=== PATIENT | male | born 1960 | race Caucasian/White ===

== ENCOUNTER 2016-05-31 06:48 | Emergency (ER) | payer SELFPAY ==
--- NOTE | 2016-05-31 07:25 | EDPHY ---
H & P HPI/ROS: Chief complaint. Abdominal pain HPI. 56-year-old male left flank pain for 2 days. He describes it as kidney pain when you have to go to the bathroom to urinate. He has had urinary frequency. The pain waxes and wanes but no radiation from the left flank. It is described as sharp. No anterior abdominal pain. It is not worse with movement or eating and in fact he can't quite get comfortable when it is flared up. No fever, nausea vomiting diarrhea. No similar symptoms previously ROS Constitutional. no fever/chills, no weakness Eyes. no problems with vision ENT. no sore throat, no nasal drainage Cardiovascular. no chest pain Respiratory. no shortness of breath, no cough Abdominal. Left flank pain . no problems urinating MS. no calf pain/swelling, no neck/back pain, no joint pain Skin. no rash Lymph. no swollen glands Neuro. no headache, no dizziness, no difficulty walking or with speech Past Medical/Surgical History: Past medical history diabetes, cholesterol, hypertension, mi Social History: Single nonsmoker no alcohol Smoking Status: Never smoked Physical Exam: General Appearance: Alert well-developed male mild distress vital signs are stable Eyes: Pupils equal and round no pallor or injection. ENT, Mouth: Mucous membranes are moist. Respiratory: There are no retractions, lungs are clear to auscultation. Cardiovascular: Regular rate and rhythm. Gastrointestinal: Abdomen is soft and nontender, no masses, bowel sounds normal. Patient shows me where it hurts in the left flank but it is not worse with palpation Neurological: Awake and alert, sensory and motor exams grossly normal. Skin: Warm and dry, no rashes. Musculoskeletal: Neck is supple nontender. Extremities symmetrical, full range of motion. Psychiatric: Patient is oriented X 3, there is no agitation. Constitutional: Initial Vital Signs Temperature (C) 36.8 C 05/31/16 06:51 Heart Rate 59 L 05/31/16 06:51 Respiratory Rate 20 05/31/16 06:51 Blood Pressure 185/95 H 05/31/16 06:51 O2 Sat (%) 92 05/31/16 06:51 O2 Delivery Mode Room Air Allergies/Adverse Reactions: bacitracin [From Neosporin] Allergy (Verified 05/31/16 06:51) bacitracin zinc [From Neosporin] Allergy (Verified 05/31/16 06:51) cephalexin [Cephalexin] Allergy (Verified 05/31/16 06:51) cephalexin monohydrate [From Keflex] Allergy (Verified 05/31/16 06:51) codeine [Codeine] Allergy (Verified 05/31/16 06:51) gramicidin D [From Neosporin] Allergy (Verified 05/31/16 06:51) latex [Latex] Allergy (Verified 05/31/16 06:51) mupirocin [From Bactroban] Allergy (Verified 05/31/16 06:51) mupirocin calcium [From Bactroban] Allergy (Verified 05/31/16 06:51) neomycin sulfate [From Neosporin] Allergy (Verified 05/31/16 06:51) NSAIDS (Non-Steroidal Anti-Inflamma [Nsaids] Allergy (Verified 05/31/16 06:51) peanut Allergy (Verified 05/31/16 06:51) Penicillins Allergy (Verified 05/31/16 06:51) polymyxin B [From Neosporin] Allergy (Verified 05/31/16 06:51) polymyxin B sulfate [From Neosporin] Allergy (Verified 05/31/16 06:51) Sulfa (Sulfonamide Antibiotics) Allergy (Verified 05/31/16 06:51) sulfamethoxazole [From Bactrim] Allergy (Verified 05/31/16 06:51) trimethoprim [From Bactrim] Allergy (Verified 05/31/16 06:51) clindamycin Allergy (Uncoded 05/31/16 06:51) Home Medications: Medication Instructions Recorded Albuterol [Proventil Inhaler HFA 2 puffs IH Q4H PRN 09/20/14 (*)] Insulin Aspart [novoLOG] 10 - 20 unit SC DAILY@1730 09/20/14 Lisinopril [Zestril 40 mg (*)] 40 mg PO DAILY 09/20/14 Aspirin EC [Aspirin EC 81 mg (*)] 81 mg PO DAILY 01/21/16 Cetirizine [ZyrTEC 10 mg (*)] 10 mg PO DAILY 01/21/16 Diltiazem HCl [Diltiazem 24Hr Cd] 180 mg PO DAILY 01/21/16 Hydrochlorothiazide [HCTZ (*)] 25 mg PO DAILY 01/21/16 Insulin Detemir [Levemir] 33 unit SQ HS #0 vial 01/24/16 Metoprolol Tartrate 04/06/16 Medical Decision Making - Diagnostics Imaging: CT abdomen and pelvis with IV contrast reviewed by me and discussed with Dr. Soriano which shows severe constipation. Otherwise normal Procedures: IV normal saline. Patient declines pain medication at this time ED Course/Re-evaluation: Re-evaluation at 8:10 a.m.. Patient is stable comfortable and does not wish any pain medication. The patient and I discussed laboratory evaluation including a normal urinalysis and serum blood sugar of 270. We discussed further imaging with CT scan of the abdomen and pelvis with IV contrast. Patient expresses understanding and agreement Re-evaluation 10:00 a.m.. The patient and I discussed laboratory and imaging study results. We discussed treatment plan including criteria for return and importance of follow-up and further evaluation. He expresses understanding and agreement Differential Diagnosis: I considered kidney stone, pyelonephritis, diverticulitis, AAA - Data Points Laboratory Results: Laboratory Results 05/31/16 07:35 05/31/16 07:35 05/31/16 05/31/16 05/31/16 07:35 07:35 07:15 WBC 8.95 10^3/uL 10^3/uL (3.80-9.50) RBC 5.89 10^6/uL 10^6/uL (4.40-6.38) Hgb 16.2 g/dL g/dL (13.7-17.5) Hct 48.4 % % (40.0-51.0) MCV 82.2 fL fL (81.5-99.8) MCH 27.5 pg L pg (27.9-34.1) MCHC 33.5 g/dL g/dL (32.4-36.7) RDW 14.0 % % (11.5-15.2) Plt Count 246 10^3/uL 10^3/uL (150-400) MPV 9.9 fL fL (8.7-11.7) Neut % (Auto) 75.9 % H % (39.3-74.2) Lymph % (Auto) 13.9 % L % (15.0-45.0) [place] % (Auto) 7.3 % % (4.5-13.0) Eos % (Auto) 2.3 % % (0.6-7.6) Baso % (Auto) 0.4 % % (0.3-1.7) Nucleat RBC Rel Count 0.0 % % (0.0-0.2) Absolute Neuts (auto) 6.79 10^3/uL H 10^3/uL (1.70-6.50) Absolute Lymphs (auto) 1.24 10^3/uL 10^3/uL (1.00-3.00) Absolute Monos (auto) 0.65 10^3/uL 10^3/uL (0.30-0.80) Absolute Eos (auto) 0.21 10^3/uL 10^3/uL (0.03-0.40) Absolute Basos (auto) 0.04 10^3/uL 10^3/uL (0.02-0.10) Absolute Nucleated RBC 0.00 10^3/uL 10^3/uL (0-0.01) Immature Gran % 0.2 % % (0.0-1.1) Immature Gran # 0.02 10^3/uL 10^3/uL (0.00-0.10) Sodium 138 mEq/L mEq/L (134-144) Potassium 4.8 mEq/L mEq/L (3.5-5.2) Chloride 104 mEq/L mEq/L (97-110) Carbon Dioxide 24 mEq/l mEq/l (22-31) Anion Gap 10 mEq/L mEq/L (8-16) BUN 16 mg/dL mg/dL (7-23) Creatinine 0.9 mg/dL mg/dL (0.7-1.3) Estimated GFR > 60 Glucose 270 mg/dL H mg/dL (70-100) Calcium 8.9 mg/dL mg/dL (8.5-10.4) Specimen Hemolysis 129 Urine Color YELLOW Urine Appearance CLEAR Urine pH 5.0 (5.0-7.5) Ur Specific [place] 1.017 (1.002-1.030) Urine Protein NEGATIVE (NEGATIVE) Urine Ketones TRACE H (NEGATIVE) Urine Blood NEGATIVE (NEGATIVE) Urine Nitrate NEGATIVE (NEGATIVE) Urine Bilirubin NEGATIVE (NEGATIVE) Urine Urobilinogen NEGATIVE EU EU (0.2-1.0) Ur Leukocyte Esterase NEGATIVE (NEGATIVE) Urine RBC 1-3 /hpf /hpf (0-3) Urine WBC 1-3 /hpf /hpf (0-3) Ur Epithelial Cells NONE SEEN /lpf /lpf (NONE-1+) Hyaline Casts 1-5 /lpf /lpf (0-1) Urine Mucus TRACE /lpf /lpf (NONE-1+) Ur Culture Indicated? NOT INDICATED (NI) Urine Glucose 3+ H (NEGATIVE) Medications Given: Discontinued Medications Sodium Chloride (Ns) 1,000 mls @ 0 mls/hr IV ONCE ONE PRN Reason: Wide Open Stop: 05/31/16 08:14 Last Admin: 05/31/16 08:31 Dose: 1,000 mls Departure - Departure Disposition: Home, Routine, Self-Care Clinical Impression: Abdominal pain Qualifiers: Abdominal location: left lower quadrant Qualified Code(s): R10.32 - Left lower quadrant pain Condition: Good Instructions: Constipation (ED), High Fiber Diet (ED) Additional Instructions: Increased fluids including fruit and prune juice. Magnesium citrate, irma Colace from the pharmacy without prescription necessary. Return for worsening pain, fever, vomiting. Recheck in 1-2 days if not improved Referrals: Kathy Faustin, PAC [Primary Care Provider] - 1 day, if not improved
[2016-05-31 07:58] LABS: COLOR YELLOW; LEUKOCYTE ESTERASE,URINE NEGATIVE (NEGATIVE); NITRITE,URINE NEGATIVE (NEGATIVE)
[2016-05-31 08:03] LABS: ANION GAP 10 mEq/L (8-16); CALCIUM 8.9 mg/dL (8.5-10.4); CARBON DIOXIDE 24 mEq/l (22-31); CHLORIDE 104 mEq/L (97-110); CREATININE 0.9 mg/dL (0.7-1.3); GLOMERULAR FILTRATION RATE > 60; GLUCOSE 270 mg/dL (70-100); POTASSIUM 4.8 mEq/L (3.5-5.2); SODIUM 138 mEq/L (134-144); SPECIMEN HEMOLYSIS 129
[2016-05-31 08:05] LABS: % IMMATURE GRANULYOCYTES 0.2 % (0.0-1.1); ABSOLUTE IMMATURE GRANULOCYTES 0.02 10^3/uL (0.00-0.10); ADD DIFF? NO; ADD MORPH? NO; ADD SCAN? NO; ATYPICAL LYMPHOCYTE FLAG 0 (0-99); FRAGMENT RBC FLAG 0 (0-99); HEMATOCRIT 48.4 % (40.0-51.0); HEMOGLOBIN 16.2 g/dL (13.7-17.5); LEFT SHIFT FLG 0 (0-99); LIPEMIA HEMOLYSIS FLAG 80 (0-99); MEAN CELL HEMOGLOBIN 27.5 pg (27.9-34.1); MEAN CELL HEMOGLOBIN CONCENTR. 33.5 g/dL (32.4-36.7); MEAN CELL VOLUME 82.2 fL (81.5-99.8); MEAN PLATELET VOLUME 9.9 fL (8.7-11.7); PLATELET CLUMPS FLAG 0 (0-99); PLATELET COUNT 246 10^3/uL (150-400); RED BLOOD CELL COUNT 5.89 10^6/uL (4.40-6.38)
[2016-05-31 08:06] LABS: MUCUS TRACE /lpf (NONE-1+)
[2016-05-31] MEDS ORDERED: NS 1,000 ML IV ONE (08:13)
[2016-05-31] MEDS ORDERED: IOPAMIDOL (ISOVUE-300) 100 ML BTL IV ONE (08:25)
[2016-05-31 10:22] VITALS: BP 128/79; PULSE 88; RESP 14; TEMP 98.4; O2SAT 96
== END 2016-05-31 10:21 | disposition home or self-care (01) ==
DX: R10.32 Left lower quadrant pain (principal); E11.9 Type 2 diabetes mellitus without complications; I10 Essential (primary) hypertension; I25.2 Old myocardial infarction; Z79.4 Long term (current) use of insulin; Z79.82 Long term (current) use of aspirin; Z91.040 Latex allergy status
CPT/HCPCS: Q9967

== ENCOUNTER 2016-06-06 06:07 | Observation (INO) | payer SELFPAY ==
--- NOTE | 2016-06-06 06:14 | EDPHY ---
H & P HPI/ROS: HPI CHIEF COMPLAINT: Syncope, chest pressure HISTORY OF PRESENT ILLNESS: This patient very pleasant 56-year-old male significant past medical history for coronary artery disease with stents he tells me 3 stents in his LAD, hypertension, hyperlipidemia, obesity, diabetes presents emergency room by EMS after he got very lightheaded while standing in the shower. Patient states he was getting a very hot shower for approximately 20 minutes all the sudden he was washing his hair and felt his arms get very heavy bilaterally. Patient states that his arms felt very heavy he started getting some chest pressure or fullness in the center of his chest and off the left side tells me he was nauseous and he was sweating. Patient tells me that he got out of the shower and sat on the toilet where he had a syncopal episode and then he tells me that while putting on his underwear he had 2 more separate syncopal episodes, he denies falling. Patient denies headache, fever or recent illness. He does tell me he was recently in the emergency room with constipation. Denies neck pain or back pain. Denies abdominal pain. No recent illness. Currently upon arrival to the emergency room he is complaining of a fullness sensation in the center of his chest and nausea. He denies shortness of breath or pleuritic pain. It is noted upon arrival is blood pressure is 200 systolic. Past Medical History: Hypertension, hyperlipidemia, diabetes, coronary artery disease, chronic left leg wound Past Surgical History: PTCA x3 stents in LAD, tonsillectomy Social History: Denies daily use of drugs alcohol tobacco products Family History: Noncontributory ROS REVIEW OF SYSTEMS: A comprehensive 10 point review of systems is otherwise negative aside from elements mentioned in the history of present illness. Exam Constitutional appears well nontoxic, triage nursing summary reviewed, vital signs reviewed, awake/alert. Eyes normal conjunctivae and sclera, EOMI, PERRLA. HENT normal inspection, atraumatic, moist mucus membranes, no epistaxis, neck supple/ no meningismus, no raccoon eyes. Respiratory clear to auscultation bilaterally, normal breath sounds, no respiratory distress, no wheezing. Cardiovascular rate normal, regular rhythm, no murmur, no edema, distal pulses normal. Gastrointestinal umbilical hernia present, soft, non-tender, no rebound, no guarding, normal bowel sounds, no distension, no pulsatile mass. Genitourinary no CVA tenderness. Musculoskeletal no midline vertebral tenderness, full range of motion, no calf swelling, no tenderness of extremities, no meningismus, good pulses, neurovascularly intact. Skin pink, warm, & dry, no rash, skin atraumatic. Neurologic awake, alert and oriented x 3, AAOx3, moves all 4 extremities equally, motor intact, sensory intact, CN II-XII intact, normal cerebellar, normal vision, normal speech. Psychiatric normal mood/affect. Heme/Lymph/Immune no lymphadenopathy. Differential diagnosis includes but is not limited to: ACS, atypical chest pain , pneumothorax, pneumonia, pulmonary embolism, aortic dissection, congestive heart failure, tumor, musculoskeletal pain, esophageal pain, GERD, peptic ulcer disease, pancreatitis Medical Decision Making: this patient had an IV established obtain blood work patient be placed on a full cardiac monitor technician. Patient had an EKG to rule out acute coronary syndrome, chest x-ray. Patient be given full-dose aspirin and nitroglycerin to see if this improves with this chest discomfort. He will be gently hydrated IV fluids and Zofran for nausea. Re-evaluation: EKG interpretation by me on record in [facility] system. Impression time of EKG 6:14 a.m., this is sinus rhythm rate of 81. Q-waves present in lead V1, V2 lead 3 and AVF nonspecific T-wave in aVL and V6 and V4. When I compare this EKG to his EKG on 09/21/2014 very similar morphology. ED x-ray chest one view: image interpreted by myself however this shows cardiomegaly. Lung champagne are clear poor inspiratory effort. Mediastinum is unchanged from previous x-ray. 0702: re-evaluation at this time this patient was given nitroglycerin his blood pressure went from 200 systolic to 150s his chest pressure has resolved. This time is currently resting comfortably. I will need to admit this patient for ACS rule out. No indication this patient is having acute coronary syndrome. EKG is unchanged from previous EKGs. Vital signs are stable. He did receive full-dose aspirin. Risk factors for chest pain include coronary artery disease with multiple stents , hypertension, hyperlipidemia, diabetes, obesity. Final diagnosis: Syncope, Chest pressure, hypertension. 0706: spoke with Dr. Owens who agrees to admit this patient for chest pain evaluation. Time admission at this time patient is hemodynamically stable without any chest pain greatly improved after nitroglycerin. Blood pressure down from 200 to 150s. Stable for admission to the [facility]. Source: Patient, EMS - Personal History Tetanus Vaccine Date: 2011 - Medical/Surgical History Hx Asthma: Yes Hx Chronic Respiratory Disease: Yes Hx Diabetes: Yes Hx Cardiac Disease: Yes Hx Renal Disease: No Hx Cirrhosis: No Hx Alcoholism: No Hx HIV/AIDS: No Hx Splenectomy or Spleen Trauma: No Other PMH: MEd hx-Diabetes,cholesterol,HTN,OK. Surg-umbilical hernia,dental, tonsils,3-stents - Social History Smoking Status: Never smoked Constitutional: Initial Vital Signs O2 Sat (%) 95 06/06/16 06:15 O2 Delivery Mode Room Air O2 (L/minute) 2 Allergies/Adverse Reactions: bacitracin [From Neosporin] Allergy (Verified 06/06/16 06:27) bacitracin zinc [From Neosporin] Allergy (Verified 06/06/16 06:27) cephalexin [Cephalexin] Allergy (Verified 06/06/16 06:27) cephalexin monohydrate [From Keflex] Allergy (Verified 06/06/16 06:27) codeine [Codeine] Allergy (Verified 06/06/16 06:27) gramicidin D [From Neosporin] Allergy (Verified 06/06/16 06:27) latex [Latex] Allergy (Verified 06/06/16 06:27) mupirocin [From Bactroban] Allergy (Verified 06/06/16 06:27) mupirocin calcium [From Bactroban] Allergy (Verified 06/06/16 06:27) neomycin sulfate [From Neosporin] Allergy (Verified 06/06/16 06:27) NSAIDS (Non-Steroidal Anti-Inflamma [Nsaids] Allergy (Verified 06/06/16 06:27) peanut Allergy (Verified 06/06/16 06:27) Penicillins Allergy (Verified 06/06/16 06:27) polymyxin B [From Neosporin] Allergy (Verified 06/06/16 06:27) polymyxin B sulfate [From Neosporin] Allergy (Verified 06/06/16 06:27) Sulfa (Sulfonamide Antibiotics) Allergy (Verified 06/06/16 06:27) sulfamethoxazole [From Bactrim] Allergy (Verified 06/06/16 06:27) trimethoprim [From Bactrim] Allergy (Verified 06/06/16 06:27) clindamycin Allergy (Uncoded 06/06/16 06:27) Home Medications: Medication Instructions Recorded Albuterol [Proventil Inhaler HFA 2 puffs IH Q4H PRN 09/20/14 (*)] Insulin Aspart [novoLOG] 10 - 20 unit SC DAILY@1730 09/20/14 Lisinopril [Zestril 40 mg (*)] 40 mg PO DAILY 09/20/14 Aspirin EC [Aspirin EC 81 mg (*)] 81 mg PO DAILY 01/21/16 Cetirizine [ZyrTEC 10 mg (*)] 10 mg PO DAILY 01/21/16 Diltiazem HCl [Diltiazem 24Hr Cd] 180 mg PO DAILY 01/21/16 Hydrochlorothiazide [HCTZ (*)] 25 mg PO DAILY 01/21/16 Insulin Detemir [Levemir] 33 unit SQ HS #0 vial 01/24/16 Metoprolol Tartrate 04/06/16 Medical Decision Making - Data Points Laboratory Results: Laboratory Results 06/06/16 06:15 06/06/16 06:15 06/06/16 06/06/16 06/06/16 06:15 06:15 06:15 WBC 10.68 10^3/uL H 10^3/uL (3.80-9.50) RBC 6.22 10^6/uL 10^6/uL (4.40-6.38) Hgb 17.2 g/dL g/dL (13.7-17.5) Hct 50.4 % % (40.0-51.0) MCV 81.0 fL L fL (81.5-99.8) MCH 27.7 pg L pg (27.9-34.1) MCHC 34.1 g/dL g/dL (32.4-36.7) RDW 13.9 % % (11.5-15.2) Plt Count 249 10^3/uL 10^3/uL (150-400) MPV 9.3 fL fL (8.7-11.7) Neut % (Auto) 83.6 % H % (39.3-74.2) Lymph % (Auto) 8.8 % L % (15.0-45.0) [place] % (Auto) 6.1 % % (4.5-13.0) Eos % (Auto) 0.7 % % (0.6-7.6) Baso % (Auto) 0.4 % % (0.3-1.7) Nucleat RBC Rel Count 0.0 % % (0.0-0.2) Absolute Neuts (auto) 8.93 10^3/uL H 10^3/uL (1.70-6.50) Absolute Lymphs (auto) 0.94 10^3/uL L 10^3/uL (1.00-3.00) Absolute Monos (auto) 0.65 10^3/uL 10^3/uL (0.30-0.80) Absolute Eos (auto) 0.08 10^3/uL 10^3/uL (0.03-0.40) Absolute Basos (auto) 0.04 10^3/uL 10^3/uL (0.02-0.10) Absolute Nucleated RBC 0.00 10^3/uL 10^3/uL (0-0.01) Immature Gran % 0.4 % % (0.0-1.1) Immature Gran # 0.04 10^3/uL 10^3/uL (0.00-0.10) PT 13.8 SEC SEC (12.0-15.0) INR 1.07 (0.83-1.16) APTT 23.0 SEC SEC (23.0-38.0) Sodium 139 mEq/L mEq/L (134-144) Potassium 3.8 mEq/L mEq/L (3.5-5.2) Chloride 103 mEq/L mEq/L (97-110) Carbon Dioxide 22 mEq/l mEq/l (22-31) Anion Gap 14 mEq/L mEq/L (8-16) BUN 16 mg/dL mg/dL (7-23) Creatinine 1.0 mg/dL mg/dL (0.7-1.3) Estimated GFR > 60 Glucose 281 mg/dL H mg/dL (70-100) Calcium 9.4 mg/dL mg/dL (8.5-10.4) Magnesium 1.8 mg/dL mg/dL (1.6-2.3) Total Bilirubin 1.3 mg/dL mg/dL (0.1-1.4) Conjugated Bilirubin 0.4 mg/dL mg/dL (0.0-0.5) Unconjugated Bilirubin 0.9 mg/dL mg/dL (0.0-1.1) AST 25 IU/L IU/L (17-59) ALT 45 IU/L IU/L (21-72) Alkaline Phosphatase 112 IU/L IU/L (38-126) Creatine Kinase 115 IU/L IU/L (0-224) CK-MB (CK-2) Fraction 2.82 ng/mL ng/mL (0-3.19) Troponin I < 0.012 ng/mL ng/mL (0-0.034) NT-Pro-B Natriuret Pep 154 pg/mL H pg/mL (0-125) Total Protein 8.0 g/dL g/dL (6.3-8.2) Albumin 4.3 g/dL g/dL (3.5-5.0) Lipase 87.0 IU/L IU/L (23-300) Medications Given: Discontinued Medications Aspirin (Aspirin) 324 mg PO EDNOW ONE Stop: 06/06/16 06:16 Last Admin: 06/06/16 06:35 Dose: Not Given Sodium Chloride (Ns) 500 mls @ 0 mls/hr IV ONCE ONE PRN Reason: As Directed Stop: 06/06/16 06:16 Last Admin: 06/06/16 06:30 Dose: 500 mls Nitroglycerin (Nitrostat) 0.4 mg SL Q5M PRN PRN Reason: Chest Pain Stop: 06/06/16 06:26 Last Admin: 06/06/16 06:37 Dose: 0.4 mg Departure - Departure Disposition: [facility] Inpatient Acute Clinical Impression: Syncope Qualifiers: Syncope type: unspecified Qualified Code(s): R55 - Syncope and collapse Chest pain Qualifiers: Chest pain type: unspecified Qualified Code(s): R07.9 - Chest pain, unspecified Condition: Good Referrals: Patient,NotPresent [Unknown] - As per Instructions
[2016-06-06] MEDS ORDERED: NITROGLYCERIN 0.4 MG BTL SL PRN (06:15)
[2016-06-06] MEDS ORDERED: NS 500 ML IV ONE (06:15)
[2016-06-06] MEDS ORDERED: ASPIRIN 81 MG CHEWABLE TAB PO ONE (06:15)
--- NOTE | 2016-06-06 06:17 | CPEKG ---
Heart Rate: 81 RR Interval: 741 P-R Interval: 188 QRSD Interval: 96 QT Interval: 372 QTC Interval: 432 P Woodruff: 42 QRS Woodruff: -13 T Wave Woodruff: 59 EKG Severity - ABNORMAL ECG - EKG Impression: SINUS RHYTHM EKG Impression: PROBABLE LEFT ATRIAL ABNORMALITY EKG Impression: NONSPECIFIC T ABNORMALITIES, ANT-LAT LEADS Electronically Signed By: Yung Kendrick 07-Jun-2016 06:38:41
[2016-06-06 06:31] LABS: % IMMATURE GRANULYOCYTES 0.4 % (0.0-1.1); ABSOLUTE IMMATURE GRANULOCYTES 0.04 10^3/uL (0.00-0.10); ADD DIFF? NO; ADD MORPH? NO; ADD SCAN? NO; ATYPICAL LYMPHOCYTE FLAG 0 (0-99); FRAGMENT RBC FLAG 0 (0-99); HEMATOCRIT 50.4 % (40.0-51.0); HEMOGLOBIN 17.2 g/dL (13.7-17.5); LEFT SHIFT FLG 0 (0-99); LIPEMIA HEMOLYSIS FLAG 90 (0-99); MEAN CELL HEMOGLOBIN 27.7 pg (27.9-34.1); MEAN CELL HEMOGLOBIN CONCENTR. 34.1 g/dL (32.4-36.7); MEAN PLATELET VOLUME 9.3 fL (8.7-11.7); PLATELET CLUMPS FLAG 0 (0-99); PLATELET COUNT 249 10^3/uL (150-400); RED BLOOD CELL COUNT 6.22 10^6/uL (4.40-6.38); RED CELL DISTRIBUTION WIDTH 13.9 % (11.5-15.2)
[2016-06-06] MEDS ORDERED: NITROGLYCERIN 0.4 MG BTL SL ONE (06:36)
[2016-06-06 06:39] LABS: INR 1.07 (0.83-1.16); PROTIME(PATIENT) 13.8 SEC (12.0-15.0)
[2016-06-06 06:53] LABS: ALANINE AMINOTRANSFERASE 45 IU/L (21-72); ALBUMIN 4.3 g/dL (3.5-5.0); ALKALINE PHOSPHATASE 112 IU/L (38-126); ANION GAP 14 mEq/L (8-16); ASPARTATE AMINOTRANSFERASE 25 IU/L (17-59); BILIRUBIN,TOTAL 1.3 mg/dL (0.1-1.4); BILIRUBIN-CONJUGATED 0.4 mg/dL (0.0-0.5); BILIRUBIN-UNCONJUGATED 0.9 mg/dL (0.0-1.1); CALCIUM 9.4 mg/dL (8.5-10.4); CARBON DIOXIDE 22 mEq/l (22-31); CHLORIDE 103 mEq/L (97-110); GLOMERULAR FILTRATION RATE > 60; GLUCOSE 281 mg/dL (70-100); MAGNESIUM 1.8 mg/dL (1.6-2.3); POTASSIUM 3.8 mEq/L (3.5-5.2); SODIUM 139 mEq/L (134-144)
[2016-06-06 07:05] LABS: CREATINE KINASE-MB FRACTION 2.82 ng/mL (0-3.19); TROPONIN I < 0.012 ng/mL (0-0.034)
[2016-06-06] MEDS ORDERED: ALBUTEROL 60 PUFFS/8 GM MDI IH PRN (10:55)
[2016-06-06] MEDS ORDERED: LISINOPRIL 40 MG TAB PO ONE (10:57)
[2016-06-06] MEDS ORDERED: DILTIAZEM CD 180 MG CAP PO ONE (10:58)
[2016-06-06] MEDS ORDERED: ACETAMINOPHEN 325 MG TAB PO PRN (11:03)
[2016-06-06] MEDS ORDERED: ONDANSETRON 4 MG/2 ML VIAL IVP PRN (11:03)
[2016-06-06] MEDS ORDERED: D50W 25 GM/50 ML SYR IVP PRN (11:07)
[2016-06-06] MEDS ORDERED: IOPAMIDOL (ISOVUE-370) 150 ML BTL IV ONE (11:44)
[2016-06-06] MEDS: NS 1,000 ML IV SCH (11:51)
--- NOTE | 2016-06-06 11:56 | GHP ---
DATE OF ADMISSION: 06/06/2016 CHIEF COMPLAINT: Chest pain and syncope. HISTORY: The patient is a 56-year-old male with a history of coronary artery disease, status post m ultiple stents to his LAD. His last stent to the LAD placed by Dr. Patrick was in September of 2014. He has been having no recurrent symptoms until this morning. This morning he was taking a hot shower, when he suddenly became lightheaded. He was washing his hair, and noticed both of his arms felt hea vy. The pain subsequently moved into his chest, which he described more like a fullness, feeling li ke a gas bubble in the center of his chest. He did have some associated nausea, diaphoresis. He fe lt like his heart was racing. He has been having recent increased GI symptoms, and does have a hist ory of diabetic gastroparesis. He recently had an ER visit a few days ago for constipation. He got out of the shower and sat on the toilet, where he promptly passed out. At that point he knew , given his cardiac history, he needed evaluation. So, he decided to quickly get dressed before he called 911. He passed out 2 more times after that. He has previous anginal equivalent prior to his previous stents with syncope and back pain. He has never had a classic chest pain pattern. Right now he is chest pain-free, feeling hungry, tired and under caffeinated. PAST MEDICAL HISTORY: 1. Hypertension. 2. Diabetes type 2. 3. Coronary artery disease, status post multiple stents to the left anterior descending. Last sten t placement was September 2014. 4. Hyperlipidemia. 5. Aspirin allergy, status post desensitization. 6. Macular degeneration, on ocular Thang injections. 7. Diabetic gastroparesis. MEDICATIONS: Please see computer record for full detailed list. ALLERGIES: Bacitracin, Keflex, penicillin, sulfa, clindamycin, NSAIDs and aspirin. SOCIAL HISTORY: No smoking. No alcohol. He works in market research. He lives with his elderly p arents. He has 2 grown children. His daughter is his power of attorney at law. REVIEW OF SYSTEMS: Complete review of systems obtained. Review of system is negative regarding con stitutional, HEENT, GI, pulmonary, cardiovascular, , hematology, skin, musculoskeletal, endocrine, psych, except for positives as in HPI. FAMILY HISTORY: Reviewed, noncontributory to presenting complaint. PHYSICAL EXAMINATION: GENERAL: Well-developed, well-nourished male, in no acute distress. VITAL S IGNS: Temperature is 36.9, pulse 71, blood pressure 209/107, saturating 86% on room air. EYE: Nor mal conjunctiva. Pupils equal, react to light. ENT: Normal ears and nose. Hearing intact. Deborah l lips and teeth. Oropharynx moist. NECK: Trachea midline. No thyromegaly. CHEST: Normal effor t. LUNGS: Clear to auscultation bilaterally. CARDIOVASCULAR: Regular rate and rhythm. No murmur . No lower extremity edema. ABDOMEN: Soft, nontender. No hepatosplenomegaly. SKIN: Warm, dry, intact without rash. MUSCULOSKELETAL: No cyanosis or clubbing. Strength 5/5 upper and lower extre mities. NEURO: Cranial nerves intact. Normal sensation light touch. PSYCH: Alert and oriented x 3. Normal affect. Normal judgment and insight. Normal memory. LABS: White count 10.6, hematocrit 50.4, platelets 249, sodium 139, potassium 3.8, chloride 103, bi carb 22, BUN 16, creatinine 1.0, glucose 281. LFTs are negative. Lipase is 87, BNP is 154, troponi n is negative, INR is 1.07. EKG reviewed by me. My personal interpretation is normal sinus rhythm. Inferior lateral T-wave inv ersions. Review of old EKG and old chart shows that these EKG changes are consistent with his last EKG on record. Chest x-ray is negative. MEDICAL RECORD REVIEW: I reviewed medical chart and regarding previous stent placement September [address] Patrick. Also had an admission in 2012 for the same. ASSESSMENT/PLAN: 1. Chest pain. His EKG is unchanged from previous, and his initial troponin is negative. He is no w chest pain free. We will continue with aspirin metoprolol. We will follow serial troponins and E KGs. If these remain unchanged, we will schedule for stress test in the morning. 2. Syncope. This very well may be vasodilatation due to being in a hot shower versus a vagal event , given his recent increasing GI symptoms. Syncope, however, has been his anginal equivalent in the past, indicating that he has needed a stent placement. We will watch him on telemetry, and check a n echocardiogram and a TSH. 3. Hypoxemia. He did present 86% on room air with no obvious chest x-ray findings. Given his pres entation of syncope, we will get a CT angiogram of the chest, rule out PE. 4. Hypertension. This is uncontrolled on presentation. We will resume his home medications, plus add p.r.n. hydralazine. Perhaps hypertensive urgency may be contributing to his presenting complain ts. 5. Coronary artery disease, status post previous stents to left anterior descending as discussed ab ove. We will recheck a lipid panel in the morning, as he does not appear to be on a statin. 6. Diabetes type 2. We will continue his usual insulin plus an insulin sliding scale. 7. Aspirin allergy, status post desensitization. He is able to tolerate a daily aspirin now, as lo ng as he takes his Zyrtec with it. That will be continued. COURSE: Code status is full. ADMISSION STATUS: We will admit to observation as depending on workup above will determine clinical course. DVT PROPHYLAXIS: He is high risk. We will place on subcu Lovenox. /[id number]/[id number]
[2016-06-06] MEDS ORDERED: NON-FORMULARY NEW DRUG (Insulin Aspart [Novolog] 5 UNIT) SC SCH (12:00)
--- NOTE | 2016-06-06 13:17 | ECHO ---
[id number] + + [address] : : [place] [address] : : [phone] + + Adult Echocardiographic Report + ---+ :Name: PENNY DUARTE JStudy Date: 06/06/2016 11:37 AM : : Hospital Admission Number: [id number] Location: 212: :: 1960 Gender: Male Height: 69 in : :Age: 56 yrs Race: WH,White Weight: 235 lb : :Reason For Study: syncope : : BSA: 2.2 meters2 : :History: Stents, CAD : + ---+ MMode/2D Measurements \T\ Calculations IVSd: 0.92 cm LVIDd: 4.9 cm FS: 33.1 % LVOT diam: 2.2 cm LVPWd: 1.3 cm LVIDs: 3.3 cm EDV(Teich): 114.4 ml LVOT area: 3.8 cm2 ESV(Teich): 44.1 ml EF(Teich): 61.4 % Normal Measurement Values: + + :LVIDd (3.5-5.7cm) IVSd (0.6-1.1cm) LVPWd (0.6-1.1cm) Aortic Root (2.0-3.7cm)Left Atrium (1.5-4.0cm): :LV Vol(d) (76-115ml) LV Vol(s) (29-48ml) Ejec Fraction (50-65%)PV Sergio (0.6- 1.2m/s) TV Sergio (0.4-1.0m/s) : :MV E Sergio (0.8-1.0m/s)MV A Sergio (0.3-1.0m/s)LVOT Sergio (0.7-1.2m/s) Asc Ao Sergio ( 0.9-1.8m/s) : + + Doppler Measurements \T\ Calculations MV E max sergio: MV V2 max: Ao V2 max: LV V1 max: 59.2 cm/sec 118.0 cm/sec 169.5 cm/sec 123.0 cm/sec MV A max sergio: MV max PG: Ao max PG: LV V1 max P.8 cm/sec 5.6 mmHg 11.5 mmHg 6.1 mmHg MV E/A: 0.62 MV V2 mean: Ao mean PG: LV V1 mean PG: MV dec time: 57.1 cm/sec 5.0 mmHg 3.0 mmHg 0.20 sec MV mean PG: Ao V2 mean: LV V1 mean: 2.0 mmHg 108.0 cm/sec 83.6 cm/sec MV V2 VTI: 35.1 cmAo V2 VTI: 36.2 cm LV V1 VTI: 32.0 cm MVA(VTI): 3.5 cm2 JOANNA(I,D): 3.4 cm2 JOANNA(V,D): 2.8 cm2 SV(LVOT): 121.6 ml PA V2 max: RAP systole: 107.0 cm/sec 15.0 mmHg PA max P.6 mmHg Left Ventricle The left ventricle is normal in size and function. There is borderline concentric left ventricular hypertrophy. The left ventricular ejection fraction is normal. There is Doppler evidence for diastolic dysfunction. Regional wall motion abnormalities cannot be excluded due to limited visualization. Right Ventricle The right ventricle is normal in size and function. Atria The left atrial size is normal. Right atrial size is normal. The interatrial septum is intact with no evidence for an atrial septal defect. Mitral Valve The mitral valve is normal in structure and function. There is no mitral valve stenosis. There is trace mitral regurgitation. Tricuspid Valve The tricuspid valve is normal in structure and function. There is no tricuspid stenosis. There is trace tricuspid regurgitation. Right ventricular systolic pressure is normal. Aortic Valve The aortic valve is normal in structure and function. There is no aortic stenosis. There is no aortic insufficiency. Pulmonic Valve The pulmonic valve is not well visualized. There is no pulmonic valvular stenosis. There is no pulmonic valvular regurgitation. Great Vessels The aortic root is normal size. Pericardium/Pleural There is a fat pad seen. Conclusion A complete two-dimensional transthoracic echocardiogram was performed (2D, M-mode, Doppler and color flow Doppler). The study was technically difficult. The left ventricle is normal in size and function. There is borderline concentric left ventricular hypertrophy. The left ventricular ejection fraction is normal. There is Doppler evidence for diastolic dysfunction. Normal appearing valvular structures. There is trace mitral regurgitation. There is trace tricuspid regurgitation. Right ventricular systolic pressure is normal. Final Reading Physician: Jese Young signed on 06/06/2016 01:16 PM Ordering Physician: Beth Monroy Performed By: Katherin Argueta
[2016-06-06] MEDS: INSULIN REGULAR HUMAN 100 UNIT/ML SC SCH ×3 (13:29→22:17)
[2016-06-06] MEDS: INSULIN LISPRO 100 UNIT/ML SC SCH ×2 (13:30→18:25)
[2016-06-06] MEDS ORDERED: METOPROLOL TARTRATE 50 MG TAB PO SCH (21:00)
[2016-06-06] MEDS ORDERED: INSULIN DETEMIR 33 UNIT SQ SCH (21:00)
[2016-06-06] MEDS: hydrALAZINE 20 MG/ML VIAL IVP PRN (21:09)
[2016-06-06] MEDS: INSULIN GLARGINE 100 UNITS/ML SYRINGE SC SCH (22:06)
[2016-06-06] MEDS: METOPROLOL TARTRATE 25 MG TAB PO SCH (22:08)
[2016-06-07] MEDS: NS 1,000 ML IV SCH (02:00)
[2016-06-07] MEDS: hydrALAZINE 20 MG/ML VIAL IVP PRN (05:00)
[2016-06-07 05:33] LABS: % IMMATURE GRANULYOCYTES 0.3 % (0.0-1.1); ABSOLUTE IMMATURE GRANULOCYTES 0.02 10^3/uL (0.00-0.10); ADD DIFF? NO; ADD MORPH? NO; ADD SCAN? NO; ATYPICAL LYMPHOCYTE FLAG 10 (0-99); FRAGMENT RBC FLAG 0 (0-99); HEMATOCRIT 48.1 % (40.0-51.0); LEFT SHIFT FLG 0 (0-99); LIPEMIA HEMOLYSIS FLAG 80 (0-99); MEAN CELL HEMOGLOBIN 27.8 pg (27.9-34.1); MEAN CELL HEMOGLOBIN CONCENTR. 33.3 g/dL (32.4-36.7); MEAN CELL VOLUME 83.5 fL (81.5-99.8); MEAN PLATELET VOLUME 9.5 fL (8.7-11.7); PLATELET CLUMPS FLAG 0 (0-99); PLATELET COUNT 228 10^3/uL (150-400); RED BLOOD CELL COUNT 5.76 10^6/uL (4.40-6.38); RED CELL DISTRIBUTION WIDTH 14.2 % (11.5-15.2)
[2016-06-07 06:12] LABS: ANION GAP 10 mEq/L (8-16); CALCIUM 8.7 mg/dL (8.5-10.4); CARBON DIOXIDE 23 mEq/l (22-31); CHLORIDE 106 mEq/L (97-110); CHOLESTEROL 165 mg/dL (140-220); CHOLESTEROL/HDL RATIO 3.84 RATIO (1.00-4.97); CREATININE 0.7 mg/dL (0.7-1.3); GLOMERULAR FILTRATION RATE > 60; GLUCOSE 184 mg/dL (70-100); HIGH DENSITY LIPOPROTEIN 43 mg/dL (40-65); LDL/HDL RATIO 2.21 RATIO (1.00-3.64); LOW DENSITY LIPOPROTEIN 95 mg/dL (80-100); NON-HIGH DENSITY LIPOPROTEIN 122 mg/dL (90-129); POTASSIUM 4.2 mEq/L (3.5-5.2); SODIUM 139 mEq/L (134-144); TRIGLYCERIDE 138 mg/dL (40-150); VERY LOW DENSITY LIPOPROTEINS 27 mg/dL (8-25)
--- NOTE | 2016-06-07 08:40 | CPEKG ---
Heart Rate: 66 RR Interval: 909 P-R Interval: 184 QRSD Interval: 92 QT Interval: 396 QTC Interval: 415 P Clifton: 63 QRS Clifton: 5 EKG Severity - ABNORMAL ECG - EKG Impression: SINUS RHYTHM EKG Impression: CONSIDER ANTEROSEPTAL INFARCT EKG Impression: NONSPECIFIC T ABNORMALITIES, LATERAL LEADS Electronically Signed By: Jordan Hill 07-Jun-2016 10:00:52
[2016-06-07] MEDS: INSULIN REGULAR HUMAN 100 UNIT/ML SC SCH ×2 (08:48→17:37)
[2016-06-07] MEDS: INSULIN LISPRO 100 UNIT/ML SC SCH ×3 (08:48→17:59)
[2016-06-07] MEDS: METOPROLOL TARTRATE 25 MG TAB PO SCH ×2 (08:49→21:28)
[2016-06-07] MEDS: HYDROCHLOROTHIAZIDE 25 MG TAB PO SCH (08:49)
[2016-06-07] MEDS: DILTIAZEM CD 180 MG CAP PO SCH (08:49)
[2016-06-07] MEDS: CETIRIZINE 10 MG TAB PO SCH (08:50)
[2016-06-07] MEDS: LISINOPRIL 40 MG TAB PO SCH (08:50)
[2016-06-07] MEDS: ASPIRIN EC 81 MG TAB PO SCH (08:50)
[2016-06-07] MEDS ORDERED: BENZOCAINE (ORAJEL) GEL 11.9GM TUBE TP PRN (09:21)
[2016-06-07] MEDS ORDERED: REGADENOSON 0.4 MG/5 ML SYR IVP ONE (12:09)
--- NOTE | 2016-06-07 12:55 | PDCARST ---
CAR Stress Test Results Type of Stress Test: Lexiscan stress test Indication: syncope/known CAD Description of Procedure: After informed consent was obtained, pt was established to ECG, oximetry, HR, and BP monitoring. At b/l, he has SR with lateral ST-T w abn and Twi, BP 136/84, HR 70, O2 sat 95% RA. Lexiscan was infused with minimal side effects. BP, HR, and oximetry stable throughout test. ECG without any significant changes from baseline. Impression: Uneventful Lexiscan Conclusion: Await nuclear images.
[2016-06-07] MEDS ORDERED: IOPAMIDOL (ISOVUE-370) 150 ML BTL IV ONE ×2 (13:25→13:27)
[2016-06-07] MEDS ORDERED: BIVALIRUDIN 250 MG/5 ML VIAL IV ONE (13:25)
[2016-06-07] MEDS ORDERED: LIDOCAINE 1% 30 ML SDV ONE (13:26)
[2016-06-07] MEDS ORDERED: NITROGLYCERIN 1,500 MCG/15 ML VIAL MISC ONE (13:26)
[2016-06-07] MEDS ORDERED: fentaNYL 100 MCG/2 ML INJ ONE (13:26)
[2016-06-07] MEDS ORDERED: DIAZEPAM 5 MG TAB PO ONE (13:27)
[2016-06-07] MEDS ORDERED: FAMOTIDINE 20 MG TAB PO ONE (13:27)
[2016-06-07] MEDS ORDERED: diphenhydrAMINE 25 MG CAP PO ONE ×2 (13:27→13:50)
[2016-06-07] MEDS ORDERED: ASPIRIN EC 325 MG TAB PO ONE ×2 (13:27→13:51)
[2016-06-07] MEDS ORDERED: MIDAZOLAM 2 MG/2 ML VIAL ONE ×3 (13:27→14:15)
[2016-06-07] MEDS ORDERED: NS 1,000 ML IV ONE (13:27)
--- NOTE | 2016-06-07 13:27 | PDCARPN ---
Cardiology Progress Note Chief Complaint: syncope Assessment/Plan: Assessment: Cristhian is a 56 y/o M with PMH T2DM (poorly controlled), HTN, dyslipidemia, and CAD with prior interventions to LAD in . He presented after having a syncopal episode subsequent to taking a hot shower. He felt like his towel was very heavy. He was able to get over to the toilet and sit down and proceeded to lose consciousness for what feel feels was a couple of minutes. His previous symptoms that heralded cardiac issues was syncope and back pain, and so he presented to the ED for further evaluation. #. syncope: enzymes negative/ ECG mostly at b/l. echo shows no RWMA though it was a technically difficult study pt had nausea/vomiting, AF, cp after nuclear imaging completed- pt is being sent to CCL for urgent CCL #. CAD: not on statin for unclear reasons/ cont ASA and BB #. htn: BP elevated possibly due to decreased Metoprolol dose or pt was just having poor BP control add scheduled Hydralazine to HCTZ, Cardizem, Lisinopril, and Metoprolol if this does not improve BP, would consider imaging to r/o renal artery stenosis #. T2DM: appears to be poorly controlled pt will need lifestyle interventions #. AF: new problem more recs to follow [facility] 06/07/16 13:06 Subjective: He reports feeling chilled and nauseated. Post nuc imaging, developed vomiting. Is in AF currently with cp. Reviewed/Discussed With: hospitalist (Dr. Monroy) Objective: Vital Signs (8 Hrs) Temp Pulse Resp BP Pulse Ox 06/07/16 11:22 98.1 F 72 19 180/95 H 95 06/07/16 08:45 96 06/07/16 07:33 97.8 F 65 17 170/83 H 96 Intake/Output (24 Hrs) 06/06/16 06/07/16 06/08/16 05:59 05:59 05:59 Intake Total 2480 Output Total 1100 Balance 1380 Intake: Oral (ml) 580 IV Infused (ml) 1900 Ns 1,000 ml @ 100 mls/hr 1400 IV CONT JESUS Rx#: [id number] Output: Urine (ml) 1100 Urinal 1100 Other: Weight 106.8 kg Intake Quantity Yes Sufficient Output Comment Urinal wt 107.3 Number of Voids 1 Toilet 3 Urinal 2 Result Diagrams: 06/07/16 04:30 06/07/16 04:30 Cardiac Labs: Cardiac Lab Results (72 Hrs) 06/06/16 06/06/16 17:50 11:34 Troponin I 0.020 0.020 EKG: SR with lat T w inversion Telemetry: SR with Twi Echocardiogram: EF wnl, bord LVH - Physical Exam Constitutional: no apparent distress Eyes: PERRL Ears, Nose, Mouth, Throat: moist mucous membranes Cardiovascular: no rubs, no gallops, No systolic murmur Respiratory: clear to auscultate bilat, no crackles Neurologic: AAOx3 Psychiatric: cooperative, interactive ICD10 Worksheet Patient Problems: Problems Problem Status Onset Chest pain Acute Syncope Acute Acute anterior epistaxis Acute Cellulitis Acute Chest pain Acute Coronary angioplasty status Acute
[2016-06-07 13:47] LABS: ANION GAP 14 mEq/L (8-16); CALCIUM 9.8 mg/dL (8.5-10.4); CARBON DIOXIDE 25 mEq/l (22-31); CHLORIDE 98 mEq/L (97-110); CREATININE 0.7 mg/dL (0.7-1.3); GLOMERULAR FILTRATION RATE > 60; GLUCOSE 265 mg/dL (70-100); SODIUM 137 mEq/L (134-144)
[2016-06-07] MEDS ORDERED: FAMOTIDINE 20 MG TAB ONE (13:51)
[2016-06-07] MEDS ORDERED: DIAZEPAM 5 MG TAB ONE (13:51)
[2016-06-07 13:58] LABS: CREATINE KINASE-MB FRACTION 2.19 ng/mL (0-3.19); TROPONIN I < 0.012 ng/mL (0-0.034)
[2016-06-07] MEDS ORDERED: hydrALAZINE 20 MG/ML VIAL ONE (14:20)
--- NOTE | 2016-06-07 14:29 | PDDXCAT ---
Diagnostic Cath Note - . Date: 06/07/16 Fleet Sales Manager: Ronny Indication: other (h/o CAD and prior PCI; chest pain, diaphoresis, nausea, vomiting, and new a-fib following Lexiscan Nuc stress) - Procedure Access: right groin Procedure: left heart catheterization, coronary angiography, left ventriculogram - Materials Left Heart Cath size: 6F Left Heart Cath materials: standard multipack (JL4, JR4, pigtail) - Findings-Left Heart Catheterization LM: Normal. LAD: Previously placed stents in mid-LAD patent with approximately 20 to 30% restenosis in the mid-portion of the stented segment; o/w minimal irregularities. LCX: Minimal irregularities. RCA: Mild to moderate disease of the mid-RCA up to 40%. EDP: 16 mmHg LVEF: 70% Wall motion: Normal. Estimated blood loss: <50ml Closure method: manual pressure Assessment: 1) Normal LV systolic function. 2) Qaq-flcs-lgtllvmv restensosis of LAD stent site. 3) Qna-autx-jjtmnslb disease of the mid-RCA. Likely had a significant vasovagal episode following pharmacologic stress test. Now in rate controlled atrial fibrillation. If does not spontaneoulsy convert to sinus rhythm overnight can consider cardioversion prior to discharge or early next week as an outpatient. Will start Eliquis 4 hours after cath. Patient Problems: Problems Problem Status Onset Chest pain Acute Syncope Acute Acute anterior epistaxis Acute Cellulitis Acute Chest pain Acute Coronary angioplasty status Acute
[2016-06-07] MEDS: ENOXAPARIN 40 MG/0.4 ML SYR SC SCH (17:38)
[2016-06-07] MEDS: hydrALAZINE 10 MG TAB PO SCH ×2 (17:50→21:29)
--- NOTE | 2016-06-07 17:56 | HOSPPROG ---
Hospitalist Progress Note Assessment/Plan: * Chest pain - h/o CAD/stents -cardiac cath negative * Rapid afib -cardioversion in am if still in afib -diltiazem, metoprolol -Eliquis added * HTN * DM II -insulin * ASA allergy - s/p desensitization Subjective: Had another vagal reaction to stress test, went into rapid afib Objective: Vital Signs Temp Pulse Resp BP Pulse Ox 36.8 C 86 16 149/82 H 93 06/07/16 16:28 06/07/16 17:34 06/07/16 17:34 06/07/16 17:46 06/07/16 17:34 Laboratory Results 06/07/16 04:30 06/07/16 13:20 06/06/16 06/07/16 06/08/16 05:59 05:59 05:59 Intake Total 2480 Output Total 1100 Balance 1380 PT 13.8 SEC (12.0-15.0) 06/06/16 06:15 INR 1.07 (0.83-1.16) 06/06/16 06:15 d/w Taya Singleton - after stress test reaction - patient went to cath CTA chest: no PE - Physical Exam Constitutional: no apparent distress, appears nourished, not in pain Cardiovascular: regular rate and rhythym, no murmur, rub, or gallop Respiratory: no respiratory distress, no rales or rhonchi, clear to auscultation Gastrointestinal: normoactive bowel sounds, soft, non-tender abdomen, no palpable masses Skin: no rashes or abrasions, no fluctuance, no induration Neurologic: AAOx3, sensation intact bilaterally Psychiatric: interacting appropriately, not anxious, not encephalopathic, thought process linear ICD10 Worksheet Patient Problems: Problems Problem Status Onset Chest pain Acute Syncope Acute Acute anterior epistaxis Acute Cellulitis Acute Chest pain Acute Coronary angioplasty status Acute
[2016-06-07] MEDS: INSULIN LISPRO 100 UNIT/1 ML VIAL STANDARD SC SCH (17:59)
[2016-06-07] MEDS: APIXABAN 5 MG TAB PO SCH (21:30)
[2016-06-07] MEDS: INSULIN GLARGINE 100 UNITS/ML SYRINGE SC SCH (21:30)
--- NOTE | 2016-06-08 05:43 | CPEKG ---
Heart Rate: 67 RR Interval: 896 P-R Interval: 184 QRSD Interval: 96 QT Interval: 396 QTC Interval: 418 P Homer: 43 QRS Homer: -3 T Wave Homer: 170 EKG Severity - ABNORMAL ECG - EKG Impression: SINUS RHYTHM EKG Impression: ABNORMAL T, CONSIDER ISCHEMIA, ANT-LAT LEADS Electronically Signed By: Jordan Hill 08-Jun-2016 12:53:03
[2016-06-08 07:52] VITALS: O2SAT 96
[2016-06-08] MEDS: DILTIAZEM CD 180 MG CAP PO SCH (09:01)
[2016-06-08] MEDS: APIXABAN 5 MG TAB PO SCH (09:01)
[2016-06-08] MEDS: METOPROLOL TARTRATE 25 MG TAB PO SCH (09:01)
[2016-06-08] MEDS: LISINOPRIL 40 MG TAB PO SCH (09:02)
[2016-06-08] MEDS: HYDROCHLOROTHIAZIDE 25 MG TAB PO SCH (09:02)
[2016-06-08] MEDS: CETIRIZINE 10 MG TAB PO SCH (09:02)
[2016-06-08] MEDS: ASPIRIN EC 81 MG TAB PO SCH (09:02)
[2016-06-08] MEDS: hydrALAZINE 10 MG TAB PO SCH (09:02)
[2016-06-08] MEDS: ENOXAPARIN 40 MG/0.4 ML SYR SC SCH (09:03)
[2016-06-08] MEDS: INSULIN LISPRO 100 UNIT/ML SC SCH ×2 (09:08→12:46)
[2016-06-08] MEDS: INSULIN LISPRO 100 UNIT/1 ML VIAL STANDARD SC SCH ×2 (09:09→12:47)
--- NOTE | 2016-06-08 10:16 | PDCARPN ---
Cardiology Progress Note Assessment/Plan: Assessment: Assuming Care. This is my first time seeing him. Cristhian is a 56 y/o M with PMH T2DM (poorly controlled), HTN, dyslipidemia, and CAD with prior interventions to LAD in . He presented after having a syncopal episode subsequent to taking a hot shower. He felt like his towel was very heavy. He was able to get over to the toilet and sit down and proceeded to lose consciousness for what feel feels was a couple of minutes. His previous symptoms that heralded cardiac issues was syncope and back pain, and so he presented to the ED for further evaluation. #. syncope: enzymes negative/ ECG mostly at b/l. echo shows no RWMA though it was a technically difficult study pt had nausea/vomiting, AF, cp after nuclear imaging completed- pt is being sent to CCL for urgent CCL #. CAD: not on statin for unclear reasons/ cont ASA and BB #. htn: BP elevated possibly due to decreased Metoprolol dose or pt was just having poor BP control add scheduled Hydralazine to HCTZ, Cardizem, Lisinopril, and Metoprolol if this does not improve BP, would consider imaging to r/o renal artery stenosis #. T2DM: appears to be poorly controlled pt will need lifestyle interventions #. AF: new problem more recs to follow [facility] 06/07/16 13:06 Plan: 06/08/16 10:11 Assuming care. This is my first time seeing him. CAD: Earlier yesterday he had a mildly positive Lexiscan Nuclear stress test showing small reversible ischemia along the inferior wall. Dr Michele Jefferson took him to analytical laboratory technician yesterday finding Patent stents. Cath right Groin site shows no bleeding, induration, or hematoma. He reports that he had a good night. He is cardiac stable for discharge. HTN: Well controlled now on Metoprolol, Hydralazine, HCTZ, Cardizem, and Lisinopril. A Fib: He had a brief episode after his Lexiscan yesterday. Dr Jefferson felt that his nausea, hypertensive episode at that time was likely a Vasovagal Response. This may have triggered the A Fib. Today he remains in RSR. Recommend going home on Eliquis for one month. Will have him seen in office in one week and plan for a Holter Monitor to evaluate for transient A Fib. 06/08/16 10:24 Objective: Vital Signs (8 Hrs) Temp Pulse Resp BP Pulse Ox 06/08/16 09:02 138/75 H 06/08/16 09:01 71 138/75 H 06/08/16 07:51 36.4 C 71 16 138/75 H 96 06/08/16 05:32 36.4 C 74 14 126/74 H 97 Intake/Output (24 Hrs) 06/07/16 06/08/16 06/09/16 05:59 05:59 05:59 Intake Total 2480 500 Output Total 1100 600 Balance 1380 -100 Intake: Oral (ml) 580 500 IV Infused (ml) 1900 Ns 1,000 ml @ 100 mls/hr 1400 IV CONT JESUS Rx#: [id number] Output: Urine (ml) 1100 600 Urinal 1100 600 Other: Weight 106.8 kg Intake Quantity Yes Yes Sufficient Output Comment Urinal wt 107.3 Number of Voids 1 Toilet 3 2 Urinal 2 1 Result Diagrams: 06/07/16 04:30 06/07/16 13:20 Cardiac Labs: Cardiac Lab Results (72 Hrs) 06/07/16 06/06/16 06/06/16 13:20 17:50 11:34 CK-MB (CK-2) Fraction 2.19 Troponin I < 0.012 0.020 0.020 - Physical Exam Constitutional: no apparent distress, obese Cardiovascular: regular rate and rhythm, no murmurs, no rubs, no gallops, other (frequent PVC's) Peripheral Pulses: 2+: femoral (R), femoral (L), dorsalis-pedis (R), dorsalis- pedis (L) Respiratory: clear to auscultate bilat, no crackles, no wheezes Skin: warm, no edema Neurologic: AAOx3 Psychiatric: cooperative, interactive Lymph, Heme, Immunologic: no ecchymoses ICD10 Worksheet Patient Problems: Problems Problem Status Onset Chest pain Acute Syncope Acute Acute anterior epistaxis Acute Cellulitis Acute Chest pain Acute Coronary angioplasty status Acute
[2016-06-08 11:19] VITALS: BP 133/72; PULSE 74; RESP 20; TEMP 98.2
--- NOTE | 2016-06-08 18:43 | GDS ---
DISCHARGE DIAGNOSES: 1. Chest pain with negative cardiac catheterization. 2. Coronary artery disease, status post previous LAD stents which are patent. 3. Transient rapid atrial fibrillation immediately after stress testing. 4. Hypertension. 5. Diabetes type 2, uncontrolled. 6. Aspirin allergy, status post desensitization. HISTORY OF PRESENT ILLNESS: The patient is a 56-year-old male who has a history of coronary artery disease requiring multiple stents to his LAD in the past. He presents to the hospital after having a chest pain episode with subsequent syncope while he was taking a hot shower. [facility] and had no EKG changes or troponin elevation. He went to stress testing, and a stat tea m was called during his stress test because he started vomiting and went into a rapid atrial fibrill ation. His stress test was actually interpreted as positive. He went to cardiac catheterization, a nd his stents are patent with some mild in-stent stenosis of 30% to 40%, and no intervention was per formed. He flipped spontaneously out of atrial fibrillation. It is unclear whether this is somethi ng he does chronically or just due to the stress of the stress test. He will be treated with Eliqui s for 1 month, and Cardiology as an outpatient will do Holter monitoring to assess for a silent atri al fibrillation on a more chronic basis. It also appears his chronic conditions are suboptimally managed at baseline. He tells me his last h emoglobin A1c was 13. His statin was discontinued 2 years ago, because he had some increased LFTs, which was thought to be related to his diabetes and a statin was never resumed. His hypertension wa s poorly controlled. He was counseled at length regarding close outpatient followup with his primar y care doctor at [facility] for better optimization of these conditions. Cardiology added hydralazine to his hypertensive regimen. We restarted him on a statin drug. He wi ll follow up closely with his primary care for improved diabetes management. DISCHARGE MEDICATIONS: Please see computer's record for full detailed list. NEW MEDICATIONS: 1. Eliquis 5 mg p.o. twice daily for 30 days, perhaps longer if underlying, intermittent atrial fib rillation is detected on Holter monitoring. 2. Hydralazine 10 mg p.o. t.i.d. 3. Lipitor 40 mg p.o. daily. ADDITIONAL DISCHARGE INSTRUCTIONS: 1. Follow up closely with primary care for improved chronic disease management. 2. Follow up with [facility] for outpatient Holter monitoring and evaluation for intermittent at rial fibrillation. Greater than 30 minutes' time was spent arranging this discharge. Patient was seen examined by me yoav black the day of discharge. /[id number]/MODL
--- NOTE | 2016-06-10 08:18 | CPEKG ---
Heart Rate: 88 RR Interval: 682 QRSD Interval: 96 QT Interval: 360 QTC Interval: 436 QRS Tsaile: 22 T Wave Tsaile: 236 EKG Severity - ABNORMAL ECG - EKG Impression: ATRIAL FIBRILLATION, V-RATE 69-129 EKG Impression: ABNORMAL T, CONSIDER ISCHEMIA, LATERAL LEADS Electronically Signed By: Jordan Hill 10-Jun-2016 08:38:28
== END 2016-06-08 14:14 | disposition home or self-care (01) ==
LOC: EDUNIT# → F2W 09:42
PROVIDERS: ADMIT Family Medicine; ATTEND Internal Medicine
PROC: B2151ZZ Fluoroscopy of Left Heart using Low Osmolar Contrast (ICD-10-PCS; principal; 2016-06-07)
PROC: 4A023N7 Measurement of Cardiac Sampling and Pressure, Left Heart, Percutaneous Approach (ICD-10-PCS; principal; 2016-06-07)
PROC: B2111ZZ Fluoroscopy of Multiple Coronary Arteries using Low Osmolar Contrast (ICD-10-PCS; principal; 2016-06-07)
DX: R07.9 Chest pain, unspecified (principal); R55 Syncope and collapse; R09.02 Hypoxemia; I25.10 Atherosclerotic heart disease of native coronary artery without angina pectoris; I10 Essential (primary) hypertension; E78.5 Hyperlipidemia, unspecified; E11.9 Type 2 diabetes mellitus without complications; I48.91 Unspecified atrial fibrillation; Z95.5 Presence of coronary angioplasty implant and graft
CPT/HCPCS: A9500; G0378; J0360; J0583; J1644; J1650; J1815; J2250; J2405; J2785; J3010; Q9967

== ENCOUNTER 2016-07-21 12:41 | Emergency (ER) | payer MEDICAID ==
[2016-07-21 12:49] VITALS: BP 196/90; PULSE 59; RESP 20; TEMP 97.7; O2SAT 95
--- NOTE | 2016-07-21 13:06 | EDPHY ---
H & P Time Seen by Provider: 07/21/16 12:57 HPI/ROS: CHIEF COMPLAINT: Chronic left pretibial wound HISTORY OF PRESENT ILLNESS: 56-year-old male history of diabetes, history of coronary artery disease, history of chronic left pretibial wound which is followed by the wound center, in the ER stating that his wound is draining. Non fetid odor, nontender, no lymphangitic streaking. He has run out of the Mepilex dressings. No fever no chills. No flu-like symptoms. No nausea no vomiting. PHYSICAL EXAM (Prior to examination, patient consented to physical exam, hands were washed and my usual and customary physical exam procedures followed) 1) GENERAL: Well-developed, well-nourished, alert and oriented. Appears to be in no acute distress. 2) HEAD: Normocephalic 3) HEENT: sclera anicteric 4) LUNGS: Breathing comfortably. 5) SKIN: left distal pretibial wound 6) MUSCULOSKELETAL: left distal pretibial wound with no signs of infection. No lymphangitic streaking. No crepitus. Negative Homans no palpable cord . Soft compartments. Dorsiflexion plantar flexion elicits no pain. Smoking Status: Never smoked Constitutional: Initial Vital Signs Temperature (C) 36.5 C 07/21/16 12:46 Heart Rate 59 L 07/21/16 12:46 Respiratory Rate 20 07/21/16 12:46 Blood Pressure 196/90 H 07/21/16 12:46 O2 Sat (%) 95 07/21/16 12:46 O2 Delivery Mode Room Air Allergies/Adverse Reactions: bacitracin zinc [From Neosporin] Allergy (Verified 07/21/16 12:44) cephalexin monohydrate [From Keflex] Allergy (Verified 07/21/16 12:44) clindamycin Allergy (Verified 07/21/16 12:44) codeine [Codeine] Allergy (Verified 07/21/16 12:44) gramicidin D [From Neosporin] Allergy (Verified 07/21/16 12:44) latex [Latex] Allergy (Verified 07/21/16 12:44) mupirocin [From Bactroban] Allergy (Verified 07/21/16 12:44) neomycin sulfate [From Neosporin] Allergy (Verified 07/21/16 12:44) NSAIDS (Non-Steroidal Anti-Inflamma [Nsaids] Allergy (Verified 07/21/16 12:44) peanut Allergy (Verified 07/21/16 12:44) Penicillins Allergy (Verified 07/21/16 12:44) polymyxin B [From Neosporin] Allergy (Verified 07/21/16 12:44) Sulfa (Sulfonamide Antibiotics) Allergy (Verified 07/21/16 12:44) sulfamethoxazole [From Bactrim] Allergy (Verified 07/21/16 12:44) trimethoprim [From Bactrim] Allergy (Verified 07/21/16 12:44) Home Medications: Medication Instructions Recorded Albuterol [Proventil Inhaler HFA 2 puffs IH Q4H PRN 09/20/14 (*)] Insulin Aspart [novoLOG] 5 unit SC TIDMEAL 09/20/14 Lisinopril [Zestril 40 mg (*)] 40 mg PO DAILY 09/20/14 Aspirin EC [Aspirin EC 81 mg (*)] 81 mg PO DAILY 01/21/16 Cetirizine [ZyrTEC 10 mg (*)] 10 mg PO DAILY 01/21/16 Diltiazem HCl [Diltiazem 24Hr Cd] 180 mg PO DAILY 01/21/16 Hydrochlorothiazide [HCTZ (*)] 25 mg PO DAILY 01/21/16 Insulin Detemir [Levemir] 33 unit SQ HS #0 vial 01/24/16 Insulin Aspart [Novolog Flexpen] 0 unit SQ TIDMEAL 06/06/16 Metoprolol Tartrate [Lopressor 50 50 mg PO BID 06/06/16 mg (*)] Atorvastatin Calcium [Lipitor 40 40 mg PO DAILY #30 tab 06/08/16 mg (*)] hydrALAZINE [Apresoline 10 mg (*)] 10 mg PO TID #90 tab 06/08/16 MDM/Departure - [facility] ED Course/Re-evaluation: This patient's left distal pretibial wound appears stable without signs of infection at this time. He requested further Mepilex dressing which have been provided to him. He has been followed by Dr. Blanca Morgan for this wound. At this time I do not think that emergent consultation with Dr. Tinajero or general surgery is indicated however I have recommended follow up on outpatient basis. Doubt necrotizing fasciitis or myositis. He feels comfortable being discharged. Usual customary wound precautions and instructions provided. - Depart Disposition: Home, Routine, Self-Care Clinical Impression: Chronic wound of extremity Condition: Good Instructions: Chronic Wounds (ED) Additional Instructions: Return to the ER if you develop fever, chills, flu-like symptoms, red streaks or any other symptoms that concern you. Referrals: Blanca Morgan MD [Medical Doctor] - 2-3 days, call for appt.
== END 2016-07-21 13:20 | disposition home or self-care (01) ==
DX: L98.8 Other specified disorders of the skin and subcutaneous tissue (principal); Z79.4 Long term (current) use of insulin; Z79.82 Long term (current) use of aspirin; Z91.010 Allergy to peanuts; Z91.040 Latex allergy status

== ENCOUNTER 2016-07-25 11:11 | Emergency (ER) | payer SELFPAY ==
--- NOTE | 2016-07-25 11:44 | EDPHY ---
H & P Stated Complaint: wound on L leg oozing, painful, smells Time Seen by Provider: 07/25/16 11:22 HPI/ROS: CHIEF COMPLAINT: Wound infection HISTORY OF PRESENT ILLNESS: This is a 56-year-old male presenting to the emergency department complaining a left lower extremity wound infection. Patient says this is been an ongoing chronic wound infection, Skin Endy November of 2015. Seen on 07/21/2016 for same problem, at that time the wound was cleaned with a new dressing placed. Patient states he does have an appointment with wound care clinic Dr. Dill tomorrow, but was concerned of increased infection today. No fever no chills REVIEW OF SYSTEMS: Constitutional: No fever no chills ENT: No sore throat Respiratory: No shortness of breath Cardiac: No chest pain Musculoskeletal: No back pain Skin: No rash, wound ulcer to left lower extremity with drainage Neurological: No headache or dizziness Source: Patient - Personal History Current Tetanus/Diphtheria Vaccine: Yes Current Tetanus Diphtheria and Acellular Pertussis (TDAP): Yes Tetanus Vaccine Date: 2011 - Medical/Surgical History Hx Asthma: Yes Hx Chronic Respiratory Disease: Yes Hx Diabetes: Yes Hx Cardiac Disease: Yes Hx Renal Disease: No Hx Cirrhosis: No Hx Alcoholism: No Hx HIV/AIDS: No Hx Splenectomy or Spleen Trauma: No Other PMH: MEd hx-Diabetes,cholesterol,HTN,[place]. Surg-umbilical hernia,dental, tonsils,3-stents - Social History Smoking Status: Never smoked - Physical Exam Exam: General Appearance: Alert and no distress. AAO x3 Eyes: Pupils equal and round no injection. Respiratory: Chest is nontender, lungs are clear to auscultation. Gastrointestinal: Abdomen is soft and nontender, no masses Musculoskeletal: Neck is supple and nontender. Extremities: full range of motion. Left lower extremity diabetic ulcer 4 cm x 4 cm with drainage positive CMS intact. Negative left calf pain on dorsiflexion Skin: No rashes. left lower extremity ulcer 4 cm x 4 cm with drainage positive CMS intact Constitutional: Initial Vital Signs Temperature (C) 36.6 C 07/25/16 11:15 Heart Rate 67 07/25/16 11:15 Respiratory Rate 17 07/25/16 11:15 Blood Pressure 185/95 H 07/25/16 11:15 O2 Sat (%) 98 07/25/16 11:15 O2 Delivery Mode Room Air Allergies/Adverse Reactions: bacitracin zinc [From Neosporin] Allergy (Verified 07/21/16 12:44) cephalexin monohydrate [From Keflex] Allergy (Verified 07/21/16 12:44) clindamycin Allergy (Verified 07/21/16 12:44) codeine [Codeine] Allergy (Verified 07/21/16 12:44) gramicidin D [From Neosporin] Allergy (Verified 07/21/16 12:44) latex [Latex] Allergy (Verified 07/21/16 12:44) mupirocin [From Bactroban] Allergy (Verified 07/21/16 12:44) neomycin sulfate [From Neosporin] Allergy (Verified 07/21/16 12:44) NSAIDS (Non-Steroidal Anti-Inflamma [Nsaids] Allergy (Verified 07/21/16 12:44) peanut Allergy (Verified 07/21/16 12:44) Penicillins Allergy (Verified 07/21/16 12:44) polymyxin B [From Neosporin] Allergy (Verified 07/21/16 12:44) Sulfa (Sulfonamide Antibiotics) Allergy (Verified 07/21/16 12:44) sulfamethoxazole [From Bactrim] Allergy (Verified 07/21/16 12:44) trimethoprim [From Bactrim] Allergy (Verified 07/21/16 12:44) Home Medications: Medication Instructions Recorded Albuterol [Proventil Inhaler HFA 2 puffs IH Q4H PRN 09/20/14 (*)] Insulin Aspart [novoLOG] 5 unit SC TIDMEAL 09/20/14 Lisinopril [Zestril 40 mg (*)] 40 mg PO DAILY 09/20/14 Aspirin EC [Aspirin EC 81 mg (*)] 81 mg PO DAILY 01/21/16 Cetirizine [ZyrTEC 10 mg (*)] 10 mg PO DAILY 01/21/16 Diltiazem HCl [Diltiazem 24Hr Cd] 180 mg PO DAILY 01/21/16 Hydrochlorothiazide [HCTZ (*)] 25 mg PO DAILY 01/21/16 Insulin Detemir [Levemir] 33 unit SQ HS #0 vial 01/24/16 Insulin Aspart [Novolog Flexpen] 0 unit SQ TIDMEAL 06/06/16 Metoprolol Tartrate [Lopressor 50 50 mg PO BID 06/06/16 mg (*)] Atorvastatin Calcium [Lipitor 40 40 mg PO DAILY #30 tab 06/08/16 mg (*)] hydrALAZINE [Apresoline 10 mg (*)] 10 mg PO TID #90 tab 06/08/16 Medical Decision Making ED Course/Re-evaluation: Discussed plan of care: CBC, Chem 7, wound irrigation, new wound dressing. Discharge home---> stable, discussed discharge instructions following up with Dr. Morgan office tomorrow per your scheduled appointment Differential Diagnosis: Differential diagnosis considered but not limited to necrotizing fasciitis, cellulitis and DVT - Data Points Laboratory Results: Laboratory Results 07/25/16 12:00 07/25/16 12:00 07/25/16 07/25/16 12:00 12:00 WBC 7.36 10^3/uL 10^3/uL (3.80-9.50) RBC 5.77 10^6/uL 10^6/uL (4.40-6.38) Hgb 15.9 g/dL g/dL (13.7-17.5) Hct 47.5 % % (40.0-51.0) MCV 82.3 fL fL (81.5-99.8) MCH 27.6 pg L pg (27.9-34.1) MCHC 33.5 g/dL g/dL (32.4-36.7) RDW 14.5 % % (11.5-15.2) Plt Count 201 10^3/uL 10^3/uL (150-400) MPV 9.5 fL fL (8.7-11.7) Neut % (Auto) 69.8 % % (39.3-74.2) Lymph % (Auto) 18.6 % % (15.0-45.0) [place] % (Auto) 7.5 % % (4.5-13.0) Eos % (Auto) 3.4 % % (0.6-7.6) Baso % (Auto) 0.4 % % (0.3-1.7) Nucleat RBC Rel Count 0.0 % % (0.0-0.2) Absolute Neuts (auto) 5.14 10^3/uL 10^3/uL (1.70-6.50) Absolute Lymphs (auto) 1.37 10^3/uL 10^3/uL (1.00-3.00) Absolute Monos (auto) 0.55 10^3/uL 10^3/uL (0.30-0.80) Absolute Eos (auto) 0.25 10^3/uL 10^3/uL (0.03-0.40) Absolute Basos (auto) 0.03 10^3/uL 10^3/uL (0.02-0.10) Absolute Nucleated RBC 0.00 10^3/uL 10^3/uL (0-0.01) Immature Gran % 0.3 % % (0.0-1.1) Immature Gran # 0.02 10^3/uL 10^3/uL (0.00-0.10) Sodium 137 mEq/L mEq/L (134-144) Potassium 4.4 mEq/L mEq/L (3.5-5.2) Chloride 103 mEq/L mEq/L (97-110) Carbon Dioxide 25 mEq/l mEq/l (22-31) Anion Gap 9 mEq/L mEq/L (8-16) BUN 15 mg/dL mg/dL (7-23) Creatinine 0.8 mg/dL mg/dL (0.7-1.3) Estimated GFR > 60 Glucose 297 mg/dL H mg/dL (70-100) Calcium 9.2 mg/dL mg/dL (8.5-10.4) Departure - Departure Disposition: Home, Routine, Self-Care Clinical Impression: Chronic ulcer of leg Qualifiers: Laterality: left Non-pressure ulcer stage: limited to breakdown of skin Qualified Code(s): L97.921 - Non-pressure chronic ulcer of unspecified part of left lower leg limited to breakdown of skin Condition: Good Instructions: Wound Healing and Your Diet (ED) Additional Instructions: 1. Follow up with Dr. Dill tomorrow at 4 o'clock for your scheduled appointment 2. The monitor your sugar at home take your insulin when he got home 3. Wound was cleaned and a new dressing placed today Referrals: Kathy Faustin, PAC [Primary Care Provider] - As per Instructions
[2016-07-25 12:07] LABS: % IMMATURE GRANULYOCYTES 0.3 % (0.0-1.1); ABSOLUTE IMMATURE GRANULOCYTES 0.02 10^3/uL (0.00-0.10); ADD DIFF? NO; ADD MORPH? NO; ADD SCAN? NO; ATYPICAL LYMPHOCYTE FLAG 10 (0-99); FRAGMENT RBC FLAG 0 (0-99); HEMATOCRIT 47.5 % (40.0-51.0); HEMOGLOBIN 15.9 g/dL (13.7-17.5); LEFT SHIFT FLG 0 (0-99); LIPEMIA HEMOLYSIS FLAG 80 (0-99); MEAN CELL HEMOGLOBIN 27.6 pg (27.9-34.1); MEAN CELL HEMOGLOBIN CONCENTR. 33.5 g/dL (32.4-36.7); MEAN CELL VOLUME 82.3 fL (81.5-99.8); MEAN PLATELET VOLUME 9.5 fL (8.7-11.7); PLATELET CLUMPS FLAG 0 (0-99); PLATELET COUNT 201 10^3/uL (150-400); RED BLOOD CELL COUNT 5.77 10^6/uL (4.40-6.38); RED CELL DISTRIBUTION WIDTH 14.5 % (11.5-15.2)
[2016-07-25 12:30] LABS: ANION GAP 9 mEq/L (8-16); CALCIUM 9.2 mg/dL (8.5-10.4); CARBON DIOXIDE 25 mEq/l (22-31); CHLORIDE 103 mEq/L (97-110); CREATININE 0.8 mg/dL (0.7-1.3); GLOMERULAR FILTRATION RATE > 60; GLUCOSE 297 mg/dL (70-100); POTASSIUM 4.4 mEq/L (3.5-5.2); SODIUM 137 mEq/L (134-144)
[2016-07-25 12:40] VITALS: BP 157/78; PULSE 50; RESP 16; TEMP 98.1; O2SAT 93
== END 2016-07-25 13:04 | disposition home or self-care (01) ==
DX: L97.921 Non-pressure chronic ulcer of unspecified part of left lower leg limited to breakdown of skin (principal); J45.909 Unspecified asthma, uncomplicated; I10 Essential (primary) hypertension; I25.2 Old myocardial infarction; Z79.4 Long term (current) use of insulin; Z91.040 Latex allergy status; Z91.010 Allergy to peanuts; Z79.82 Long term (current) use of aspirin

== ENCOUNTER 2016-11-11 12:10 | Emergency (ER) | payer MEDICAID ==
[2016-11-11 12:17] VITALS: RESP 18; O2SAT 94
[2016-11-11] MEDS ORDERED: MUPIROCIN 2% 22 GM OINT TP ONE (12:43)
--- NOTE | 2016-11-11 12:43 | EDPHY ---
H & P Stated Complaint: continued problems with wound l ariza/pt diabetic Time Seen by Provider: 11/11/16 12:33 HPI/ROS: CHIEF COMPLAINT: Wound HISTORY OF PRESENT ILLNESS: Patient is a 56-year-old man with diabetes with chronic leg wounds and edema and venous stasis. He has a wound on his left ariza that has been healing chronically. On Friday he sustained a small abrasion just above the bandage. It had been doing well over the weekend but today began mild bleeding. No erythema. No increased swelling or edema. No fevers. No difficulty walking. REVIEW OF SYSTEMS: Constitutional: denies: chills, fever, recent illness, recent injury EENTM: denies: blurred vision, double vision, nose congestion Respiratory: denies: cough, shortness of breath Cardiac: denies: chest pain, irregular heart rate, lightheadedness, palpitations Gastrointestinal/Abdominal: denies: abdominal pain, diarrhea, nausea, vomiting, blood streaked stools Genitourinary: denies: dysuria, frequency, hematuria, pain Musculoskeletal: denies: joint pain, muscle pain Skin: See HPI Neurological: denies: headache, numbness, paresthesia, tingling, dizziness, weakness Hematologic/Lymphatic: denies: blood clots, easy bleeding, easy bruising Immunologic/allergic: denies: HIV/AIDS, transplant EXAM: GENERAL: Well-appearing, well-nourished and in no acute distress. HEAD: Atraumatic, normocephalic. EYES: Pupils equal round and reactive to light, extraocular movements intact, sclera anicteric, conjunctiva are normal. ENT: TMs normal, nares patent, oropharynx clear without exudates. Moist mucous membranes. NECK: Normal range of motion, supple without lymphadenopathy or JVD. LUNGS: Breath sounds clear to auscultation bilaterally and equal. No wheezes rales or rhonchi. HEART: Regular rate and rhythm without murmurs, rubs or gallops. ABDOMEN: Soft, nontender, normoactive bowel sounds. No guarding, no rebound. No masses appreciated. BACK: No CVA tenderness, no spinal tenderness, step-offs or deformities EXTREMITIES: Bilateral edema right greater than left, Normal range of motion. No clubbing or cyanosis. NEUROLOGICAL: Cranial nerves II through XII grossly intact. Normal speech, normal gait. 5/5 strength, normal movement in all extremities, normal sensation PSYCH: Normal mood, normal affect. SKIN: 1 x 1 cm abrasion/avulsion to left ariza. No significant erythema or warmth or drainage. Bleeding controlled. Source: Patient Exam Limitations: No limitations - Personal History Current Tetanus/Diphtheria Vaccine: Yes Tetanus Vaccine Date: 2011 - Medical/Surgical History Hx Asthma: Yes Hx Chronic Respiratory Disease: Yes Hx Diabetes: Yes Hx Cardiac Disease: Yes Hx Renal Disease: No Hx Cirrhosis: No Hx Alcoholism: No Hx HIV/AIDS: No Hx Splenectomy or Spleen Trauma: No Other PMH: MEd hx-Diabetes,cholesterol,HTN,[place]. Surg-umbilical hernia,dental, tonsils,3-stents - Family History Significant Family History: No pertinent family hx - Social History Smoking Status: Never smoked Alcohol Use: Sober Drug Use: None Constitutional: Initial Vital Signs Temperature (C) 36.6 C 11/11/16 12:14 Heart Rate 64 11/11/16 12:14 Respiratory Rate 18 11/11/16 12:14 Blood Pressure 221/99 H 11/11/16 12:14 O2 Sat (%) 94 11/11/16 12:14 O2 Delivery Mode Room Air Allergies/Adverse Reactions: bacitracin zinc [From Neosporin] Allergy (Verified 11/11/16 12:12) cephalexin monohydrate [From Keflex] Allergy (Verified 11/11/16 12:12) clindamycin Allergy (Verified 11/11/16 12:12) codeine [Codeine] Allergy (Verified 11/11/16 12:12) gramicidin D [From Neosporin] Allergy (Verified 11/11/16 12:12) latex [Latex] Allergy (Verified 11/11/16 12:12) mupirocin [From Bactroban] Allergy (Verified 11/11/16 12:12) neomycin sulfate [From Neosporin] Allergy (Verified 11/11/16 12:12) NSAIDS (Non-Steroidal Anti-Inflamma [Nsaids] Allergy (Verified 11/11/16 12:12) peanut Allergy (Verified 11/11/16 12:12) Penicillins Allergy (Verified 11/11/16 12:12) polymyxin B [From Neosporin] Allergy (Verified 11/11/16 12:12) Sulfa (Sulfonamide Antibiotics) Allergy (Verified 11/11/16 12:12) sulfamethoxazole [From Bactrim] Allergy (Verified 11/11/16 12:12) trimethoprim [From Bactrim] Allergy (Verified 11/11/16 12:12) Home Medications: Medication Instructions Recorded Albuterol [Proventil Inhaler HFA 2 puffs IH Q4H PRN 09/20/14 (*)] Insulin Aspart [novoLOG] 5 unit SC TIDMEAL 09/20/14 Lisinopril [Zestril 40 mg (*)] 40 mg PO DAILY 09/20/14 Aspirin EC [Aspirin EC 81 mg (*)] 81 mg PO DAILY 01/21/16 Cetirizine [ZyrTEC 10 mg (*)] 10 mg PO DAILY 01/21/16 Diltiazem HCl [Diltiazem 24Hr Cd] 180 mg PO DAILY 01/21/16 Hydrochlorothiazide [HCTZ (*)] 25 mg PO DAILY 01/21/16 Insulin Detemir [Levemir] 33 unit SQ HS #0 vial 01/24/16 Insulin Aspart [Novolog Flexpen] 0 unit SQ TIDMEAL 06/06/16 Metoprolol Tartrate [Lopressor 50 50 mg PO BID 06/06/16 mg (*)] Atorvastatin Calcium [Lipitor 40 40 mg PO DAILY #30 tab 06/08/16 mg (*)] hydrALAZINE [Apresoline 10 mg (*)] 10 mg PO TID #90 tab 06/08/16 Medical Decision Making ED Course/Re-evaluation: The patient has a very minor wound that does not appear infected however he is obviously prone to chronic infections. After much discussion we agreed to start him on a topical antibiotic cream and dress his wounds carefully and have him follow up with Dr. Mrogan's clinic this week. The patient agrees with this plan. He declines any further workup or testing at this time. Differential Diagnosis: Partial list of the Differential diagnosis considered include but were not limited to; abrasion, laceration, venous stasis ulcer and although unlikely based on the history and physical exam, I also considered abscess, cellulitis, DVT. I discussed these differential diagnoses and the plan with the patient as well as the usual and expected course. The patient understands that the diagnosis is provisional and that in medicine we are not always correct and that further workup is often warranted. Usual and customary warnings were given. All of the patient's questions were answered. The patient was instructed to return to the emergency department should the symptoms at all worsen or return, otherwise to followup with the physician as we discussed. - Data Points Medications Given: Discontinued Medications Mupirocin (Bactroban 2%) 1 jo TP EDNOW ONE Stop: 11/11/16 12:44 Last Admin: 11/11/16 13:20 Dose: Not Given Povidone Iodine (Betadine) 1 jo TP ONCE ONE Stop: 11/11/16 13:19 Last Admin: 11/11/16 13:42 Dose: 1 jo Departure - Departure Disposition: Home, Routine, Self-Care Clinical Impression: Leg wound, left Qualifiers: Encounter type: initial encounter Qualified Code(s): S81.802A - Unspecified open wound, left lower leg, initial encounter Condition: Fair Instructions: Chronic Wounds (ED) Additional Instructions: Continue to dressed the wound with antibiotic ointment and bandages as discussed and follow up with Dr. Blood wound care clinic this week. Referrals: Kathy Faustin PAC [Primary Care Provider] - As per Instructions Blanca Morgan MD [Medical Doctor] - As per Instructions
[2016-11-11] MEDS ORDERED: POVIDONE-IODINE 30 GM OINTTUBE TP ONE (13:18)
[2016-11-11 13:37] VITALS: BP 196/103; PULSE 61; TEMP 98.4
== END 2016-11-11 13:45 | disposition home or self-care (01) ==
DX: S81.802A Unspecified open wound, left lower leg, initial encounter (principal); E11.9 Type 2 diabetes mellitus without complications; I10 Essential (primary) hypertension; I25.2 Old myocardial infarction; J45.909 Unspecified asthma, uncomplicated; Z91.040 Latex allergy status; Z91.010 Allergy to peanuts; Z79.82 Long term (current) use of aspirin; Z79.4 Long term (current) use of insulin; X58.XXXA Exposure to other specified factors, initial encounter

== ENCOUNTER 2016-12-10 20:59 | Emergency (ER) | payer MEDICAID ==
--- NOTE | 2016-12-10 21:52 | EDPHY ---
H & P Stated Complaint: RLE edema, LLE wound Time Seen by Provider: 12/10/16 21:43 HPI/ROS: CHIEF COMPLAINT: RIGHT LEG SWELLING HISTORY OF PRESENT ILLNESS: The patient is a 56-year-old man who comes to the emergency department complaining about swelling in his right leg. He has a history of diabetes and venous stasis ulcers and chronic edema. He is followed in the wound care clinic by Dr. Blanca Morgan. He was seen at the wound care clinic yesterday and they noticed that his right leg was more swollen than usual. He had not been wearing a compression stocking on it like he is supposed to on that side. They told him to resume wearing the stockings and that if it did not improved to come to the emergency department for an ultrasound. It was also noted that his glucose was high today. He states that he ate just prior to arrival and already took his evening dose of Levemir. He does not wish to have any further insulin or treatment for this. REVIEW OF SYSTEMS: CONSTITUTIONAL: DENIES: CHILLS, FEVER, RECENT ILLNESS, RECENT INJURY EENTM: DENIES: BLURRED VISION, DOUBLE VISION, NOSE CONGESTION RESPIRATORY: DENIES: COUGH, SHORTNESS OF BREATH CARDIAC: DENIES: CHEST PAIN, IRREGULAR HEART RATE, LIGHTHEADEDNESS, PALPITATIONS GASTROINTESTINAL/ABDOMINAL: DENIES: ABDOMINAL PAIN, DIARRHEA, NAUSEA, VOMITING, BLOOD STREAKED STOOLS GENITOURINARY: DENIES: DYSURIA, FREQUENCY, HEMATURIA, PAIN MUSCULOSKELETAL: DENIES: JOINT PAIN, MUSCLE PAIN SKIN: DENIES: LESIONS, RASH, JAUNDICE, BRUISING NEUROLOGICAL: DENIES: HEADACHE, NUMBNESS, PARESTHESIA, TINGLING, DIZZINESS, WEAKNESS HEMATOLOGIC/LYMPHATIC: DENIES: BLOOD CLOTS, EASY BLEEDING, EASY BRUISING IMMUNOLOGIC/ALLERGIC: DENIES: HIV/AIDS, TRANSPLANT EXAM: GENERAL: WELL-APPEARING, WELL-NOURISHED AND IN NO ACUTE DISTRESS. HEAD: ATRAUMATIC, NORMOCEPHALIC. EYES: PUPILS EQUAL ROUND AND REACTIVE TO LIGHT, EXTRAOCULAR MOVEMENTS INTACT, SCLERA ANICTERIC, CONJUNCTIVA ARE NORMAL. ENT: TMS NORMAL, NARES PATENT, OROPHARYNX CLEAR WITHOUT EXUDATES. MOIST MUCOUS MEMBRANES. NECK: NORMAL RANGE OF MOTION, SUPPLE WITHOUT LYMPHADENOPATHY OR JVD. LUNGS: BREATH SOUNDS CLEAR TO AUSCULTATION BILATERALLY AND EQUAL. NO WHEEZES RALES OR RHONCHI. HEART: REGULAR RATE AND RHYTHM WITHOUT MURMURS, RUBS OR GALLOPS. ABDOMEN: SOFT, NONTENDER, NORMOACTIVE BOWEL SOUNDS. NO GUARDING, NO REBOUND. NO MASSES APPRECIATED. BACK: NO CVA TENDERNESS, NO SPINAL TENDERNESS, STEP-OFFS OR DEFORMITIES EXTREMITIES: The right leg with 2+ pitting edema. Normal pulses and sensation. Left ariza with minor abrasion, clean and dressed. NEUROLOGICAL: CRANIAL NERVES II THROUGH XII GROSSLY INTACT. NORMAL SPEECH, NORMAL GAIT. 5/5 STRENGTH, NORMAL MOVEMENT IN ALL EXTREMITIES, NORMAL SENSATION PSYCH: NORMAL MOOD, NORMAL AFFECT. SKIN: WARM, DRY, NORMAL TURGOR, NO VISIBLE RASHES OR LESIONS. Source: Patient Exam Limitations: No limitations - Personal History Current Tetanus/Diphtheria Vaccine: Yes Tetanus Vaccine Date: 2011 - Medical/Surgical History Hx Asthma: Yes Hx Chronic Respiratory Disease: Yes Hx Diabetes: Yes Hx Cardiac Disease: Yes Hx Renal Disease: No Hx Cirrhosis: No Hx Alcoholism: No Hx HIV/AIDS: No Hx Splenectomy or Spleen Trauma: No Other PMH: MEd hx-Diabetes,cholesterol,HTN,[place]. Surg-umbilical hernia,dental, tonsils,3-stents - Family History Significant Family History: No pertinent family hx - Social History Smoking Status: Never smoked Alcohol Use: Sober Drug Use: None Constitutional: Initial Vital Signs Temperature (C) 36.9 C 12/10/16 21:00 Heart Rate 69 12/10/16 21:00 Respiratory Rate 16 12/10/16 21:00 Blood Pressure 210/96 H 12/10/16 21:00 O2 Sat (%) 94 12/10/16 21:00 O2 Delivery Mode Room Air Allergies/Adverse Reactions: bacitracin zinc [From Neosporin] Allergy (Verified 11/11/16 12:12) cephalexin monohydrate [From Keflex] Allergy (Verified 11/11/16 12:12) clindamycin Allergy (Verified 11/11/16 12:12) codeine [Codeine] Allergy (Verified 11/11/16 12:12) gramicidin D [From Neosporin] Allergy (Verified 11/11/16 12:12) latex [Latex] Allergy (Verified 11/11/16 12:12) mupirocin [From Bactroban] Allergy (Verified 11/11/16 12:12) neomycin sulfate [From Neosporin] Allergy (Verified 11/11/16 12:12) NSAIDS (Non-Steroidal Anti-Inflamma [Nsaids] Allergy (Verified 11/11/16 12:12) peanut Allergy (Verified 11/11/16 12:12) Penicillins Allergy (Verified 11/11/16 12:12) polymyxin B [From Neosporin] Allergy (Verified 11/11/16 12:12) Sulfa (Sulfonamide Antibiotics) Allergy (Verified 11/11/16 12:12) sulfamethoxazole [From Bactrim] Allergy (Verified 11/11/16 12:12) trimethoprim [From Bactrim] Allergy (Verified 11/11/16 12:12) Home Medications: Medication Instructions Recorded Albuterol [Proventil Inhaler HFA 2 puffs IH Q4H PRN 09/20/14 (*)] Insulin Aspart [novoLOG] 5 unit SC TIDMEAL 09/20/14 Lisinopril [Zestril 40 mg (*)] 40 mg PO DAILY 09/20/14 Aspirin EC [Aspirin EC 81 mg (*)] 81 mg PO DAILY 01/21/16 Cetirizine [ZyrTEC 10 mg (*)] 10 mg PO DAILY 01/21/16 Diltiazem HCl [Diltiazem 24Hr Cd] 180 mg PO DAILY 01/21/16 Hydrochlorothiazide [HCTZ (*)] 25 mg PO DAILY 01/21/16 Insulin Detemir [Levemir] 33 unit SQ HS #0 vial 01/24/16 Insulin Aspart [Novolog Flexpen] 0 unit SQ TIDMEAL 06/06/16 Metoprolol Tartrate [Lopressor 50 50 mg PO BID 06/06/16 mg (*)] Atorvastatin Calcium [Lipitor 40 40 mg PO DAILY #30 tab 06/08/16 mg (*)] hydrALAZINE [Apresoline 10 mg (*)] 10 mg PO TID #90 tab 06/08/16 Medical Decision Making - Diagnostics Imaging Results: Imaging Impressions Extremity Venous Study 12/10/16 21:52 Impression: No evidence for deep venous fibrosis or superficial thrombophlebitis in the right leg. Findings and recommendations discussed with Richmond Horner M.D., at 2047 hours, on December 10, 2016. Final report concurs with initial preliminary interpretation. Imaging: Discussed imaging studies w/ order desk caller Radiologist ED Course/Re-evaluation: We discussed the ultrasound results. The patient is reassured. He declines further workup or testing at this time. Differential Diagnosis: Partial list of the Differential diagnosis considered include but were not limited to; DVT, edema, chronic wound, chronic stasis and although unlikely based on the history and physical exam, I also considered infection, vascular injury ischemia. I discussed these differential diagnoses and the plan with the patient as well as the usual and expected course. The patient understands that the diagnosis is provisional and that in medicine we are not always correct and that further workup is often warranted. Usual and customary warnings were given. All of the patient's questions were answered. The patient was instructed to return to the emergency department should the symptoms at all worsen or return, otherwise to followup with the physician as we discussed. - Data Points Laboratory Results: 12/10/16 21:20 POC Glucose > 350 mg/dL H mg/dL (70-100) Point of Care Test Results: 12/10/16 21:20 POC Glucose > 350 H Departure - Departure Disposition: Home, Routine, Self-Care Clinical Impression: Edema of right lower leg due to venous stasis Condition: Fair Instructions: Leg Edema (ED) Additional Instructions: Continue wearing leg compression stockings as advised by wound care clinic. Referrals: Kathy Faustin PAC [Primary Care Provider] - As per Instructions Blanca Morgan MD [Medical Doctor] - As per Instructions
[2016-12-10 22:37] VITALS: BP 190/98; PULSE 70; RESP 15; O2SAT 93
[2016-12-10 23:17] VITALS: TEMP 98.1
== END 2016-12-10 23:17 | disposition home or self-care (01) ==
DX: I87.2 Venous insufficiency (chronic) (peripheral) (principal); R60.0 Localized edema; J45.909 Unspecified asthma, uncomplicated; E11.9 Type 2 diabetes mellitus without complications; I10 Essential (primary) hypertension; I25.2 Old myocardial infarction; Z91.040 Latex allergy status; Z91.010 Allergy to peanuts; Z79.82 Long term (current) use of aspirin; Z79.4 Long term (current) use of insulin

== ENCOUNTER 2016-12-18 22:45 | Observation (INO) | payer MEDICAID ==
--- NOTE | 2016-12-19 00:37 | EDPHY ---
H & P Stated Complaint: Rash bilat legs. Time Seen by Provider: 12/18/16 23:11 HPI/ROS: HPI CHIEF COMPLAINT: Rash, bilateral legs HISTORY OF PRESENT ILLNESS: Patient 56-year-old male, diabetic, neuropathy, chronic peripheral edema and chronic left leg wound he presents to the emergency room with bilateral lower leg swelling and rash. Patient does report over the past 48 hours he thinks he has had a fever. Denies any chest pain or shortness of breath. He states his legs are more swollen than normal. But what concerned him the most are this red rash on his legs. He also distally tells me his left leg wound is about the same it is draining yellow drainage, however the rash is new. On exam here it is noted he is non blanchable petechiae up his legs. Bilaterally. He additonally reports to me that his legs are more swollen than normal. Past Medical History: History coronary disease with stents, diabetes, hypertension, chronic peripheral edema, chronic left leg wound Past Surgical History: Denies recent surgery however has had a skin graft left leg Social History: Denies daily use drugs alcohol tobacco products. Family History: Noncontributory. ROS REVIEW OF SYSTEMS: A comprehensive 10 point review of systems is otherwise negative aside from elements mentioned in the history of present illness. Exam Constitutional appears well nontoxic, triage nursing summary reviewed, vital signs reviewed, awake/alert. Vital signs reviewed is hypertensive Eyes normal conjunctivae and sclera, EOMI, PERRLA. HENT normal inspection, atraumatic, moist mucus membranes, no epistaxis, neck supple/ no meningismus, no raccoon eyes. Respiratory clear to auscultation bilaterally, normal breath sounds, no respiratory distress, no wheezing. Cardiovascular rate normal, regular rhythm, no murmur, no edema, distal pulses normal. Gastrointestinal soft, non-tender, no rebound, no guarding, normal bowel sounds, no distension, no pulsatile mass. Genitourinary no CVA tenderness. Musculoskeletal no midline vertebral tenderness, full range of motion, no calf swelling, no tenderness of extremities, no meningismus, good pulses, neurovascularly intact. Skin bilateral lower extremity has pitting edema additionally left lower extremity in the anterior tibia has a leg wound chronic drainage yellow drainage , additionally this petechiae present non blanchable throughout both legs. Neurologic awake, alert and oriented x 3, AAOx3, moves all 4 extremities equally, motor intact, sensory intact, CN II-XII intact, normal cerebellar, normal vision, normal speech. Psychiatric normal mood/affect. Heme/Lymph/Immune no lymphadenopathy. Differential Diagnosis: Includes but is not limited to in a particular order, worsening peripheral edema, hypertensive urgency, renal failure, DVTs, cellulitis with petechiae, bacteremia Medical Decision Making: Plan for this patient IV establishment with blood draw , blood cultures, ultrasound bilateral lower extremities. Patient may need to be admitted given this petechial rash on his lower extremities. Re-evaluation: 0218AM: Patient has bilateral lower extremity edema with redness in yellow drainage from the left anterior tibia, additionally petechiae that is new. Ultrasound has been reviewed shows no DVTs. He will be started on IV Vanco and be admitted to the hospital. Reason for admission bilateral lower extremity edema, cellulitis, petechiae. 0226: Patient resting comfortably. Hemodynamically stable blood pressure improved. IV vancomycin ordered. Blood cultures ordered. Patient be admitted for bilateral lower extremity swelling, redness, cellulitis and petechiae. No evidence of severe sepsis or septic shock in the emergency room. Dr. Jason to admit. Source: Patient - Personal History Tetanus Vaccine Date: 2011 - Medical/Surgical History Hx Asthma: Yes Hx Chronic Respiratory Disease: Yes Hx Diabetes: Yes Hx Cardiac Disease: Yes Hx Renal Disease: No Hx Cirrhosis: No Hx Alcoholism: No Hx HIV/AIDS: No Hx Splenectomy or Spleen Trauma: No Other PMH: MEd hx-Diabetes,cholesterol,HTN,ND. Surg-umbilical hernia,dental, tonsils,3-stents - Social History Smoking Status: Never smoked Constitutional: Initial Vital Signs Temperature (C) 36.8 C 12/18/16 22:47 Heart Rate 70 12/18/16 22:47 Respiratory Rate 18 12/18/16 22:47 Blood Pressure 215/103 H 12/18/16 22:47 O2 Sat (%) 93 12/18/16 22:47 O2 Delivery Mode Room Air Allergies/Adverse Reactions: bacitracin zinc [From Neosporin] Allergy (Verified 11/11/16 12:12) cephalexin monohydrate [From Keflex] Allergy (Verified 11/11/16 12:12) clindamycin Allergy (Verified 11/11/16 12:12) codeine [Codeine] Allergy (Verified 11/11/16 12:12) gramicidin D [From Neosporin] Allergy (Verified 11/11/16 12:12) latex [Latex] Allergy (Verified 11/11/16 12:12) mupirocin [From Bactroban] Allergy (Verified 11/11/16 12:12) neomycin sulfate [From Neosporin] Allergy (Verified 11/11/16 12:12) NSAIDS (Non-Steroidal Anti-Inflamma [Nsaids] Allergy (Verified 11/11/16 12:12) peanut Allergy (Verified 11/11/16 12:12) Penicillins Allergy (Verified 11/11/16 12:12) polymyxin B [From Neosporin] Allergy (Verified 11/11/16 12:12) Sulfa (Sulfonamide Antibiotics) Allergy (Verified 11/11/16 12:12) sulfamethoxazole [From Bactrim] Allergy (Verified 11/11/16 12:12) trimethoprim [From Bactrim] Allergy (Verified 11/11/16 12:12) Home Medications: Medication Instructions Recorded Albuterol [Proventil Inhaler HFA 2 puffs IH Q4H PRN 09/20/14 (*)] Insulin Aspart [novoLOG] 5 unit SC TIDMEAL 09/20/14 Lisinopril [Zestril 40 mg (*)] 40 mg PO DAILY 09/20/14 Aspirin EC [Aspirin EC 81 mg (*)] 81 mg PO DAILY 01/21/16 Cetirizine [ZyrTEC 10 mg (*)] 10 mg PO DAILY 01/21/16 Diltiazem HCl [Diltiazem 24Hr Cd] 180 mg PO DAILY 01/21/16 Insulin Detemir [Levemir] 33 unit SQ HS #0 vial 01/24/16 Insulin Aspart [Novolog Flexpen] 0 unit SQ TIDMEAL 06/06/16 Metoprolol Tartrate [Lopressor 50 50 mg PO BID 06/06/16 mg (*)] hydrALAZINE [Apresoline 10 mg (*)] 10 mg PO TID #90 tab 06/08/16 Medical Decision Making - Data Points Laboratory Results: Laboratory Results 12/19/16 01:05 12/19/16 01:05 12/19/16 12/19/16 12/19/16 01:05 01:05 01:05 WBC 7.65 10^3/uL 10^3/uL (3.80-9.50) RBC 5.61 10^6/uL 10^6/uL (4.40-6.38) Hgb 15.9 g/dL g/dL (13.7-17.5) Hct 46.8 % % (40.0-51.0) MCV 83.4 fL fL (81.5-99.8) MCH 28.3 pg pg (27.9-34.1) MCHC 34.0 g/dL g/dL (32.4-36.7) RDW 13.5 % % (11.5-15.2) Plt Count 220 10^3/uL 10^3/uL (150-400) MPV 9.1 fL fL (8.7-11.7) Neut % (Auto) 72.1 % % (39.3-74.2) Lymph % (Auto) 15.6 % % (15.0-45.0) [place] % (Auto) 7.2 % % (4.5-13.0) Eos % (Auto) 4.3 % % (0.6-7.6) Baso % (Auto) 0.5 % % (0.3-1.7) Nucleat RBC Rel Count 0.0 % % (0.0-0.2) Absolute Neuts (auto) 5.52 10^3/uL 10^3/uL (1.70-6.50) Absolute Lymphs (auto) 1.19 10^3/uL 10^3/uL (1.00-3.00) Absolute Monos (auto) 0.55 10^3/uL 10^3/uL (0.30-0.80) Absolute Eos (auto) 0.33 10^3/uL 10^3/uL (0.03-0.40) Absolute Basos (auto) 0.04 10^3/uL 10^3/uL (0.02-0.10) Absolute Nucleated RBC 0.00 10^3/uL 10^3/uL (0-0.01) Immature Gran % 0.3 % % (0.0-1.1) Immature Gran # 0.02 10^3/uL 10^3/uL (0.00-0.10) PT 13.4 SEC SEC (12.0-15.0) INR 1.03 (0.83-1.16) APTT 25.5 SEC SEC (23.0-38.0) Sodium 136 mEq/L mEq/L (134-144) Potassium 4.0 mEq/L mEq/L (3.5-5.2) Chloride 100 mEq/L mEq/L (97-110) Carbon Dioxide 25 mEq/l mEq/l (22-31) Anion Gap 11 mEq/L mEq/L (8-16) BUN 16 mg/dL mg/dL (7-23) Creatinine 1.0 mg/dL mg/dL (0.7-1.3) Estimated GFR > 60 Glucose 225 mg/dL H mg/dL (70-100) Calcium 9.5 mg/dL mg/dL (8.5-10.4) Total Bilirubin 0.7 mg/dL mg/dL (0.1-1.4) Conjugated Bilirubin 0.3 mg/dL mg/dL (0.0-0.5) Unconjugated Bilirubin 0.4 mg/dL mg/dL (0.0-1.1) AST 29 IU/L IU/L (17-59) ALT 46 IU/L IU/L (21-72) Alkaline Phosphatase 82 IU/L IU/L (38-126) Total Protein 7.1 g/dL g/dL (6.3-8.2) Albumin 3.6 g/dL g/dL (3.5-5.0) Medications Given: Vancomycin/Sodium Chloride (Vancomycin 1 Gm (Premix)) 250 mls @ 250 mls/hr IV EDNOW ONE PRN Reason: Protocol Stop: 12/19/16 03:15 Last Admin: 12/19/16 02:30 Dose: 250 mls Departure - Departure Disposition: [facility] In[facility] Acute Clinical Impression: Cellulitis Qualifiers: Site of cellulitis: extremity Site of cellulitis of extremity: lower extremity Laterality: unspecified laterality Qualified Code(s): L03.119 - Cellulitis of unspecified part of limb Condition: Fair
[2016-12-19 01:25] LABS: % IMMATURE GRANULYOCYTES 0.3 % (0.0-1.1); ABSOLUTE IMMATURE GRANULOCYTES 0.02 10^3/uL (0.00-0.10); ADD DIFF? NO; ADD MORPH? NO; ADD SCAN? NO; ATYPICAL LYMPHOCYTE FLAG 0 (0-99); FRAGMENT RBC FLAG 0 (0-99); HEMATOCRIT 46.8 % (40.0-51.0); HEMOGLOBIN 15.9 g/dL (13.7-17.5); LEFT SHIFT FLG 0 (0-99); LIPEMIA HEMOLYSIS FLAG 90 (0-99); MEAN CELL HEMOGLOBIN 28.3 pg (27.9-34.1); MEAN CELL VOLUME 83.4 fL (81.5-99.8); MEAN PLATELET VOLUME 9.1 fL (8.7-11.7); PLATELET CLUMPS FLAG 0 (0-99); PLATELET COUNT 220 10^3/uL (150-400); RED BLOOD CELL COUNT 5.61 10^6/uL (4.40-6.38); RED CELL DISTRIBUTION WIDTH 13.5 % (11.5-15.2)
[2016-12-19 01:35] LABS: ALANINE AMINOTRANSFERASE 46 IU/L (21-72); ALBUMIN 3.6 g/dL (3.5-5.0); ALKALINE PHOSPHATASE 82 IU/L (38-126); ANION GAP 11 mEq/L (8-16); ASPARTATE AMINOTRANSFERASE 29 IU/L (17-59); BILIRUBIN,TOTAL 0.7 mg/dL (0.1-1.4); BILIRUBIN-CONJUGATED 0.3 mg/dL (0.0-0.5); BILIRUBIN-UNCONJUGATED 0.4 mg/dL (0.0-1.1); CALCIUM 9.5 mg/dL (8.5-10.4); CARBON DIOXIDE 25 mEq/l (22-31); CHLORIDE 100 mEq/L (97-110); GLOMERULAR FILTRATION RATE > 60; GLUCOSE 225 mg/dL (70-100); SODIUM 136 mEq/L (134-144); TOTAL PROTEIN 7.1 g/dL (6.3-8.2)
[2016-12-19 01:38] LABS: APTT 25.5 SEC (23.0-38.0); INR 1.03 (0.83-1.16); PROTIME(PATIENT) 13.4 SEC (12.0-15.0)
[2016-12-19] MEDS ORDERED: VANCOMYCIN HCL/NORMAL SALINE 250 ML IV ONE (02:16)
[2016-12-19] MEDS ORDERED: ACETAMINOPHEN 325 MG TAB PO PRN (02:42)
[2016-12-19] MEDS ORDERED: ONDANSETRON 4 MG/2 ML VIAL IVP PRN (02:42)
[2016-12-19] MEDS ORDERED: diphenhydrAMINE 25 MG CAP PO PRN (02:42)
[2016-12-19] MEDS ORDERED: oxyCODONE IR 5 MG TAB PO PRN (02:42)
[2016-12-19] MEDS ORDERED: ONDANSETRON DISINTEGRATING 4 MG TAB PO PRN (02:42)
--- NOTE | 2016-12-19 02:49 | PDGENHP ---
History and Physical - Chief Complaint Acute leg pain - History of Present Illness PCP: [facility] Primary Surg: Dr. Morgan Primary cards: Dr. Patrick HPI: 56 yo M p/w acute rash characterized as burning sensation w/ clusters of petechiae w/ associated edema and pain located in bilat lower extremities, as well as purulent drainage located along the anterior ariza LLE. The onset is 2 days ago, duration persistent thereafter. He has not put any topicals on the rash, and he is not on Abx. He took all of his home Rx on 12/18, but does report that his hydralazine ran out in June and he hasn't gotten it refilled. He denies any recent trauma to the LLE, albeit he admits that he may have "bumped" the leg on things in his home, since his family are hoarders and the floor is challenging to navigate. He tries to keep the legs elevated, but is not always successful. History Information - Allergies/Home Medication List Allergies/Adverse Reactions: bacitracin zinc [From Neosporin] Allergy (Verified 11/11/16 12:12) cephalexin monohydrate [From Keflex] Allergy (Verified 11/11/16 12:12) clindamycin Allergy (Verified 11/11/16 12:12) codeine [Codeine] Allergy (Verified 11/11/16 12:12) gramicidin D [From Neosporin] Allergy (Verified 11/11/16 12:12) latex [Latex] Allergy (Verified 11/11/16 12:12) mupirocin [From Bactroban] Allergy (Verified 11/11/16 12:12) neomycin sulfate [From Neosporin] Allergy (Verified 11/11/16 12:12) NSAIDS (Non-Steroidal Anti-Inflamma [Nsaids] Allergy (Verified 11/11/16 12:12) peanut Allergy (Verified 11/11/16 12:12) Penicillins Allergy (Verified 11/11/16 12:12) polymyxin B [From Neosporin] Allergy (Verified 11/11/16 12:12) Sulfa (Sulfonamide Antibiotics) Allergy (Verified 11/11/16 12:12) sulfamethoxazole [From Bactrim] Allergy (Verified 11/11/16 12:12) trimethoprim [From Bactrim] Allergy (Verified 11/11/16 12:12) Home Medications: Albuterol [Proventil Inhaler HFA (*)] 2 puffs IH Q4H PRN 09/20/14 [Last Taken Unknown] Insulin Aspart [novoLOG] 5 unit SC TIDMEAL 09/20/14 [Last Taken 01/20/16] Lisinopril [Zestril 40 mg (*)] 40 mg PO DAILY 09/20/14 [Last Taken 01/21/16] Aspirin EC [Aspirin EC 81 mg (*)] 81 mg PO DAILY 01/21/16 [Last Taken 06/05/16] Cetirizine [ZyrTEC 10 mg (*)] 10 mg PO DAILY 01/21/16 [Last Taken 06/05/16] Diltiazem HCl [Diltiazem 24Hr Cd] 180 mg PO DAILY 01/21/16 [Last Taken 06/05/16] Insulin Aspart [Novolog Flexpen] 0 unit SQ TIDMEAL 06/06/16 [Last Taken Unknown] Metoprolol Tartrate [Lopressor 50 mg (*)] 50 mg PO BID 06/06/16 [Last Taken ] I have personally reviewed and updated: family history, medical history, social history, surgical history - Past Medical History atrial fibrillation (paroxysmal), coronary artery disease (w/ LAD stent), diabetes type 2 (w/ gastroparesis), hypertension, hyperlipidemia Additional medical history: Morbid obesity. Hepatic Steatosis. Mac Degeneration. Recurrent leg wounds/cellulitis w/ venous stasis - Surgical History Additional surgical history: Umbilical hernia repair - Family History Additional family history: mother w/ CAD/HTN/DM, father w/ CAD/PPM - Social History Smoking Status: Never smoked Alcohol Use: None Drug Use: None Additional social history: lives w/ hoarders (parents, sibling) Review of Systems Review of Systems: ROS: 10pt was reviewed & negative except for what was stated in HPI & below Cardiac: Reports: edema Skin: Reports: other (rash and pustulent drainage) Physical Exam Physical Exam: Temp Pulse Resp BP Pulse Ox 36.4 C 62 20 180/92 H 95 12/19/16 02:03 12/19/16 02:03 12/19/16 02:03 12/19/16 02:03 12/19/16 02:03 Constitutional: no apparent distress, not in pain, obese, No uncomfortable Eyes: PERRL, anicteric sclera, EOMI Ears, Nose, Mouth, Throat: moist mucous membranes, hearing normal, ears appear normal, no oral mucosal ulcers Cardiovascular: regular rate and rhythym, no murmur, rub, or gallop, edema (1+ bilat LE), No systolic murmur, No irregularly irregular, No tachycardia Respiratory: no respiratory distress, no rales or rhonchi, clear to auscultation Gastrointestinal: soft, non-tender abdomen, no palpable masses, distension ( moderate), No normoactive bowel sounds (hypoactive bowel sounds) Skin: other (purulent drainage from small abrasions anterior left ariza w/ blanchable erythema, stasis dermatitis bilat LE, clusters of petechiae bilat inner thighs which are mildly raised) Neurologic: AAOx3, No sensation intact bilaterally (paresthesias distal bilat LE ), No weakness (motor 5/5 bilat LE) Psychiatric: interacting appropriately, not anxious, not encephalopathic, thought process linear Lab Data & Imaging Review 12/19/16 01:05 12/19/16 01:05 WBC 7.65 10^3/uL (3.80-9.50) 12/19/16 01:05 RBC 5.61 10^6/uL (4.40-6.38) 12/19/16 01:05 Hgb 15.9 g/dL (13.7-17.5) 12/19/16 01:05 Hct 46.8 % (40.0-51.0) 12/19/16 01:05 MCV 83.4 fL (81.5-99.8) 12/19/16 01:05 MCH 28.3 pg (27.9-34.1) 12/19/16 01:05 MCHC 34.0 g/dL (32.4-36.7) 12/19/16 01:05 RDW 13.5 % (11.5-15.2) 12/19/16 01:05 Plt Count 220 10^3/uL (150-400) 12/19/16 01:05 MPV 9.1 fL (8.7-11.7) 12/19/16 01:05 Neut % (Auto) 72.1 % (39.3-74.2) 12/19/16 01:05 Lymph % (Auto) 15.6 % (15.0-45.0) 12/19/16 01:05 [place] % (Auto) 7.2 % (4.5-13.0) 12/19/16 01:05 Eos % (Auto) 4.3 % (0.6-7.6) 12/19/16 01:05 Baso % (Auto) 0.5 % (0.3-1.7) 12/19/16 01:05 Nucleat RBC Rel Count 0.0 % (0.0-0.2) 12/19/16 01:05 Absolute Neuts (auto) 5.52 10^3/uL (1.70-6.50) 12/19/16 01:05 Absolute Lymphs (auto) 1.19 10^3/uL (1.00-3.00) 12/19/16 01:05 Absolute Monos (auto) 0.55 10^3/uL (0.30-0.80) 12/19/16 01:05 Absolute Eos (auto) 0.33 10^3/uL (0.03-0.40) 12/19/16 01:05 Absolute Basos (auto) 0.04 10^3/uL (0.02-0.10) 12/19/16 01:05 Absolute Nucleated RBC 0.00 10^3/uL (0-0.01) 12/19/16 01:05 Immature Gran % 0.3 % (0.0-1.1) 12/19/16 01:05 Immature Gran # 0.02 10^3/uL (0.00-0.10) 12/19/16 01:05 PT 13.4 SEC (12.0-15.0) 12/19/16 01:05 INR 1.03 (0.83-1.16) 12/19/16 01:05 APTT 25.5 SEC (23.0-38.0) 12/19/16 01:05 Sodium 136 mEq/L (134-144) 12/19/16 01:05 Potassium 4.0 mEq/L (3.5-5.2) 12/19/16 01:05 Chloride 100 mEq/L (97-110) 12/19/16 01:05 Carbon Dioxide 25 mEq/l (22-31) 12/19/16 01:05 Anion Gap 11 mEq/L (8-16) 12/19/16 01:05 BUN 16 mg/dL (7-23) 12/19/16 01:05 Creatinine 1.0 mg/dL (0.7-1.3) 12/19/16 01:05 Estimated GFR > 60 12/19/16 01:05 Glucose 225 mg/dL (70-100) H 12/19/16 01:05 Calcium 9.5 mg/dL (8.5-10.4) 12/19/16 01:05 Total Bilirubin 0.7 mg/dL (0.1-1.4) 12/19/16 01:05 Conjugated Bilirubin 0.3 mg/dL (0.0-0.5) 12/19/16 01:05 Unconjugated Bilirubin 0.4 mg/dL (0.0-1.1) 12/19/16 01:05 AST 29 IU/L (17-59) 12/19/16 01:05 ALT 46 IU/L (21-72) 12/19/16 01:05 Alkaline Phosphatase 82 IU/L (38-126) 12/19/16 01:05 Total Protein 7.1 g/dL (6.3-8.2) 12/19/16 01:05 Albumin 3.6 g/dL (3.5-5.0) 12/19/16 01:05 Assessment & Plan Assessment: 56 yo M p/w recurrent cellulitis in setting of venous stasis 2/2 morbid obesity Plan: 1. Cellulitis. Acute, new problem, further w/u indicated. Purulent, recurrent, L >R - reviewed outside records (01/21/16 micro results w/ MSSA and strep pyogenes from wound cx) - US w/o DVT - d/w Dr. Coats in ED, he reports he has given Vanco, will continue and gauge effect - get wound care and ID consults, will need outpt wound care clinic f/u - BCx sent 2. Morbid obesity. Increased risk for ongoing venous stasis, worsening morbidity 3. HTN. Chronic, cont home Rx once reconciled, reinitiate hydralazine PO tonight - adjust HCTZ to lasix, may be more effective 4. CAD. Chronic, cont home Rx 5. Paroxysmal Afib. Reviewed outside records (DC summary by Dr. Myriam Monroy 06/08, reports cath neg for chest pain w/u, had Afib post-procedure, discharged on eliquis x 30 days, atenolol) - if tachy, get EKG 6. Rash. Likely 2/2 local irritation from cellulitis, albeit contact dermatitis from recent walk outside in untamed grass is also possible - PRN 1% hydrocortisone to areas away from the draining abrasions, PRN benadryl PO - gauge response to IV Abx Diet. Diabetic PPx. High risk, lovenox 40 Code. Full, daughter MDPOA Dispo. ADD 12/20, pending clinical improvement in above.
[2016-12-19] MEDS: FUROSEMIDE 20 MG/2 ML VIAL IVP SCH ×2 (04:08→09:48)
[2016-12-19] MEDS: HYDROCORTISONE 1% CREAM TP PRN ×2 (04:08→11:12)
[2016-12-19] MEDS: hydrALAZINE 25 MG TAB PO SCH ×3 (04:08→11:44)
[2016-12-19] MEDS ORDERED: D50W 25 GM/50 ML SYR IVP PRN (06:46)
[2016-12-19 08:30] VITALS: BP 178/87; RESP 14; TEMP 97.6; O2SAT 94
[2016-12-19] MEDS: INSULIN REGULAR HUMAN 100 UNIT/ML SC SCH ×2 (08:34→11:19)
[2016-12-19] MEDS ORDERED: ENOXAPARIN 40 MG/0.4 ML SYR SC SCH (09:00)
[2016-12-19] MEDS ORDERED: ALBUTEROL 200 PUFFS/18 GM MDI IH PRN (09:27)
[2016-12-19] MEDS ORDERED: METOPROLOL TARTRATE 50 MG TAB PO SCH (09:30)
[2016-12-19] MEDS ORDERED: DILTIAZEM CD 180 MG CAP PO SCH (09:30)
[2016-12-19] MEDS ORDERED: hydrALAZINE 10 MG TAB PO SCH (09:30)
[2016-12-19] MEDS ORDERED: LISINOPRIL 40 MG TAB PO SCH (09:30)
[2016-12-19] MEDS ORDERED: CETIRIZINE 10 MG TAB PO SCH (09:30)
[2016-12-19] MEDS ORDERED: ASPIRIN 81 MG CHEWABLE TAB PO SCH (09:30)
[2016-12-19 09:51] VITALS: PULSE 68
--- NOTE | 2016-12-19 10:20 | PCMIDPN ---
Assessment/Plan: # chronic venous insufficiency: Recommend ongoing compression and elevation while sleeping. # possible LLE cellulitis: minimal evidence of ongoing infection today. WBC normal, AF --dc 5 days on doxycycline 100mg PO BID # petechial rash: unclear etiology Time 25 minutes greater than 50% time spent with education and counseling of the patient regarding elevation and Subjective: 56-year-old male with multiple antibiotic allergies previously seen for left lower extremity cellulitis who returns to the emergency room after he develops worsening swelling of the left lower extremity with some brownish drainage x1 day. In addition patient developed a petechial rash 2 days prior to admission. Denies changes in medications or specific exposures. He also denies URI symptoms. No fevers chills or night sweats. Overnight patient was admitted and started on IV vancomycin. Blood cultures were collected and are NGTD. "I slept good last night for the first time in a while" Objective: Vital Signs Temp Pulse Resp BP Pulse Ox 36.4 C 68 14 178/87 H 94 12/19/16 08:29 12/19/16 09:50 12/19/16 08:29 12/19/16 08:29 12/19/16 08:29 12/18/16 12/19/16 12/20/16 05:59 05:59 05:59 Output Total 2200 500 Balance -2200 -500 Medications Generic Name Dose Route Start Last Admin Trade Name Freq PRN Reason Stop Dose Admin Vancomycin HCl 1.5 gm/ 250 mls @ 166.67 mls/hr 12/19/16 15:00 Dextrose IV 01/18/17 14:59 Q12H JESUS Protocol Exam General :nontoxic-appearing male lying in bed HEENT :pupils are reactive bilaterally, oropharynx fair dentition moist mucous membranes no oral ulcerations or exudate Neck :supple no lymphadenopathy Cardiovascular :RRR no murmurs Abdomen soft nontender bowel sounds are present midline ventral hernia that is reducible. Extremities petechial eruption scattered on the lower extremities, left lower extremity with some edema skin cracking with associated small areas of bleeding. No clear wound, but just fissures. left calf circumference is 40.5 cm with right 44.5 cm ICD10 Worksheet Patient Problems: Problems Problem Status Onset Cellulitis Acute Acute anterior epistaxis Acute Chest pain Acute Chest pain Acute Coronary angioplasty status Acute Leg wound, left Acute Syncope Acute
--- NOTE | 2016-12-19 10:37 | WOCRNPDOC ---
WOCRN Advanced Assessment Note - Skin Integrity Problem, Advanced Assess Left Anterior Lower Leg Venous Stasis Ulcer Dressing Type: Open to Air Exudate Amount: Minimal Exudate Characteristic(s): Serosanguinous Carisa Wound Tissue: Erythema, Shiny, Xerotic, Scarred Wound Bed Constitution: Smooth Tissue Wound Edges: Attached Site Measurement - Head-to-Toe Length X Width X Depth (cm): 5x3.5x0.1 Extremity Temperature: Warm Peripheral Edema Location & Description: BLE edema Skin Integrity Problem Comment: Patient from wound healing center. Multiple small oozing openings/fissures along the anterior lower leg with surrounding erythema. Patients left calf circumference is 40.5 cm with right being 44.5 cm. Patient reports that wounds began to break open after not being able to elevate the leg for a period of time. There is also a scattered rash on bilateral lower legs some in clusters of small red dots/petechiae others distributed evenly throughout extending to lower abdomen. Spandigrip E will be sent down for patient (it is latex free). Wound care will round again next week.
[2016-12-19] MEDS ORDERED: INSULIN LISPRO 100 UNIT/ML SC SCH (12:00)
[2016-12-19] MEDS ORDERED: NON-FORMULARY NEW DRUG (Insulin Aspart [Novolog] 5 UNIT) SC SCH (12:00)
[2016-12-19] MEDS ORDERED: VANCOMYCIN 1.5 GM in D5W 250 ML IV SCH (15:00)
--- NOTE | 2016-12-19 15:23 | PDDCSUM ---
Discharge Summary Discharge Summary: Dates of service 12/18-12/19/16 Discharge dx: # chronic venous stasis and venous stasis dermatitis # ? cellulitis # obesity # hx of CAD # DM # p a fib Consultations: ID Procedures: extremity venous US (no DVT) Hospital course by problem # chronic venous stasis: with associated venous stasis dermatitis and some areas leaking serosanguinous fluid on anterior ariza. Wound care following both as an IP and OP and will continue current course of tx # ? cellulitis: on arrival LLE noted to have increased swelling/erythema and drainage in setting of above, started on IV vancomycin. Today, not clearly c/w infection. ID evaluated and plan will be to transition to oral doxy for short course (5 days) and continue usual op care. # chronic medical issues: CAD, obesity, p a fib, DM--continue op management, no changes made to usual medications DC home f/u with PCP, wound care, ID > 35 minutes spent in dc, more than half in coordination of care
[2016-12-19] MEDS ORDERED: INSULIN GLARGINE 100 UNITS/ML SYRINGE SC SCH (21:00)
[2016-12-19] MEDS ORDERED: INSULIN DETEMIR 35 UNIT SC SCH (21:00)
== END 2016-12-19 15:21 | disposition home or self-care (01) ==
LOC: INTOOBSV 12-19 02:26 → F1N 12-19 03:15
PROVIDERS: ADMIT Internal Medicine; ATTEND Internal Medicine
DX: I87.2 Venous insufficiency (chronic) (peripheral) (principal); I87.8 Other specified disorders of veins; R21 Rash and other nonspecific skin eruption; R60.0 Localized edema; E11.9 Type 2 diabetes mellitus without complications; I10 Essential (primary) hypertension; I25.10 Atherosclerotic heart disease of native coronary artery without angina pectoris; I48.91 Unspecified atrial fibrillation; E78.5 Hyperlipidemia, unspecified; E66.01 Morbid (severe) obesity due to excess calories; Z68.36 Body mass index [BMI] 36.0-36.9, adult; I25.2 Old myocardial infarction; G47.33 Obstructive sleep apnea (adult) (pediatric); Z79.4 Long term (current) use of insulin; Z87.891 Personal history of nicotine dependence; Z88.0 Allergy status to penicillin; Z91.040 Latex allergy status; Z88.2 Allergy status to sulfonamides; Z88.1 Allergy status to other antibiotic agents
CPT/HCPCS: 93970; 97161; G0378; 96365; J1650; J1815; J1940; J3370

== ENCOUNTER 2017-01-03 03:42 | Inpatient (IN) | payer MEDICAID ==
[2017-01-03] MEDS ORDERED: NS 500 ML IV ONE (03:50)
--- NOTE | 2017-01-03 03:55 | EDPHY ---
H & P Stated Complaint: weakness in right leg HPI/ROS: HPI CHIEF COMPLAINT: Right leg weakness, woke up with this HISTORY OF PRESENT ILLNESS: This patient is a 56-year-old male significant past medical history for multiple medical problems including AFib, diabetes, obesity, coronary artery disease with stents, chronic venous stasis chronic lower extremity edema, he presents emergency room with right leg weakness. He denies right-sided weakness except for his leg. Patient states he woke up around 230 with this. He is unsure exactly what time of onset was could he woke up with it. He noticed when he was trying to walk to go to the bathroom his right leg was weak. He denies right arm weakness or facial droop. Denies headache. Denies chest pain or shortness of breath. Main complaint is right leg weakness. No other complaints. Additionally tells me is some right lateral hip pain. Denies trauma. He denies back pain. Saddle anesthesia. Past Medical History: Hypertension, coronary disease, obesity, diabetes, AFib, chronic venous stasis, chronic lower extremity edema, chronic left leg wound Past Surgical History: No recent surgery, cardiac stents Social History: Denies daily use of drugs alcohol tobacco products. Family History: Noncontributory ROS REVIEW OF SYSTEMS: A comprehensive 10 point review of systems is otherwise negative aside from elements mentioned in the history of present illness. Exam Constitutional appears well nontoxic, triage nursing summary reviewed, vital signs reviewed, awake/alert. Eyes normal conjunctivae and sclera, EOMI, PERRLA. HENT normal inspection, atraumatic, moist mucus membranes, no epistaxis, neck supple/ no meningismus, no raccoon eyes. Respiratory clear to auscultation bilaterally, normal breath sounds, no respiratory distress, no wheezing. Cardiovascular rate normal, regular rhythm, no murmur, no edema, distal pulses normal. Gastrointestinal soft, non-tender, no rebound, no guarding, normal bowel sounds, no distension, no pulsatile mass. Genitourinary no CVA tenderness. Musculoskeletal no midline vertebral tenderness, full range of motion, no calf swelling, no tenderness of extremities, no meningismus, good pulses, neurovascularly intact. Skin pink, warm, & dry, no rash, skin atraumatic. Neurologic awake, alert and oriented x 3, AAOx3, moves all 4 extremities equally, motor intact, sensory intact, CN II-XII intact, normal cerebellar, normal vision, normal speech. He has a normal neurological exam except when I asked him to lift his right leg up off the bed it is weak. He compare lifted off the bed. His left leg is good strength. Right leg is neurovascular intact. Warm extremity. However appears to be weak. When he lifts it off the bed he has right lateral hip pain. Psychiatric normal mood/affect. Heme/Lymph/Immune no lymphadenopathy. Differential Diagnosis: Includes but is not limited to in a particular order right leg fracture, hip fracture, iliotibial band syndrome, stroke Medical Decision Making: Plan for this patient IV establishment blood draw, x- ray right hip, CT head without contrast. This patient's only neurological deficit his right leg weakness. He has no other symptoms. He is not a tPA candidate as he woke up with these symptoms and is unsure exactly what time of onset is. Re-evaluation: CT scan of the head without IV contrast The results of the study are negative for acute injury specifically no bleed or infarct The study was read by Dr. Skinner. I viewed the images myself on the PACS system. ED x-ray right hip: Negative for acute fracture. Image interpreted by myself. [id number]: I did re-evaluate this patient this time. He is resting comfortably no acute distress. Still has right leg weakness. Unable to fully lift off the bed. Includes right lateral hip pain. I think this is a localized process. Unlikely to be neurological. His CT scan of his head does not show any acute bleed or stroke. He is agreeable for admission. Blood work is appropriate. Troponin negative. EKG interpretation by me on record in [facility] system. Impression time of EKG 4:00 a.m., this is sinus rhythm rate of 58 some motion artifact. Q-waves present V1 V2 V3. Similar to previous EKG. Dated 06/07/16 Source: Patient, EMS - Personal History Current Tetanus/Diphtheria Vaccine: Yes Current Tetanus Diphtheria and Acellular Pertussis (TDAP): Yes Tetanus Vaccine Date: 2011 - Medical/Surgical History Hx Asthma: Yes Hx Chronic Respiratory Disease: Yes Hx Diabetes: Yes Hx Cardiac Disease: Yes Hx Renal Disease: No Hx Cirrhosis: No Hx Alcoholism: No Hx HIV/AIDS: No Hx Splenectomy or Spleen Trauma: No Other PMH: MEd hx-Diabetes,cholesterol,HTN,GA. Surg-umbilical hernia,dental, tonsils,3-stents - Social History Smoking Status: Never smoked Constitutional: Initial Vital Signs Temperature (C) 36.7 C 01/03/17 03:47 Heart Rate 65 01/03/17 03:47 Respiratory Rate 16 01/03/17 03:47 Blood Pressure 148/80 H 01/03/17 03:47 O2 Sat (%) 94 01/03/17 03:47 O2 Delivery Mode Room Air O2 (L/minute) 1.5 Allergies/Adverse Reactions: bacitracin zinc [From Neosporin] Allergy (Verified 01/03/17 03:46) cephalexin monohydrate [From Keflex] Allergy (Verified 01/03/17 03:46) clindamycin Allergy (Verified 01/03/17 03:46) codeine [Codeine] Allergy (Verified 01/03/17 03:46) gramicidin D [From Neosporin] Allergy (Verified 01/03/17 03:46) latex [Latex] Allergy (Verified 01/03/17 03:46) mupirocin [From Bactroban] Allergy (Verified 01/03/17 03:46) neomycin sulfate [From Neosporin] Allergy (Verified 01/03/17 03:46) NSAIDS (Non-Steroidal Anti-Inflamma [Nsaids] Allergy (Verified 01/03/17 03:46) peanut Allergy (Verified 01/03/17 03:46) Penicillins Allergy (Verified 11/11/16 12:12) polymyxin B [From Neosporin] Allergy (Verified 11/11/16 12:12) Sulfa (Sulfonamide Antibiotics) Allergy (Verified 11/11/16 12:12) sulfamethoxazole [From Bactrim] Allergy (Verified 11/11/16 12:12) trimethoprim [From Bactrim] Allergy (Verified 11/11/16 12:12) Home Medications: Medication Instructions Recorded Acetaminophen [Tylenol 325mg (*)] 650 mg PO Q4HRS PRN tab 12/19/16 Albuterol [Proventil Inhaler HFA 2 puffs IH Q4 PRN 12/19/16 (*)] Aspirin [Aspirin 81mg (*)] 243 mg PO DAILY 12/19/16 Cetirizine [ZyrTEC 10 mg (*)] 10 mg PO DAILY 12/19/16 Diltiazem HCl [Diltiazem 24Hr Cd] 180 mg PO DAILY 12/19/16 Hydrocortisone 1% [Hydrocortisone 1 jo TP BID PRN cream 12/19/16 1% cream (*)] Insulin Aspart [novoLOG] 5 unit SC TIDMEAL 12/19/16 Insulin Detemir [Levemir] 35 units SC HS 12/19/16 Lisinopril [Zestril 40 mg (*)] 40 mg PO DAILY 12/19/16 Metoprolol Tartrate [Lopressor 50 50 mg PO BID 12/19/16 mg (*)] hydrALAZINE [Apresoline 10 mg (*)] 10 mg PO BID 12/19/16 Medical Decision Making - Diagnostics Imaging Results: Imaging Impressions Hip X-Ray 01/03/17 03:50 Impression: 1. No acute fracture. 2. Minimal osteoarthritis with possible femoral acetabular impingement on the right. Lumbar Spine MRI 01/03/17 12:13 Impression: Minimal degenerative disk disease at L4-L5 causing no significant encroachment. Benign hemangiomata L1 and L2 vertebral bodies. Simple appearing exophytic renal cortical cyst, posterior right kidney. - Data Points Laboratory Results: Laboratory Results 01/03/17 04:00 01/03/17 04:00 01/03/17 16:25 POC Glucose 206 mg/dL H mg/dL (70-100) Medications Given: Acetaminophen (Tylenol) 650 mg PO Q4HRS PRN PRN Reason: Pain, Mild/Fever, Can Take PO Stop: 07/02/17 11:56 Last Admin: 01/03/17 21:10 Dose: 650 mg Aspirin (Aspirin) 243 mg PO DAILY [facility] Stop: 07/02/17 11:59 Last Admin: 01/03/17 13:19 Dose: 243 mg Diltiazem HCl (Cardizem Er Q24hr) 180 mg PO DAILY [facility] Stop: 07/02/17 11:59 Last Admin: 01/03/17 13:19 Dose: 180 mg Hydralazine HCl (Apresoline) 10 mg PO BID [facility] Stop: 07/02/17 11:59 Last Admin: 01/03/17 21:08 Dose: 10 mg Insulin Human Lispro (Humalog Lispro) 5 unit SC TIDMEAL [facility] Stop: 07/02/17 17:59 Last Admin: 01/03/17 17:20 Dose: 5 units Lisinopril (Zestril) 40 mg PO DAILY [facility] Stop: 07/02/17 11:59 Last Admin: 01/03/17 13:18 Dose: 40 mg Metoprolol Tartrate (Lopressor) 50 mg PO BID [facility] Stop: 07/02/17 11:59 Last Admin: 01/03/17 21:08 Dose: 50 mg Discontinued Medications Hydralazine HCl (Apresoline) 10 mg PO EDNOW ONE Stop: 01/03/17 10:08 Last Admin: 01/03/17 10:21 Dose: 10 mg Sodium Chloride (Ns) 500 mls @ 0 mls/hr IV EDNOW ONE; Wide Open PRN Reason: Protocol Stop: 01/03/17 03:51 Last Admin: 01/03/17 04:22 Dose: 500 mls Point of Care Test Results: 01/03/17 16:25 POC Glucose 206 H Departure - Departure Disposition: [facility] Inpatient Acute Clinical Impression: Right leg weakness Condition: Fair
[2017-01-03 04:18] LABS: % IMMATURE GRANULYOCYTES 0.4 % (0.0-1.1); ABSOLUTE IMMATURE GRANULOCYTES 0.03 10^3/uL (0.00-0.10); ADD DIFF? NO; ADD MORPH? NO; ADD SCAN? NO; ATYPICAL LYMPHOCYTE FLAG 0 (0-99); FRAGMENT RBC FLAG 0 (0-99); HEMATOCRIT 49.5 % (40.0-51.0); HEMOGLOBIN 16.7 g/dL (13.7-17.5); LEFT SHIFT FLG 0 (0-99); LIPEMIA HEMOLYSIS FLAG 80 (0-99); MEAN CELL HEMOGLOBIN 28.1 pg (27.9-34.1); MEAN CELL HEMOGLOBIN CONCENTR. 33.7 g/dL (32.4-36.7); MEAN CELL VOLUME 83.2 fL (81.5-99.8); MEAN PLATELET VOLUME 9.4 fL (8.7-11.7); PLATELET CLUMPS FLAG 0 (0-99); PLATELET COUNT 217 10^3/uL (150-400); RED BLOOD CELL COUNT 5.95 10^6/uL (4.40-6.38); RED CELL DISTRIBUTION WIDTH 13.5 % (11.5-15.2)
[2017-01-03 04:28] LABS: INR 1.04 (0.83-1.16); PROTIME(PATIENT) 13.5 SEC (12.0-15.0)
[2017-01-03 04:29] LABS: APTT 25.3 SEC (23.0-38.0)
[2017-01-03 04:58] LABS: ALANINE AMINOTRANSFERASE 46 IU/L (21-72); ALBUMIN 3.9 g/dL (3.5-5.0); ALKALINE PHOSPHATASE 85 IU/L (38-126); ANION GAP 11 mEq/L (8-16); ASPARTATE AMINOTRANSFERASE 25 IU/L (17-59); BILIRUBIN-CONJUGATED 0.2 mg/dL (0.0-0.5); BILIRUBIN-UNCONJUGATED 0.8 mg/dL (0.0-1.1); CALCIUM 9.6 mg/dL (8.5-10.4); CARBON DIOXIDE 24 mEq/l (22-31); CHLORIDE 101 mEq/L (97-110); CREATININE 0.9 mg/dL (0.7-1.3); GLOMERULAR FILTRATION RATE > 60; GLUCOSE 228 mg/dL (70-100); MAGNESIUM 1.9 mg/dL (1.6-2.3); POTASSIUM 3.9 mEq/L (3.5-5.2); SODIUM 136 mEq/L (134-144); TOTAL PROTEIN 7.7 g/dL (6.3-8.2)
[2017-01-03 05:07] LABS: CREATINE KINASE-MB FRACTION 2.33 ng/mL (0.00-3.19)
[2017-01-03 05:27] LABS: TROPONIN I < 0.012 ng/mL (0.000-0.034)
[2017-01-03] MEDS ORDERED: hydrALAZINE 10 MG TAB PO ONE (10:07)
[2017-01-03] MEDS ORDERED: HYDROCORTISONE 1% CREAM TP PRN (11:57)
[2017-01-03] MEDS ORDERED: ALBUTEROL 60 PUFFS/8 GM MDI IH PRN (11:57)
[2017-01-03] MEDS ORDERED: NON-FORMULARY NEW DRUG (Insulin Aspart [Novolog] 5 UNIT) SC SCH (12:00)
[2017-01-03] MEDS ORDERED: ONDANSETRON DISINTEGRATING 4 MG TAB PO PRN (12:17)
[2017-01-03] MEDS ORDERED: ONDANSETRON 4 MG/2 ML VIAL IVP PRN (12:17)
[2017-01-03] MEDS ORDERED: ACETAMINOPHEN 325 MG TAB PO PRN (12:17)
--- NOTE | 2017-01-03 12:58 | CPEKG ---
Heart Rate: 58 RR Interval: 1034 P-R Interval: 167 QRSD Interval: 98 QT Interval: 416 QTC Interval: 409 P [place]: 37 QRS [place]: -12 T Wave [place]: 64 EKG Severity - ABNORMAL ECG - EKG Impression: SINUS RHYTHM EKG Impression: artifact Electronically Signed By: Adama Green 05-Jan-2017 08:30:44
--- NOTE | 2017-01-03 13:11 | GHP ---
[f rep st] HISTORY AND PHYSICAL DATE OF ADMISSION: 01/03/2017 HISTORY OF PRESENT ILLNESS: The patient is a pleasant 56-year-old gentleman, well known to me. I th ink I have taken care of some of his family members in the past, who presents with right leg weakness . He was hospitalized earlier in the month with a left lower extremity possible cellulitis. He rece ived a 5 day course of doxycycline. He has been doing well with that. He has been getting some loca l wound care. Last night, he got up to go to the bathroom and his right leg gave out. He is noted t o have objective weakness on exam. He has a positive straight leg raise with back pain. He does hav e a history of low back pain, but does not have a previous history of known spine disease. He has in tact sensation. Denied fever, chills. He has some cough. No sputum, no diarrhea. REVIEW OF SYSTEMS: A complete 10-point review of systems was conducted, and negative except as noted in the HPI. PAST MEDICAL HISTORY: 1. Coronary artery disease with stents. 2. Type 2 diabetes. 3. Hypertension. 4. Obesity. 5. History of aspirin allergy. 6. Status post desensitization macular degeneration. 7. Diabetic gastroparesis. ALLERGIES: Bactrim, Keflex, penicillin, sulfa, , NSAIDs and aspirin. HOME MEDICATIONS: Acetaminophen, albuterol, aspirin, cetirizine, diltiazem, hydralazine, hydrocortis one, NovoLog, Levemir 35 units h.s., lisinopril, metoprolol. SOCIAL HISTORY: No smoking. No alcohol. Works in [employer]. Lives with elderly parents at [address] [place] [address]. He has 2 grown children. FAMILY HISTORY: Reviewed and unremarkable relative to current situation. PHYSICAL EXAMINATION: VITAL SIGNS: Blood pressure 208/98, pulse 50, breathing 16 times a minute, 95 % on room air. Afebrile at 36.7. GENERAL: In no acute distress. Sclerae anicteric. Oropharynx cl ear. Mucous membranes moist. NECK: Supple, without lymphadenopathy or JVD. LUNGS: Clear to auscu ltation anterolaterally. HEART: S1, S2. Not tachycardic. ABDOMEN: Soft, obese, nontender. LOWER EXTREMITIES: Show 1+ edema bilaterally. There is a pink bandage on his left lower extremity. His right lower extremity is nontender. NEUROLOGIC: Shows weakness with the proximal thigh flexion and extension. He has weakness with leg flexion, extension, but notably dorsiflexion on the right is int act, sensation is normal. He has no evidence of weakness on the left. The patient has no right uppe r extremity weakness. LABORATORY DATA: White count 7.3, hematocrit 49, platelets are 217,000. INR is 1. Sodium 136, pota ssium 3.9, chloride 101, bicarb 24, BUN 16, creatinine 0.9, glucose 228. LFTs normal. Troponin less than 0.012. A noncontrast head CT shows no acute intracranial abnormality. Hip x-ray, interpreted by me, shows n o fracture, question of acetabular impingement. I discussed the case with Dr. Yung Kendrick. ASSESSMENT AND PLAN: A 56-year-old gentleman, who presents with acute right leg weakness. 1. Right leg weakness. I suspect this is musculoskeletal and not neurologic. I think it is reasona ble to go ahead and perform an MRI of his L spine, looking for degenerative disk disease, given his h abitus. I do not think this is L4-L5 given his intact dorsiflexion. I do not think this represents a cerebrovascular accident, given the focality of the symptoms. We will also have PT, OT see him. 2. Hypertension. He is markedly hypertensive on presentation, but he has also missed his medication s, we will go ahead and restart them. 3. Coronary artery disease. Continue his aspirin and statin. 4. Pain. The patient has minimal pain. 5. Wound. We will have wound care see him. 6. Disposition. He is currently admitted inpatient status. I anticipate it will take more than 48 hours for this gentleman to recover. /[id number]/MODL
[2017-01-03] MEDS: hydrALAZINE 10 MG TAB PO SCH ×2 (13:17→21:08)
[2017-01-03] MEDS: METOPROLOL TARTRATE 50 MG TAB PO SCH ×2 (13:17→21:08)
[2017-01-03] MEDS: LISINOPRIL 40 MG TAB PO SCH (13:18)
[2017-01-03] MEDS: ASPIRIN 81 MG CHEWABLE TAB PO SCH (13:19)
[2017-01-03] MEDS: DILTIAZEM CD 180 MG CAP PO SCH (13:19)
[2017-01-03] MEDS: INSULIN LISPRO 100 UNIT/ML SC SCH (17:20)
[2017-01-03] MEDS ORDERED: INSULIN DETEMIR 35 UNIT SC SCH (21:00)
[2017-01-03] MEDS: ACETAMINOPHEN 325 MG TAB PO PRN (21:10)
[2017-01-03] MEDS: INSULIN GLARGINE 100 UNITS/ML SYRINGE SC SCH (22:19)
[2017-01-04] MEDS: hydrALAZINE 10 MG TAB PO SCH (05:50)
[2017-01-04] MEDS: LISINOPRIL 40 MG TAB PO SCH (05:50)
[2017-01-04] MEDS: METOPROLOL TARTRATE 50 MG TAB PO SCH (05:50)
--- NOTE | 2017-01-04 08:30 | HOSPPROG ---
Hospitalist Progress Note Assessment/Plan: Patient is a 56-year-old male who presented to the emergency room with right leg weakness. when he was at home he got out of bed to go to the bathroom and his legs gave out. He was seen and evaluated in the emergency room for he had a CT scan of his brain which showed no acute intracranial abnormality. A repeat CT scan was performed last evening that noted a possible subacute infarct in the left frontal lobe. MRI is currently pending. Today is my 1st encounter with the patient. Chart reviewed. * Likely subacute infarct in left frontal lobe/CVA MRI is pending patient having word expression difficulty/weakness r side symptoms occurred last evening/unclear of time/suspect they started prior to this admission will get CTA of head, neck now neurology will see today lipid panel/A1C/echo ordered on asa ask PT, OT, ST to see * right leg weakness MRI of his back showed L4-L5 with minimal left posterolateral protrusion * hypertension blood pressure has been significantly elevated will allow for permissive hypertension in the setting of ischemia * coronary artery disease on aspirin and statin therapy *hx of Paroxysmal AFIB 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 Subjective: Don is not c/o pain, but lets me know he is having trouble getting the words out. Objective: Vital Signs Temp Pulse Resp BP Pulse Ox 36.7 C 58 L 17 178/87 H 95 01/04/17 07:52 01/04/17 07:52 01/04/17 07:52 01/04/17 07:52 01/04/17 07:52 01/03/17 01/04/17 01/05/17 05:59 05:59 05:59 Output Total 300 Balance -300 PT 13.5 SEC (12.0-15.0) 01/03/17 04:00 INR 1.04 (0.83-1.16) 01/03/17 04:00 - Physical Exam Constitutional: not in pain, obese Eyes: PERRL Ears, Nose, Mouth, Throat: hearing normal Cardiovascular: regular rate and rhythym, no murmur, rub, or gallop Respiratory: no respiratory distress Gastrointestinal: normoactive bowel sounds Skin: warm Musculoskeletal: other (right arm weaker than left, right foot weaker with pulling toes up) Neurologic: AAOx3, pronator drift (right side), other (tongue midline/ can answer my questions appropriately, but takes a bit of time to get the words out) , No facial droop ICD10 Worksheet Patient Problems: Problems Problem Status Onset Right leg weakness Acute Acute anterior epistaxis Acute Cellulitis Acute Chest pain Acute Chest pain Acute Coronary angioplasty status Acute Leg wound, left Acute Syncope Acute
[2017-01-04] MEDS ORDERED: NS 1,000 ML IV SCH (09:00)
[2017-01-04] MEDS ORDERED: IOPAMIDOL (ISOVUE 370) 100 ML BTL IV ONE (09:22)
[2017-01-04] MEDS: ASPIRIN 81 MG CHEWABLE TAB PO SCH (11:40)
[2017-01-04] MEDS: ENOXAPARIN 40 MG/0.4 ML SYR SC SCH (11:42)
[2017-01-04] MEDS: INSULIN LISPRO 100 UNIT/ML SC SCH ×2 (11:42→14:14)
[2017-01-04] MEDS: CETIRIZINE 10 MG TAB PO SCH (11:42)
[2017-01-04] MEDS: DILTIAZEM CD 180 MG CAP PO SCH (11:47)
[2017-01-04 12:21] LABS: CHOLESTEROL 192 mg/dL (140-220); CHOLESTEROL/HDL RATIO 4.68 RATIO (1.00-4.97); HIGH DENSITY LIPOPROTEIN 41 mg/dL (40-65); LDL/HDL RATIO 2.73 RATIO (1.00-3.64); LOW DENSITY LIPOPROTEIN 112 mg/dL (80-100); NON-HIGH DENSITY LIPOPROTEIN 151 mg/dL (90-129); TRIGLYCERIDE 199 mg/dL (40-150); VERY LOW DENSITY LIPOPROTEINS 39 mg/dL (8-25)
--- NOTE | 2017-01-04 12:26 | GCON ---
[f rep st] CONSULTATION NEUROLOGIC CONSULTATION REFERRING PHYSICIAN: Dottie Way NP HISTORY: The patient is a 56-year-old gentleman presenting with a chief complaint of right leg weakn ess. History is obtained from reviewing the medical records predominantly because the patient has a hard time expressing himself well enough to get a detailed history. According to the emergency room notes from Dr. Kendrick early in the morning of the , the patient woke up at 2:30 in the morning a nd noticed he had weakness in his right leg. Exactly when it started was unclear because he awoke wi th it. Apparently did not have it when he went to bed. He noticed this when he was trying to walk. He did not describe any other specific weakness. He was not having headache. He was having a littl e bit of right lateral hip pain but was denying back pain or any focal numbness. He underwent emerge ncy room evaluation which consisted of a head CT that was unrevealing and was admitted to the medicin e service for further evaluation. Differential considerations included local problems perhaps relate d to musculoskeletal disease or stroke. The patient was evaluated by Dr. Errol Christian who also found the right leg weakness and additional history with some pain in the right leg and found positive stra ight leg raising with some back pain on the right. There was concern that he more likely had a focal problem in the right lower extremity related to neuromuscular issues. He has been admitted to the [facility] and monitored. His blood pressure was elevated when he came to the hospital with the highest do cumented pressure of 208/98 at 9 in the morning yesterday and a few others in the 160-200 range, and subsequently pressures have been from 170-200 and a bit better now at 160-170 systolic but still fluc tuating a bit. The patient was seen this morning by nurse practitioner, Dottie Way. She noticed the patient wa s having trouble with verbal expression which had not previously been seen. He had a repeat head CT obtained yesterday around 6:50 p.m. and that had shown changes of possible developing infarct in the left frontal region. MRI this morning has shown acute stroke due to a proximal occlusion of the left anterior cerebral artery at about the A2 level and subsequent ischemia in that entire distribution w ithout mass effect. CT angiogram of the neck has not shown any hemodynamically significant stenosis. Echocardiogram is currently pending. PAST MEDICAL HISTORY: Includes coronary artery disease with stenting, type 2 diabetes, hypertension, obesity, macular degeneration, diabetic gastroparesis. In the emergency room note, there was mentio n of atrial fibrillation and the patient seems to acknowledge that he has had that before, but we do not know the details of that. We will try to get that clarification as well. There is a mention of aspirin allergy in the past medical history, but the patient is apparently actually on aspirin so I a m not clear where that is coming from. FAMILY HISTORY: Noncontributory. MEDICATIONS: Medicines at home have included Tylenol, albuterol, aspirin, cetirizine, diltiazem, hyd ralazine, hydrocortisone, NovoLog, Levemir, lisinopril, metoprolol. SOCIAL HISTORY: He is not a smoker. No alcohol. 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 He lives wit h his elderly parents and has grown children. PHYSICAL EXAMINATION: CURRENT VITAL SIGNS: Blood pressure 178/87, pulse of 57, respirations 17, tem perature 36.7. GENERAL: He is well developed, lying in the bed in no acute distress. NECK: Supple with no bruits or masses. CARDIAC: Regular rate and rhythm. No murmur. NEUROLOGIC: He has an NIH stroke scale of 9. He is awake but a little lethargic. He has a language impairment characterized by very slow production of speech, although he usually eventually gets the right words and is able to repeat and name objects but everything is delayed, consistent with a nonfluent aphasia. I do not de tect any focal facial weakness. Facial sensation is preserved. Extraocular movements are intact. P upils are 3 mm and reactive. Palate elevates symmetrically. Tongue protrudes midline. Hearing is i ntact. Motor exam, reveals 4-/5 strength in the right upper extremity. He has no antigravity streng th in the right lower extremity. Left side is normal strength. Sensation seems to be preserved for touch and pain. Reflexes are 1+ with a right Babinski sign. DIAGNOSTIC STUDIES: As outlined above. CBC was unremarkable. INR of 1. Glucose has been in the lo w 200s. Sinus rhythm on EKG. IMPRESSION: The patient has experienced an acute ischemic infarct, presumably starting early yesterd ay morning when he had acute onset of right leg weakness. He has subsequently developed some weaknes s in the right upper extremity and a little bit of expressive aphasia, likely reflecting the evolving infarct with surrounding edema. There is occlusion of the A-2 segment of the left anterior cerebral artery which may reflect a local thrombosis versus an embolic source. There was no large vessel jimy nosis on the CT angiogram. Echocardiogram is pending. We will try to get further clarification whet her he has or has not actually had atrial fibrillation documented in the past but certainly has coron brook disease. He is not currently in atrial fibrillation, and none has been documented on the monitor . He has been on aspirin, and we will need to consider appropriate changing of the anticoagulant reg imen to either more antiplatelet therapy such as Plavix with aspirin or also consideration of anticoa gulation if we can get clear evidence that atrial fibrillation has been present. Prolonged cardiac m onitoring may be indicated as well. Hyperlipidemia will be assessed for, and statin therapy would be appropriate. He will need Physical, Occupational and Speech Therapy consults and likely inpatient r ehab stay depending on his regain of function. I have discussed the case in detail with Dottie pang NP. The total unit time, with greater than 50% of the time counseling and coordination of care, includes 75 minutes. /[id number]/MODL
[2017-01-04] MEDS ORDERED: BUFFERED SALT EYE WASH,STERILE 118 ML OPHT.BTL EACHEYE PRN (13:34)
[2017-01-04] MEDS ORDERED: D50W 25 GM/50 ML SYR IVP PRN (15:49)
--- NOTE | 2017-01-04 16:09 | ASMTCMCOM ---
CM Note CM Note Notes: Patient is still TBD. He was admitted afer noticing that he was having R Leg weakness. After assessment this morning it was determined that he had had a stroke. C/M will continue to follow for discharge needs. Date Signed: 01/04/2017 04:08 PM Electronically Signed By:LUBNA Clemons
[2017-01-04] MEDS: INSULIN REGULAR HUMAN 100 UNIT/ML SC SCH ×2 (18:42→21:40)
--- NOTE | 2017-01-04 19:27 | GCON ---
[f rep st] CONSULTATION CARDIOLOGY CONSULTATION DATE OF CONSULTATION: 01/03/2017 REFERRING PHYSICIAN: Dottie Way NP INDICATION FOR CONSULT: New onset CVA. HISTORY OF PRESENT ILLNESS: The patient is a pleasant 56-year-old gentleman with a known history of coronary artery disease, diabetes, hypertension, obesity , macular degeneration, and a history of diabetic gastroparesis who had also been recently hospitalized here at [facility] earlier this month with lower extremity cellulitis. He presented to the emergency department early in the morning on January 03 when he woke up at 2:30 in the morning and noticed acute weakness of his right leg. Onset of these symptoms is uncertain secondary to the fact that he woke up with right leg weakness. At the time of presentation at the emergency room, he was able to communicate without difficulty. Initial CT of the head was unremarkable, and he was admitted to the hospitalist service for further evaluation. Of note, during his initial presentation to [facility] Emergency Department, he was found to be hypertensive with blood pressure of 208 /98 with systolic blood pressures ranging in the 160-200 range. This morning, the patient was found to have increasing trouble with speech and verbal expression. Repeat CT of the head demonstrating changes of possible developing infarct in the left frontal region. MRI this morning demonstrated acute stroke due to proximal occlusion of the left anterior cerebral artery about the level of A2 and subsequent ischemia in the entire distribution without mass effect. CT angiogram of the neck did not show any hemodynamically significant stenosis. He did undergo a complete 2D echocardiogram demonstrating normal left and right ventricular function. Bubble study per my review was unremarkable for inter- atrial shunt. Please note that this history of present illness is obtained from reviewing records and reviewing of his studies secondary to the fact that the patient is unable to communicate at this time. In reviewing telemetry, he remains in normal sinus rhythm. I reviewed all telemetry strips since his admission with no evidence of atrial fibrillation. Notes suggest concern for possible history of paroxysmal atrial fibrillation. Will plan to review records from [facility] for history of PAF. I do note he also has a history of aspirin allergy, but he is currently taking aspirin. I would recommend he remain on aspirin secondary to the possibility of re-sensitization to aspirin if discontinued. MEDICATIONS ON ADMISSION: Include hydralazine 10 mg p.o. b.i.d., metoprolol tartrate 50 mg p.o. b.i.d., lisinopril 40 mg daily, diltiazem 180 mg once daily , Zyrtec 10 mg daily, aspirin 243 mg daily, albuterol inhaler 2 puffs inhaled q.4 hours p.r.n., Tylenol 325 mg tablets 2 tablets p.o. q.4 hours p.r.n. ALLERGIES: Allergies to medications include bacitracin, Keflex, clindamycin, codeine, gramicidin, latex, neomycin, NSAID, penicillin, polymyxin B, sulfa and trimethoprim. PAST MEDICAL HISTORY: Coronary artery disease with history of percutaneous coronary intervention, diabetes, hypertension, obesity, asthma, gastroparesis and macular degeneration. SOCIAL HISTORY: He is a nonsmoker. Does not drink alcohol. 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 He lives with his parents. He has 2 grown children. FAMILY HISTORY: Unremarkable. PHYSICAL EXAMINATION: GENERAL: He is nonverbal. He does make eye contact. He is awake and alert but is unresponsive. VITAL SIGNS: Blood pressure 165/84 with a mean of 111, heart rate 67, respiratory rate of 12, oxygen saturation 94 % on 1 L, temperature 36.7. There is no evidence of JVP or carotid bruits. LUNGS: Clear to auscultation anteriorly. CARDIAC: S1, S2. Regular rate and rhythm. No murmurs, rubs, or gallops. ABDOMEN: Soft, nontender, nondistended. EXTREMITIES: There is no evidence of cyanosis, clubbing or edema. DATA: White blood cell count 7.26, hemoglobin 16.7, hematocrit 49.5, platelets of 217. INR 1.04. Sodium 136, potassium 2.9, chloride 101, bicarb 24, BUN 16, creatinine 0.9, glucose 228. Magnesium 1.9. Calcium 9.6. AST 25, ALT 46. Troponin less than 0.012. Total cholesterol 192, triglycerides 199, HDL 41, LDL calculated 112. Telemetry demonstrates sinus rhythm. Echocardiogram: Normal left ventricular function. Negative bubble study. IMPRESSION: 1. Acute ischemic infarct of the left anterior cerebral artery. 2. Expressive aphasia. 3. Hypertension. 4. Coronary artery disease. 5. Diabetes. 6. Possible history of paroxysmal atrial fibrillation. PLAN: 1. Hold antihypertensive medications, permissive hypertension 2. Continue current dose of aspirin. 3. Will review records to determine whether he has a history of paroxysmal atrial fibrillation. 4. Will discuss tomorrow morning with Dr. Nicola Rudolph regarding timing of initiating anticoagulation if it is determined that he had underlying paroxysmal atrial fibrillation. 5. Will coordinate with Dr. Rudolph regarding timing of gradual decreasing systolic blood pressure in the setting of acute infarct. 6. Continue telemetry monitoring. 7. Initiate atorvastatin 40 mg once daily. 8. We will continue to follow along with his care. 45 minutes spent coordinating care /[id number]/MODL MTDD
[2017-01-04] MEDS: ATORVASTATIN CALCIUM 40 MG TAB PO SCH (19:29)
[2017-01-04] MEDS: INSULIN GLARGINE 100 UNITS/ML SYRINGE SC SCH (21:39)
--- NOTE | 2017-01-05 08:41 | PDCARPN ---
Cardiology Progress Note Chief Complaint: New onset of Right Leg weakness, followed by expressive aphasia and evidence of CVA on MRI of brain. Assessment/Plan: Assessment: 1. CVA 2. Essential Hypertension 3. CAD 4. DM 5. NO documentation of Atrial Fibrillation in last office note from [facility] September 2015 Plan: -continue current dose of aspirin -continue atorvastatin 40 mg daily -continue with permissive HTN in setting of CVA -continue telemetry -will follow 20 min spent coordinating care 01/05/17 08:42 Subjective: Mr. Vazquez had an uneventful nights. His neurologic condition remains unchanged with expressive aphasia. He can say "yeah" and that is all. He does respond appropriately and smiled when I mentioned watching football today. I reviewed last office note from [facility] from September 2015. There is no documentation of a history of atrial fibrillation. He was noted to have poorly controlled hypertension and glucose (367). Current SBP in the 190's, permissive hypertension in the setting of CVA. Reviewed/Discussed With: hospitalist, multidisciplinary team Objective: Vital Signs (8 Hrs) Temp Pulse Resp BP Pulse Ox 01/05/17 08:00 36.9 C 65 18 202/102 H 93 01/05/17 04:00 63 190/90 H 95 Intake/Output (24 Hrs) 01/04/17 01/05/17 01/06/17 05:59 05:59 05:59 Intake Total 400 Output Total 300 500 Balance -300 -100 Intake: Oral (ml) 400 Output: Urine (ml) 300 500 Incontinence 500 Urinal 300 Other: Intake Quantity Yes Yes Sufficient Number of Voids Incontinence 2 1 Urinal 1 Number of Stools Incontinence 1 Result Diagrams: 01/03/17 04:00 01/03/17 04:00 Telemetry: NSR in the 60's Echocardiogram: Negative bubble study - Physical Exam Constitutional: obese, other (Aphasic. ) Cardiovascular: regular rate and rhythm, no murmurs, no rubs, no gallops Peripheral Pulses: 2+: carotid (R), carotid (L) Respiratory: clear to auscultate bilat Gastrointestinal: normoactive bowel sounds, no tenderness Skin: no rashes Neurologic: other (aphasic ) ICD10 Worksheet Patient Problems: Problems Problem Status Onset Right leg weakness Acute Acute anterior epistaxis Acute Cellulitis Acute Chest pain Acute Chest pain Acute Coronary angioplasty status Acute Leg wound, left Acute Syncope Acute
--- NOTE | 2017-01-05 09:37 | NEUROPROG ---
Assessment: The patient has experienced left anterior cerebral artery ischemic infarction with evolving aphasia and right judith paresis. The worsening is consistent with suspected edema. He will need extensive, prolonged rehab therapy and rehab should be consulted tomorrow to see how soon he can start inpatient rehab if he qualifies. Cardiology has not found evidence in the medical record of ever actually having atrial fibrillation documented, so we do not have a specific indication for full anticoagulation and will continue antiplatelet therapy. The exact mechanism of his stroke is not certain that he has multiple risk factors. More prolonged cardiac monitoring would be reasonable after discharge. His echocardiogram does not show a definite embolic source and no [id number] shunting is present. I do not think transesophageal echocardiogram is likely to be helpful. I will try to reach his daughter. Subjective: This morning, the patient is having more trouble communicating. He tends to perseverate on the word yeah. He has at least partial understanding and is denying having pain. Objective: Vital Signs Temp Pulse Resp BP Pulse Ox 36.9 C 65 18 202/102 H 93 01/05/17 08:00 01/05/17 08:00 01/05/17 08:00 01/05/17 08:00 01/05/17 08:00 01/04/17 01/05/17 01/06/17 05:59 05:59 05:59 Intake Total 400 Output Total 300 500 Balance -300 -100 PT 13.5 SEC (12.0-15.0) 01/03/17 04:00 INR 1.04 (0.83-1.16) 01/03/17 04:00 He is awake and has unsustained attention but does look toward me and tries to answer questions but has an expressive aphasia with some perseveration. He can repeat numbers and repeat simple sentences. He attempts to follow commands but does not do it quite as accurately as yesterday. He now has flaccid right upper extremity and right lower extremity with really no spontaneous movement on that side tries to use his left arm to lift the right arm. He was not able to name specific objects for me. Allergies/Adverse Reactions: bacitracin zinc [From Neosporin] Allergy (Verified 01/03/17 03:46) cephalexin monohydrate [From Keflex] Allergy (Verified 01/03/17 03:46) clindamycin Allergy (Verified 01/03/17 03:46) codeine [Codeine] Allergy (Verified 01/03/17 03:46) gramicidin D [From Neosporin] Allergy (Verified 01/03/17 03:46) latex [Latex] Allergy (Verified 01/03/17 03:46) mupirocin [From Bactroban] Allergy (Verified 01/03/17 03:46) neomycin sulfate [From Neosporin] Allergy (Verified 01/03/17 03:46) NSAIDS (Non-Steroidal Anti-Inflamma [Nsaids] Allergy (Verified 01/03/17 03:46) peanut Allergy (Verified 01/03/17 03:46) Penicillins Allergy (Verified 11/11/16 12:12) polymyxin B [From Neosporin] Allergy (Verified 11/11/16 12:12) Sulfa (Sulfonamide Antibiotics) Allergy (Verified 11/11/16 12:12) sulfamethoxazole [From Bactrim] Allergy (Verified 11/11/16 12:12) trimethoprim [From Bactrim] Allergy (Verified 11/11/16 12:12)
--- NOTE | 2017-01-05 09:46 | NEUROPROG ---
Assessment: The patient has experienced left anterior cerebral artery ischemic infarction with evolving aphasia and right judith paresis. The worsening is consistent with suspected edema. He will need extensive, prolonged rehab therapy and rehab should be consulted tomorrow to see how soon he can start inpatient rehab if he qualifies. Cardiology has not found evidence in the medical record of ever actually having atrial fibrillation documented, so we do not have a specific indication for full anticoagulation and will continue antiplatelet therapy. The exact mechanism of his stroke is not certain that he has multiple risk factors. More prolonged cardiac monitoring would be reasonable after discharge. His echocardiogram does not show a definite embolic source and no [id number] shunting is present. I do not think transesophageal echocardiogram is likely to be helpful. I will try to reach his daughter. Addendum: The I had a good discussion with his daughter and explained everything that is occurring. She is currently in [place] and will likely be here the morning of Friday the . He is very likely to go to rehab soon and I explained all this to her as well as the expected very prolonged recovery phase. The total unit time is 25 minutes. Objective: Vital Signs Temp Pulse Resp BP Pulse Ox 36.9 C 65 18 202/102 H 93 01/05/17 08:00 01/05/17 08:00 01/05/17 08:00 01/05/17 08:00 01/05/17 08:00 01/04/17 01/05/17 01/06/17 05:59 05:59 05:59 Intake Total 400 Output Total 300 500 Balance -300 -100 PT 13.5 SEC (12.0-15.0) 01/03/17 04:00 INR 1.04 (0.83-1.16) 01/03/17 04:00 Allergies/Adverse Reactions: bacitracin zinc [From Neosporin] Allergy (Verified 01/03/17 03:46) cephalexin monohydrate [From Keflex] Allergy (Verified 01/03/17 03:46) clindamycin Allergy (Verified 01/03/17 03:46) codeine [Codeine] Allergy (Verified 01/03/17 03:46) gramicidin D [From Neosporin] Allergy (Verified 01/03/17 03:46) latex [Latex] Allergy (Verified 01/03/17 03:46) mupirocin [From Bactroban] Allergy (Verified 01/03/17 03:46) neomycin sulfate [From Neosporin] Allergy (Verified 01/03/17 03:46) NSAIDS (Non-Steroidal Anti-Inflamma [Nsaids] Allergy (Verified 01/03/17 03:46) peanut Allergy (Verified 01/03/17 03:46) Penicillins Allergy (Verified 11/11/16 12:12) polymyxin B [From Neosporin] Allergy (Verified 11/11/16 12:12) Sulfa (Sulfonamide Antibiotics) Allergy (Verified 11/11/16 12:12) sulfamethoxazole [From Bactrim] Allergy (Verified 11/11/16 12:12) trimethoprim [From Bactrim] Allergy (Verified 11/11/16 12:12)
--- NOTE | 2017-01-05 10:00 | ASMTCMCOM ---
CM Note CM Note Notes: Pt had CVA, has aphasia and R side weakness, will need rehab. PT/OT/SP recommending inpt rehab. Inpt rehab eval ordered and I lvm for Stephanie at [facility]. Pt normally lives at home w/parents. He has daughter in [place] who spoke w/Dr Rudolph today who will be coming Friday AM. CM w/f. Date Signed: 01/05/2017 10:00 AM Electronically Signed By:Deedee Hoover RN
[2017-01-05] MEDS: ENOXAPARIN 40 MG/0.4 ML SYR SC SCH (10:03)
[2017-01-05] MEDS: INSULIN REGULAR HUMAN 100 UNIT/ML SC SCH ×4 (10:03→21:33)
[2017-01-05] MEDS: CETIRIZINE 10 MG TAB PO SCH (10:04)
[2017-01-05] MEDS: ASPIRIN 81 MG CHEWABLE TAB PO SCH (10:04)
[2017-01-05] MEDS: ATORVASTATIN CALCIUM 40 MG TAB PO SCH (10:04)
--- NOTE | 2017-01-05 12:11 | WOCRNPDOC ---
WOCRN Advanced Assessment Note - Skin Integrity Problem, Advanced Assess Left Lower Leg Venous Stasis Ulcers Dressing Type: Allevyn Life Dressing Description: Shadowed Exudate Amount: Minimal Exudate Color: Yellow Exudate Characteristic(s): Serous Integumentary Issue Intervention: Dressing Changed, Dressing Initialed & Dated Carisa Wound Tissue: Dry, Hair Loss, Scarred (cheloid ) Carisa Wound Swelling: None Wound Bed Color: Brown Wound Bed Constitution: Scab Wound Edges: Attached, Well Defined Site Odor: None Site Measurement - Head-to-Toe Length X Width X Depth (cm): 0.4 x 0.3 x 0 (scabs ) Skin Integrity Problem Comment: Six small, scattered scabs are distributed like satellites in an approximately 8 cm x 8 cm area at the andreina-lateral LLE, surrounding areas of intact, irregularly-shaped cheloid scar tissue. Edema of the lower extremities and ankles is absent at this time, however there is serous drainage on the old dressing and wrinkling of the intact skin suggestive of recent diuresis of the area. Cleansed area using 10 cc sterile, NS and gauze. Applied skin prep to intact, and protected with Allevyn. Resumed bilateral athrombic pumps and heel boots. Report to BLAIR Farah.
[2017-01-05] MEDS: LISINOPRIL 5 MG TAB PO SCH (12:21)
[2017-01-05] MEDS ORDERED: INSULIN GLARGINE 100 UNITS/ML SYRINGE SC SCH ×2 (13:24→21:00)
--- NOTE | 2017-01-05 13:49 | HOSPPROG ---
Hospitalist Progress Note Assessment/Plan: Patient is a 56-year-old male who presented to the emergency room with right leg weakness. when he was at home he got out of bed to go to the bathroom and his legs gave out. He was seen and evaluated in the emergency room for he had a CT scan of his brain which showed no acute intracranial abnormality. A repeat CT scan was performed that noted a possible subacute infarct in the left frontal lobe. * CVA/left anterior cerebral artery/ischemic infarction now with evolving aphasia & Right hemiparesis cont asa, allow permissive htn, statin tele: no afib echo shows borderline LVH, negative bubble study * right leg weakness this was his chief complaint on admit/ due to the above * hypertension blood pressure has been significantly elevated will allow for permissive hypertension in the setting of ischemia started low dose ACEI * coronary artery disease on aspirin and statin therapy *hx of Paroxysmal AFIB this was noted on previous admissions has had none during his stay Dr Stevens reviewed his pmh, none noted or documented *chronic venous insufficiency *Obesity with a BMI of 37 *DM2 A1C pending/ glucoses elevated increase Lantus *Plan: IP rehab ordered, continue PT, OT Subjective: Don only can answer 'yeah' when I ask questions. Objective: Vital Signs Temp Pulse Resp BP Pulse Ox 36.9 C 74 17 161/120 H 92 01/05/17 08:00 01/05/17 12:00 01/05/17 12:00 01/05/17 12:00 01/05/17 12:00 01/04/17 01/05/17 01/06/17 05:59 05:59 05:59 Intake Total 400 Output Total 300 500 Balance -300 -100 PT 13.5 SEC (12.0-15.0) 01/03/17 04:00 INR 1.04 (0.83-1.16) 01/03/17 04:00 - Physical Exam Constitutional: appears nourished, chronically ill appearing, obese Eyes: PERRL Ears, Nose, Mouth, Throat: hearing normal Respiratory: no respiratory distress Skin: warm Musculoskeletal: other (right side flaccid) Neurologic: other (aphasic but answers yeah) ICD10 Worksheet Patient Problems: Problems Problem Status Onset Right leg weakness Acute Acute anterior epistaxis Acute Cellulitis Acute Chest pain Acute Chest pain Acute Coronary angioplasty status Acute Leg wound, left Acute Syncope Acute
[2017-01-06 06:51] LABS: HEMOGLOBIN A1C 12.8 % (4.0-6.0)
[2017-01-06] MEDS: ATORVASTATIN CALCIUM 40 MG TAB PO SCH (08:06)
[2017-01-06] MEDS: ACETAMINOPHEN 325 MG TAB PO PRN (08:06)
[2017-01-06] MEDS: LISINOPRIL 5 MG TAB PO SCH (08:07)
[2017-01-06] MEDS: CETIRIZINE 10 MG TAB PO SCH (08:07)
[2017-01-06] MEDS: ASPIRIN 81 MG CHEWABLE TAB PO SCH (08:07)
[2017-01-06] MEDS: ENOXAPARIN 40 MG/0.4 ML SYR SC SCH (08:11)
[2017-01-06] MEDS: INSULIN REGULAR HUMAN 100 UNIT/ML SC SCH ×4 (08:15→21:03)
--- NOTE | 2017-01-06 09:27 | NEUROPROG ---
Assessment: The patient has experienced left anterior cerebral artery ischemic infarction with evolving aphasia and right judith paresis. The worsening is consistent with suspected edema. He will need extensive, prolonged rehab therapy and rehab should be consulted tomorrow to see how soon he can start inpatient rehab if he qualifies. Cardiology has not found evidence in the medical record of ever actually having atrial fibrillation documented, so we do not have a specific indication for full anticoagulation and will continue antiplatelet therapy. The exact mechanism of his stroke is not certain that he has multiple risk factors. More prolonged cardiac monitoring would be reasonable after discharge. His echocardiogram does not show a definite embolic source and no [id number] shunting is present. I do not think transesophageal echocardiogram is likely to be helpful. I will try to reach his daughter. Addendum: The I had a good discussion with his daughter and explained everything that is occurring. She is currently in [place] and will likely be here the morning of Friday the . He is very likely to go to rehab soon and I explained all this to her as well as the expected very prolonged recovery phase. The total unit time is 25 minutes. 01/06/17: The patient has suffered a left anterior cerebral artery ischemic infarction with expressive aphasia developing and right hemiplegia. The deficits are not improved in the last 24 hours. We will continue anti-platelet therapy. He will need extensive rehabilitation. I spoke to his daughter yesterday and we do anticipate her coming to down late tonight and will see him tomorrow. We continue to hope he can get to rehab as soon as possible. Subjective: The patient is still predominantly aphasic making it difficult for him to communicate effectively. He tends to perseverate on single words. He is not specifically expressing pain. His nurse says that he continues to have trouble with communication but seems to mostly understand. There have been no significant changes in the last 12 hours with the severe deficits on the right side and no other associated symptoms beyond the aphasia and right hemiplegia. Objective: Vital Signs Temp Pulse Resp BP Pulse Ox 37.1 C 103 H 22 H 170/92 H 92 01/06/17 07:55 01/06/17 07:55 01/06/17 07:55 01/06/17 07:55 01/06/17 07:55 01/05/17 01/06/17 01/07/17 05:59 05:59 05:59 Intake Total 400 400 Output Total 500 Balance -100 400 PT 13.5 SEC (12.0-15.0) 01/03/17 04:00 INR 1.04 (0.83-1.16) 01/03/17 04:00 He is awake with unsustained attention and has expressive aphasia but can still follow some commands and repeat some phrases. He has flaccid right hemiplegia with no definite sensory changes, but that is hard to assess for detail. He has right Babinski sign. Allergies/Adverse Reactions: bacitracin zinc [From Neosporin] Allergy (Verified 01/03/17 03:46) cephalexin monohydrate [From Keflex] Allergy (Verified 01/03/17 03:46) clindamycin Allergy (Verified 01/03/17 03:46) codeine [Codeine] Allergy (Verified 01/03/17 03:46) gramicidin D [From Neosporin] Allergy (Verified 01/03/17 03:46) latex [Latex] Allergy (Verified 01/03/17 03:46) mupirocin [From Bactroban] Allergy (Verified 01/03/17 03:46) neomycin sulfate [From Neosporin] Allergy (Verified 01/03/17 03:46) NSAIDS (Non-Steroidal Anti-Inflamma [Nsaids] Allergy (Verified 01/03/17 03:46) peanut Allergy (Verified 01/03/17 03:46) Penicillins Allergy (Verified 11/11/16 12:12) polymyxin B [From Neosporin] Allergy (Verified 11/11/16 12:12) Sulfa (Sulfonamide Antibiotics) Allergy (Verified 11/11/16 12:12) sulfamethoxazole [From Bactrim] Allergy (Verified 11/11/16 12:12) trimethoprim [From Bactrim] Allergy (Verified 11/11/16 12:12)
--- NOTE | 2017-01-06 10:58 | CPEKG ---
Heart Rate: 112 RR Interval: 536 P-R Interval: 160 QRSD Interval: 96 QT Interval: 332 QTC Interval: 453 P Campbell: 51 QRS Campbell: -21 T Wave Campbell: 116 EKG Severity - ABNORMAL ECG - EKG Impression: SINUS TACHYCARDIA EKG Impression: VENTRICULAR PREMATURE COMPLEX EKG Impression: LVH WITH SECONDARY REPOLARIZATION ABNORMALITY EKG Impression: left anterior fascicular block. Compared to previous EKGs Dated 06/08/2016 EKG Impression: lateral T-wave inversions have resolved. Electronically Signed By: Chilo Houser 06-Jan-2017 11:21:20
[2017-01-06] MEDS ORDERED: METOPROLOL TARTRATE 25 MG TAB PO SCH (11:00)
--- NOTE | 2017-01-06 11:02 | PDCARPN ---
Cardiology Progress Note Chief Complaint: CVA Assessment/Plan: Assessment: Cristhian is a 56 y/o M with PMH T2DM (poorly controlled), HTN, dyslipidemia, and CAD with prior interventions to LAD in , obesity, severe YADI with CPAP, and clearly documented PAF from 06/06/16 hospitalization that occurred after his Lexiscan MPI. Presented on 01/03/[address] with RL weakness. Initial CT OK but repeat CT on same day showed subacute infarct L frontal lobe. Brain MRI 01/04 showed acute infarct near corpus callosum. CTA shows patent carotids. #. PAF: seen on 06/06/16 ECG from admission here for syncope was started on Eliquis but current not on it for unclear reasons [id number] of 5 now *htn, vascular disease, diabetes, and now stroke would like to have him resume this when OK with neurology #. CAD: last PCI 2014/ last LHC was 06/07/16 which showed nonflow limiting ISR in LAD and nonflow limiting disease in mRCA started on statin and remains on ASA #. htn: permissive htn per neurology guidelines #. T2DM: appears to be poorly controlled which has been a correction problem per IM management Plan: - Start Eliquis when OK with neurology - Restart Metoprolol at lower dose now 01/06/17 12:50 01/06/17 12:51 Subjective: Pt can only answer "Yeah" or "no." Denies pain, cp, dyspnea. Reviewed/Discussed With: hospitalist Objective: Vital Signs (8 Hrs) Temp Pulse Resp BP Pulse Ox 01/06/17 07:55 98.8 F 103 H 22 H 170/92 H 92 01/06/17 06:50 190/99 H 01/06/17 03:21 97.6 F 88 22 H 190/105 H 91 L Intake/Output (24 Hrs) 01/05/17 01/06/17 01/07/17 05:59 05:59 05:59 Intake Total 400 400 Output Total 500 Balance -100 400 Intake: Oral (ml) 400 400 Output: Urine (ml) 500 Incontinence 500 Other: Intake Quantity Yes Sufficient Number of Voids Incontinence 1 1 Number of Stools Incontinence 1 Result Diagrams: 01/03/17 04:00 01/03/17 04:00 Cardiac Labs: Laboratory Tests 01/03/17 04:00 Troponin I < 0.012 EKG: SR/ST Telemetry: ST - Physical Exam Constitutional: no apparent distress Cardiovascular: regular rate and rhythm, no murmurs Respiratory: clear to auscultate bilat (at bases) Gastrointestinal: normoactive bowel sounds, other (obese) Psychiatric: cooperative ICD10 Worksheet Patient Problems: Problems Problem Status Onset Right leg weakness Acute Stroke due to embolism of left anterior cerebral artery Acute Acute anterior epistaxis Acute Cellulitis Acute Chest pain Acute Chest pain Acute Coronary angioplasty status Acute Leg wound, left Acute Syncope Acute
--- NOTE | 2017-01-06 11:58 | HOSPPROG ---
Hospitalist Progress Note Assessment/Plan: Patient is a 56-year-old male who presented to the emergency room with right leg weakness. when he was at home he got out of bed to go to the bathroom and his legs gave out. He was seen and evaluated in the emergency room for he had a CT scan of his brain which showed no acute intracranial abnormality. A repeat CT scan was performed that noted a possible subacute infarct in the left frontal lobe. * CVA/left anterior cerebral artery/ischemic infarction now with aphasia & Right hemiparesis cont asa, allow permissive htn, statin tele: no afib, But had a run of SVT echo shows borderline LVH, negative bubble study * right leg weakness this was his chief complaint on admit/ due to the above * hypertension blood pressure has been significantly elevated will allow for permissive hypertension in the setting of ischemia started low dose ACEI , resumed lower dose beta nimisha * coronary artery disease on aspirin and statin therapy *tachycardia concern for rebound tachycardia/ had some SVT resumed beta nimisha but lower dose *hx of Paroxysmal AFIB reviewed his care with Taya Singletno and she noted he does have hx of af [id number] score is a 4/high risk / oral anticoagulation is recommended cards recommending eliquis but will hold for now in the setting of acute stroke *chronic venous insufficiency *Obesity with a BMI of 37 *DM2/uncontrolled A1C 12.8/ glucoses elevated increase Lantus again today to 45 units *Plan: IP rehab ordered, continue PT, OT / will discuss w neurology when ok to start Eliquis Subjective: Don is unable to tell me how he is. Objective: Vital Signs Temp Pulse Resp BP Pulse Ox 37.1 C 103 H 22 H 170/92 H 92 01/06/17 07:55 01/06/17 07:55 01/06/17 07:55 01/06/17 07:55 01/06/17 07:55 01/05/17 01/06/17 01/07/17 05:59 05:59 05:59 Intake Total 400 400 Output Total 500 Balance -100 400 PT 13.5 SEC (12.0-15.0) 01/03/17 04:00 INR 1.04 (0.83-1.16) 01/03/17 04:00 - Physical Exam Constitutional: chronically ill appearing, obese Eyes: PERRL Ears, Nose, Mouth, Throat: hearing normal Cardiovascular: regular rate and rhythym, tachycardia Respiratory: no respiratory distress Gastrointestinal: normoactive bowel sounds Skin: warm Musculoskeletal: other (right side flacced) Neurologic: other (alert, aphasic) ICD10 Worksheet Patient Problems: Problems Problem Status Onset Stroke due to embolism of left anterior cerebral artery Acute Chest pain Acute Coronary angioplasty status Acute Acute anterior epistaxis Acute Cellulitis Acute Syncope Acute Chest pain Acute Leg wound, left Acute Right leg weakness Acute
--- NOTE | 2017-01-06 17:09 | ASMTCMCOM ---
CM Note CM Note Notes: [facility] inpatient rehab assessing pt. ULTC 100 started in case pt needs SNF. Spoke w pt son Cristhian who reports he knows no details of pt income, pt dghtr Sherrie would know more. Cristhian knows no definitive MMI diagnosis, would suspect major depression. VM left for dghtranda Balderas to obtain more information. ULTC 100 is not complete and has not been sent to [facility] to date. CM to follow. Date Signed: 01/06/2017 05:09 PM Electronically Signed By:LUBNA Burton
[2017-01-06] MEDS: METOPROLOL TARTRATE 25 MG TAB PO SCH (20:55)
[2017-01-06] MEDS: INSULIN GLARGINE 100 UNITS/ML SYRINGE SC SCH (20:57)
--- NOTE | 2017-01-07 09:11 | HOSPPROG ---
Hospitalist Progress Note Assessment/Plan: Patient is a 56-year-old male who presented to the emergency room with right leg weakness. when he was at home he got out of bed to go to the bathroom and his legs gave out. He was seen and evaluated in the emergency room for he had a CT scan of his brain which showed no acute intracranial abnormality. A repeat CT scan was performed that noted a possible subacute infarct in the left frontal lobe. * CVA/left anterior cerebral artery/ischemic infarction now with aphasia & Right hemiparesis cont asa, allow permissive htn, statin tele: no afib, But had a run of SVT echo shows borderline LVH, negative bubble study will need Eliquis eventually * right leg weakness this was his chief complaint on admit/ due to the above * hypertension blood pressure has been significantly elevated/will slowly increase lisinopril will allow for permissive hypertension in the setting of ischemia resumed lower dose beta nimisha * coronary artery disease on aspirin and statin therapy *tachycardia concern for rebound tachycardia/ had some SVT resumed beta nimisha but lower dose *hx of Paroxysmal AFIB [id number] score is a 4/high risk / oral anticoagulation is recommended cards recommending Eliquis but will hold for now in the setting of acute stroke ? if he has some ST depression/ says he has no cp/ but is mainly aphasic check trop and 12 lead now *chronic venous insufficiency *Obesity with a BMI of 37 *DM2/uncontrolled A1C 12.8/ glucoses elevated increase Lantus to 45 units\\ glucose better this morning *Plan: will discuss w neurology when ok to start Eliquis. compliance monitor shows ? ST depression/ trop negative, ecg pending Subjective: Don can only say "yeah" and "no" Objective: Vital Signs Temp Pulse Resp BP Pulse Ox 36.7 C 74 18 181/107 H 93 01/07/17 07:50 01/07/17 07:50 01/07/17 07:50 01/07/17 07:50 01/07/17 07:50 01/06/17 01/07/17 01/08/17 05:59 05:59 05:59 Intake Total 400 Balance 400 PT 13.5 SEC (12.0-15.0) 01/03/17 04:00 INR 1.04 (0.83-1.16) 01/03/17 04:00 - Physical Exam Constitutional: appears nourished, not in pain, obese Eyes: PERRL Ears, Nose, Mouth, Throat: hearing normal Cardiovascular: regular rate and rhythym Respiratory: no respiratory distress Skin: warm Musculoskeletal: other (right side flaccid/hemiparesis) Neurologic: other (aphasic) Psychiatric: interacting appropriately ICD10 Worksheet Patient Problems: Problems Problem Status Onset Right leg weakness Acute Stroke due to embolism of left anterior cerebral artery Acute Acute anterior epistaxis Acute Cellulitis Acute Chest pain Acute Chest pain Acute Coronary angioplasty status Acute Leg wound, left Acute Syncope Acute
[2017-01-07] MEDS: INSULIN REGULAR HUMAN 100 UNIT/ML SC SCH ×4 (09:12→21:20)
[2017-01-07] MEDS: ACETAMINOPHEN 325 MG TAB PO PRN (09:18)
[2017-01-07] MEDS: CETIRIZINE 10 MG TAB PO SCH (09:19)
[2017-01-07] MEDS: ATORVASTATIN CALCIUM 40 MG TAB PO SCH (09:19)
[2017-01-07] MEDS: ASPIRIN 81 MG CHEWABLE TAB PO SCH (09:19)
--- NOTE | 2017-01-07 09:20 | NEUROPROG ---
Assessment: Stroke with aphasia and right hemiplegia. History of Afib and prior anticoagulation use as per cardiology note. I would recommend we hold Eliquis for another 7 days but then may start. Continue antiplatelet therapy until then. Awaiting Rehab options. Subjective: Pt not able to convey much because of aphasia but still understands questions. Objective: Vital Signs Temp Pulse Resp BP Pulse Ox 36.7 C 74 18 181/107 H 93 01/07/17 07:50 01/07/17 07:50 01/07/17 07:50 01/07/17 07:50 01/07/17 07:50 01/06/17 01/07/17 01/08/17 05:59 05:59 05:59 Intake Total 400 Balance 400 PT 13.5 SEC (12.0-15.0) 01/03/17 04:00 INR 1.04 (0.83-1.16) 01/03/17 04:00 Aphasia with right hemiplegia. Allergies/Adverse Reactions: bacitracin zinc [From Neosporin] Allergy (Verified 01/03/17 03:46) cephalexin monohydrate [From Keflex] Allergy (Verified 01/03/17 03:46) clindamycin Allergy (Verified 01/03/17 03:46) codeine [Codeine] Allergy (Verified 01/03/17 03:46) gramicidin D [From Neosporin] Allergy (Verified 01/03/17 03:46) latex [Latex] Allergy (Verified 01/03/17 03:46) mupirocin [From Bactroban] Allergy (Verified 01/03/17 03:46) neomycin sulfate [From Neosporin] Allergy (Verified 01/03/17 03:46) NSAIDS (Non-Steroidal Anti-Inflamma [Nsaids] Allergy (Verified 01/03/17 03:46) peanut Allergy (Verified 01/03/17 03:46) Penicillins Allergy (Verified 11/11/16 12:12) polymyxin B [From Neosporin] Allergy (Verified 11/11/16 12:12) Sulfa (Sulfonamide Antibiotics) Allergy (Verified 11/11/16 12:12) sulfamethoxazole [From Bactrim] Allergy (Verified 11/11/16 12:12) trimethoprim [From Bactrim] Allergy (Verified 11/11/16 12:12)
[2017-01-07] MEDS: METOPROLOL TARTRATE 25 MG TAB PO SCH ×2 (09:21→21:06)
[2017-01-07] MEDS: ENOXAPARIN 40 MG/0.4 ML SYR SC SCH (09:21)
[2017-01-07] MEDS: LISINOPRIL 5 MG TAB PO SCH (09:27)
--- NOTE | 2017-01-07 09:31 | CPEKG ---
Heart Rate: 78 RR Interval: 769 P-R Interval: 172 QRSD Interval: 94 QT Interval: 352 QTC Interval: 401 P [place]: 44 QRS [place]: -14 T Wave [place]: 173 EKG Severity - ABNORMAL ECG - EKG Impression: SINUS RHYTHM EKG Impression: voltage criteria in lead [address]- T changes in lateral leads EKG Impression: consistent with LVH and strain. EKG Impression: Left anterior fascicular block Electronically Signed By: Chilo Houser 07-Jan-2017 11:21:52
--- NOTE | 2017-01-07 12:27 | PDCARPN ---
Cardiology Progress Note Chief Complaint: CVA Assessment/Plan: Assessment: Cristhian is a 56 y/o M with PMH T2DM (poorly controlled), HTN, dyslipidemia, and CAD with prior interventions to LAD in 2012 and 2014, obesity, severe YADI with CPAP , and clearly documented PAF from 06/06/16 hospitalization that occurred after his Lexiscan MPI. Presented on 01/03/17 with right leg weakness. Initial CT OK but repeat CT on same day showed subacute infarct L frontal lobe. Brain MRI showed acute infarct near corpus callosum. CTA shows patent carotids. #. PAF: seen on 06/06/16 ECG from admission here for syncope was started on Eliquis then but it was discontinued in the outpatient setting [id number] of 5 now *htn, vascular disease, diabetes, and now stroke appreciate Dr. Rudolph' input on timing when to restart eliquis #. CAD: last PCI 2014/ last LHC was 06/07/16 which showed nonflow limiting ISR in LAD and nonflow limiting disease in mRCA started on statin and remains on ASA #. htn: permissive htn per neurology guidance #. T2DM: appears to be poorly controlled which has been a jail problem per IM management Plan: - Start Eliquis when OK with neurology/timed for 7 days from now - Restarted Metoprolol at lower dose now - Will have him resume Hydralazine 01/07/17 12:24 Subjective: Answers "yeah" or "no" as only responses. Is uncomfortable sitting. No cp, dyspnea, back pain. Reviewed/Discussed With: hospitalist Objective: Vital Signs (8 Hrs) Temp Pulse Resp BP Pulse Ox 01/07/17 11:14 99.1 F 77 16 161/93 H 01/07/17 07:50 98.1 F 74 18 181/107 H 93 Intake/Output (24 Hrs) 01/06/17 01/07/17 01/08/17 05:59 05:59 05:59 Intake Total 400 450 Balance 400 450 Intake: Oral (ml) 400 450 Other: Intake Quantity Yes Sufficient Number of Voids Incontinence 1 1 1 Number of Stools Incontinence 1 Bladder Scan Volume (ml) Incontinence 253 Result Diagrams: 01/03/17 04:00 01/03/17 04:00 Cardiac Labs: Cardiac Lab Results (72 Hrs) 09/26/17 09:05 Troponin I < 0.012 Telemetry: SR with short runs of AT - Physical Exam Constitutional: no apparent distress Cardiovascular: regular rate and rhythm, no murmurs Respiratory: clear to auscultate bilat Psychiatric: cooperative ICD10 Worksheet Patient Problems: Problems Problem Status Onset Right leg weakness Acute Stroke due to embolism of left anterior cerebral artery Acute Acute anterior epistaxis Acute Cellulitis Acute Chest pain Acute Chest pain Acute Coronary angioplasty status Acute Leg wound, left Acute Syncope Acute
--- NOTE | 2017-01-07 14:54 | ASMTCMCOM ---
CM Note CM Note Notes: Pt does not qualify at this time for [facility] inpatient rehab recommendation is SNF and if progresses he may be abvle to be considered again for [facility] IPR. ULTC 100 completed w evyr Sherrie help and sent to [facility] [address]. [facility] Data notified to complete [facility] LT jo. Referrals sent to [facility], [facility], [facility] and [facility]. CM to follow. Date Signed: 01/07/2017 02:54 PM Electronically Signed By:LUBNA Burton
--- NOTE | 2017-01-07 17:55 | ECHO ---
[email or web address] [address] [address] Main: [phone] Fax: Transthoracic Echocardiogram Name: PENNY DUARTE MR#: [id number] Study Date: 01/04/2017 Study Time: 12:22 PM Date of : 1960 Age: 56 year(s) Height: ( ) Weight: ( ) BSA: Gender: Male Examination: Limited Echo Indication: Hemorrhagic stroke Echo with Contrast Image Quality: Contrast: Requested by: Betsy Rios BP: 175 mmHg/90 mmHg Heart Rate: Rhythm: Indication: Hemorrhagic stroke Procedure Staff Referring Physician: ISAAC Broom Builder: Dyana Lopez Reading Physician: Lacey Booth Conclusions: Borderline concentric LV hypertrophy. Normal global systolic LV function. An agitated saline study was performed and was negative for intracardiac shunting. Measurements: Chambers Valvular Assessment AV/MV Valvular Assessment TV/PV Normal Normal Normal Name Value Range Name Value Range Name Value Range Continued Measurements: Findings: Left Ventricle: Borderline concentric LV hypertrophy. Normal global systolic LV function. Right Ventricle: Left Atrium: An agitated saline study was performed and was negative for intracardiac shunting. Right Atrium: An agitated saline study was performed and was negative for intracardiac shunting. Mitral Valve: Aortic Valve: Tricuspid Valve: Pulmonic Valve: Patient: PENNY DUARTE Study Date: 01/04/2017 Page 1 of 2 12:22 PM Great Vessels: Pericardium: There is pericardial fat. (No Signature Object) Patient: PENNY DUARTE Study Date: 01/04/2017 Page 2 of 2 12:22 PM [id number]
[2017-01-07] MEDS: hydrALAZINE 10 MG TAB PO SCH (21:05)
[2017-01-07] MEDS: INSULIN GLARGINE 100 UNITS/ML SYRINGE SC SCH (21:06)
--- NOTE | 2017-01-08 08:19 | NEUROPROG ---
Assessment: Total unit time of 25 minutes with greater than 50% of the time counseling and coordination of care and reviewing everything with his daughter. He has severe deficits of right-sided weakness and expressive language difficulties with some very mild improvements. We suspect probably a cardioembolic source but with the size of the stroke, we will wait another week before initiating full anticoagulation with Eliquis. The patient's level of deficit is going to require retirement facility before inpatient rehab which he will hopefully qualify for soon. Subjective: The patient says that he is not having any pain. He is stable and having some improved language over the last 12 hours according to his daughter who is now here. There is severe right-sided weakness which has not changed. Objective: Vital Signs Temp Pulse Resp BP Pulse Ox 36.5 C 86 21 H 164/100 H 95 01/08/17 07:54 01/08/17 07:54 01/08/17 07:54 01/08/17 07:54 01/08/17 07:54 01/07/17 01/08/17 01/09/17 05:59 05:59 05:59 Intake Total 690 Balance 690 PT 13.5 SEC (12.0-15.0) 01/03/17 04:00 INR 1.04 (0.83-1.16) 01/03/17 04:00 Aphasic speech is about the same but a little better language skill. He has a tendency to perseverate. There is still right hemiplegia. Allergies/Adverse Reactions: bacitracin zinc [From Neosporin] Allergy (Verified 01/03/17 03:46) cephalexin monohydrate [From Keflex] Allergy (Verified 01/03/17 03:46) clindamycin Allergy (Verified 01/03/17 03:46) codeine [Codeine] Allergy (Verified 01/03/17 03:46) gramicidin D [From Neosporin] Allergy (Verified 01/03/17 03:46) latex [Latex] Allergy (Verified 01/03/17 03:46) mupirocin [From Bactroban] Allergy (Verified 01/03/17 03:46) neomycin sulfate [From Neosporin] Allergy (Verified 01/03/17 03:46) NSAIDS (Non-Steroidal Anti-Inflamma [Nsaids] Allergy (Verified 01/03/17 03:46) peanut Allergy (Verified 01/03/17 03:46) Penicillins Allergy (Verified 11/11/16 12:12) polymyxin B [From Neosporin] Allergy (Verified 11/11/16 12:12) Sulfa (Sulfonamide Antibiotics) Allergy (Verified 11/11/16 12:12) sulfamethoxazole [From Bactrim] Allergy (Verified 11/11/16 12:12) trimethoprim [From Bactrim] Allergy (Verified 11/11/16 12:12)
--- NOTE | 2017-01-08 08:41 | HOSPPROG ---
Hospitalist Progress Note Assessment/Plan: Patient is a 56-year-old male who presented to the emergency room with right leg weakness. when he was at home he got out of bed to go to the bathroom and his legs gave out. He was seen and evaluated in the emergency room for he had a CT scan of his brain which showed no acute intracranial abnormality. A repeat CT scan was performed that noted a possible subacute infarct in the left frontal lobe. * CVA/left anterior cerebral artery/ischemic infarction now with aphasia (starting to talk a bit more) & Right hemiparesis cont asa, allowed for permissive htn intially, statin tele: no afib, But had a run of SVT echo shows borderline LVH, negative bubble study will need Eliquis eventually/ in the next week/ this has been ordered * right leg weakness this was his chief complaint on admit/ due to the above * hypertension blood pressure has been significantly elevated/will slowly increase lisinopril resumed lower dose beta nimisha other home medications have not been added * coronary artery disease on aspirin and statin therapy *tachycardia concern for rebound tachycardia/ had some SVT resumed beta nimisha but lower dose *hx of Paroxysmal AFIB [id number] score is a 4/high risk / oral anticoagulation is recommended cards recommending Eliquis but will hold for now in the setting of acute stroke ? if he has some ST depression/ troponin is negative, has no chest pain *chronic venous insufficiency *Obesity with a BMI of 37 *DM2/uncontrolled A1C 12.8/ glucoses elevated increase Lantus to 45 units morning glucose better but during day, glucoses are elevated/ will increase to high dose sliding scale *Plan: Case management is looking for placement at this time. He does not meet requirement for inpatient rehabilitation. Please note on discharge many of his home medications have been changed. He will be on Eliquis within the next 6 days, lisinopril and metoprolol are both at lower doses.He has not been resumed on his other blood pressure medications. CPAP has been ordered p.r.n. Subjective: patient is seen that he is not having any pain. Objective: Vital Signs Temp Pulse Resp BP Pulse Ox 36.5 C 86 21 H 164/100 H 95 01/08/17 07:54 01/08/17 07:54 01/08/17 07:54 01/08/17 07:54 01/08/17 07:54 01/07/17 01/08/17 01/09/17 05:59 05:59 05:59 Intake Total 690 Balance 690 PT 13.5 SEC (12.0-15.0) 01/03/17 04:00 INR 1.04 (0.83-1.16) 01/03/17 04:00 - Physical Exam Constitutional: not in pain, chronically ill appearing, obese Eyes: PERRL, scleral injection Ears, Nose, Mouth, Throat: hearing normal Cardiovascular: regular rate and rhythym Respiratory: no respiratory distress Gastrointestinal: normoactive bowel sounds Musculoskeletal: other ( right-sided flaccid) Neurologic: other ( alert but has still profound aphasia. Can repeat some words when they are said to him) Psychiatric: interacting appropriately ICD10 Worksheet Patient Problems: Problems Problem Status Onset Right leg weakness Acute Stroke due to embolism of left anterior cerebral artery Acute Acute anterior epistaxis Acute Cellulitis Acute Chest pain Acute Chest pain Acute Coronary angioplasty status Acute Leg wound, left Acute Syncope Acute
[2017-01-08] MEDS: INSULIN REGULAR HUMAN 100 UNIT/ML SC SCH ×4 (09:12→22:06)
[2017-01-08] MEDS: CETIRIZINE 10 MG TAB PO SCH (09:13)
[2017-01-08] MEDS: ATORVASTATIN CALCIUM 40 MG TAB PO SCH (09:13)
[2017-01-08] MEDS: METOPROLOL TARTRATE 25 MG TAB PO SCH ×2 (09:13→21:54)
[2017-01-08] MEDS: hydrALAZINE 10 MG TAB PO SCH ×2 (09:14→21:55)
[2017-01-08] MEDS: ENOXAPARIN 40 MG/0.4 ML SYR SC SCH (09:15)
[2017-01-08] MEDS: LISINOPRIL 5 MG TAB PO SCH (09:15)
[2017-01-08] MEDS: ASPIRIN 81 MG CHEWABLE TAB PO SCH (09:15)
--- NOTE | 2017-01-08 10:04 | ASMTCMCOM ---
CM Note CM Note Notes: Annabelle with [facility] [phone] assessed pt, he will trigger level II PASRR. [facility] unable to accept due to MMI. Date Signed: 01/08/2017 10:03 AM Electronically Signed By:LUBNA Burton
[2017-01-08] MEDS: TETRAHYDROZOLINE 0.05% 15 ML OPHT.BTL EACHEYE PRN ×2 (10:23→17:08)
[2017-01-08] MEDS ORDERED: D50W 25 GM/50 ML SYR IVP PRN (15:08)
--- NOTE | 2017-01-08 16:13 | ASMTCMCOM ---
CM Note CM Note Notes: Potential placement option is [facility], Imani urrutia [facility] will sit w pt dghtr to fill out disability jo then assess further. Still assessing are [facility], and new referral sent to [facility]. [facility] unable to accept. CM to follow. Date Signed: 01/08/2017 04:12 PM Electronically Signed By:LUBNA Burton
[2017-01-08] MEDS: INSULIN GLARGINE 100 UNITS/ML SYRINGE SC SCH (21:57)
[2017-01-09] MEDS: hydrALAZINE 10 MG TAB PO PRN (03:46)
--- NOTE | 2017-01-09 07:55 | NEUROPROG ---
Assessment: Total unit time of 25 minutes with greater than 50% of the time counseling and coordination of care and reviewing everything with his daughter. He has severe deficits of right-sided weakness and expressive language difficulties with some very mild improvements. We suspect probably a cardioembolic source but with the size of the stroke, we will wait another week before initiating full anticoagulation with Eliquis. The patient's level of deficit is going to require long term facility before inpatient rehab which he will hopefully qualify for soon. 01/09/17: Pt with severe deficits still but making some very mild improvements from left KAVEH stoke. I will sign off. Awaiting placement. Let us know if there are any questions. Dr. Espinoza taking over tomorrow. Subjective: No new complaints Objective: Vital Signs Temp Pulse Resp BP Pulse Ox 36.5 C 66 18 161/100 H 91 L 01/09/17 04:00 01/09/17 04:00 01/09/17 04:00 01/09/17 04:00 01/09/17 04:00 01/08/17 01/09/17 01/10/17 05:59 05:59 05:59 Intake Total 690 550 Balance 690 550 PT 13.5 SEC (12.0-15.0) 01/03/17 04:00 INR 1.04 (0.83-1.16) 01/03/17 04:00 Aphasia but a little better today with some more logical words and partial sentences. Trace movement in the right hand. Allergies/Adverse Reactions: bacitracin zinc [From Neosporin] Allergy (Verified 01/03/17 03:46) cephalexin monohydrate [From Keflex] Allergy (Verified 01/03/17 03:46) clindamycin Allergy (Verified 01/03/17 03:46) codeine [Codeine] Allergy (Verified 01/03/17 03:46) gramicidin D [From Neosporin] Allergy (Verified 01/03/17 03:46) latex [Latex] Allergy (Verified 01/03/17 03:46) mupirocin [From Bactroban] Allergy (Verified 01/03/17 03:46) neomycin sulfate [From Neosporin] Allergy (Verified 01/03/17 03:46) NSAIDS (Non-Steroidal Anti-Inflamma [Nsaids] Allergy (Verified 01/03/17 03:46) peanut Allergy (Verified 01/03/17 03:46) Penicillins Allergy (Verified 11/11/16 12:12) polymyxin B [From Neosporin] Allergy (Verified 11/11/16 12:12) Sulfa (Sulfonamide Antibiotics) Allergy (Verified 11/11/16 12:12) sulfamethoxazole [From Bactrim] Allergy (Verified 11/11/16 12:12) trimethoprim [From Bactrim] Allergy (Verified 11/11/16 12:12)
[2017-01-09] MEDS: LISINOPRIL 5 MG TAB PO SCH (08:36)
[2017-01-09] MEDS: METOPROLOL TARTRATE 25 MG TAB PO SCH ×2 (08:37→21:49)
[2017-01-09] MEDS: INSULIN REGULAR HUMAN 100 UNIT/ML SC SCH ×4 (08:40→21:47)
[2017-01-09] MEDS: CETIRIZINE 10 MG TAB PO SCH (09:17)
[2017-01-09] MEDS: ASPIRIN 81 MG CHEWABLE TAB PO SCH (09:18)
[2017-01-09] MEDS: ATORVASTATIN CALCIUM 40 MG TAB PO SCH (09:18)
[2017-01-09] MEDS: ENOXAPARIN 40 MG/0.4 ML SYR SC SCH (09:18)
--- NOTE | 2017-01-09 10:21 | PDCARPN ---
Cardiology Progress Note Assessment/Plan: Assessment/plan: A 56-year-old male with known coronary disease status post stenting in 2014 to the LAD. His last angiogram was in May of this year and showed no flow-limiting stenoses. He also has hypertension, diabetes, and 1 episode of atrial fibrillation that occurred during a nuclear stress test several months ago. He was admitted on January 03 with left anterior cerebral artery territory stroke. This may be cardioembolic in origin. He has only had 2 very brief episodes of possible atrial flutter on telemetry, otherwise has been sinus rhythm. He has been followed by Dr. Rudolph and Internal Medicine. He is making some slow improvement in speech fluency. 1. Stroke. Possibly cardioembolic. Will be a candidate for Eliquis therapy to be started on January 14, per Neurology. Continue aspirin for coronary disease. Continue statin and blood pressure management. Will discuss with Dr. Rudolph blood pressure goals in the setting of his recent stroke. 2. Hypertension: Still quite high. Will likely need up titration of lisinopril and probably metoprolol. 3. Coronary disease: This is stable. 2-troponins upon admission. No angina. 4. Atrial arrhythmias: He did, by report, have brief atrial fibrillation after nuclear stress test in the past and may have had atrial flutter here in the hospital, very briefly. Start Eliquis as detailed per 1. 5. Diabetes: Per Internal Medicine. 20 minutes spent in chart review, patient evaluation. 01/09/17 10:22 Subjective: Don reports tail bone pain. No chest pain, dyspnea or headache. He does feel that he is improving. He is eating all right. Reviewed/Discussed With: family Objective: Vital Signs (8 Hrs) Temp Pulse Resp BP Pulse Ox 01/09/17 08:00 37.1 C 75 20 180/104 H 90 L 01/09/17 04:00 36.5 C 66 18 161/100 H 91 L 01/09/17 03:46 196/82 H Intake/Output (24 Hrs) 01/08/17 01/09/17 01/10/17 05:59 05:59 05:59 Intake Total 690 550 Balance 690 550 Intake: Oral (ml) 690 550 Other: Intake Quantity Yes Yes Sufficient Number of Voids Incontinence 3 1 Speech is not completely fluent, but seems to be improving Regular rate and rhythm without murmur rub or gallop Lungs clear auscultation without wheeze rhonchi or rales Extremities are wrapped. No edema. Result Diagrams: 01/03/17 04:00 01/03/17 04:00 Cardiac Labs: Cardiac Lab Results (72 Hrs) 01/07/17 09:05 Troponin I < 0.012 EKG: Reviewed from admission: Sinus rhythm with diffuse ST T wave abnormalities, LVH Telemetry: Sinus rhythm. 2 very brief episodes of possible atrial flutter over the past few days. Echocardiogram: Limited echocardiogram from the 20 second is reviewed and shows no intra cardiac shunting ICD10 Worksheet Patient Problems: Problems Problem Status Onset Stroke due to embolism of left anterior cerebral artery Acute Chest pain Acute Coronary angioplasty status Acute Acute anterior epistaxis Acute Cellulitis Acute Syncope Acute Chest pain Acute Leg wound, left Acute Right leg weakness Acute
[2017-01-09] MEDS ORDERED: LISINOPRIL 10 MG TAB PO SCH (10:30)
--- NOTE | 2017-01-09 13:45 | HOSPPROG ---
Hospitalist Progress Note Assessment/Plan: Patient is a 56-year-old male who presented to the emergency room with right leg weakness. At home he got out of bed to go to the bathroom and his legs gave out. He was seen and evaluated in the emergency room for he had a CT scan of his brain which showed no acute intracranial abnormality. A repeat CT scan was performed that noted a possible subacute infarct in the left frontal lobe. First encounter, chart reviewed. * CVA/left anterior cerebral artery/ischemic infarction now with aphasia & Right hemiparesis cont asa, allowed for permissive htn intially, statin tele: no afib, But had a run of SVT echo shows borderline LVH, negative bubble study will need Eliquis eventually, start Jan 14 * right leg weakness this was his chief complaint on admit/ due to the above * hypertension blood pressure has been significantly elevated/meds per cardiology resumed lower dose beta nimisha * coronary artery disease on aspirin and statin therapy *tachycardia concern for rebound tachycardia/ had some SVT resumed beta nimisha but lower dose *hx of Paroxysmal AFIB [id number] score is a 4/high risk / oral anticoagulation is recommended cards recommending Eliquis but will hold for now in the setting of acute stroke *chronic venous insufficiency *Obesity with a BMI of 37 *DM2/uncontrolled A1C 12.8/ glucoses elevated increase Lantus to 45 units morning glucose better but during day, glucoses are elevated/ will increase to high dose sliding scale *Plan: Case management is looking for placement at this time. [facility]. He does not meet requirement for inpatient rehabilitation. Please note on discharge many of his home medications have been changed. He will be on Eliquis within the next 6 days, lisinopril and metoprolol are both at lower doses. CPAP has been ordered p.r.n. D/W CM and pt daughter. Subjective: up in chair. No specific issues. Daughter at bedside. Objective: Vital Signs Temp Pulse Resp BP Pulse Ox 36.8 C 65 21 H 160/89 H 94 01/09/17 12:00 01/09/17 12:00 01/09/17 12:00 01/09/17 12:00 01/09/17 12:00 01/08/17 01/09/17 01/10/17 05:59 05:59 05:59 Intake Total 690 550 Balance 690 550 PT 13.5 SEC (12.0-15.0) 01/03/17 04:00 INR 1.04 (0.83-1.16) 01/03/17 04:00 - Physical Exam Constitutional: not in pain, chronically ill appearing, obese Eyes: PERRL, anicteric sclera, EOMI Ears, Nose, Mouth, Throat: moist mucous membranes, hearing normal, ears appear normal Cardiovascular: No JVD, No tachycardia, No bradycardia Respiratory: no respiratory distress, no rales or rhonchi, reduced air movement Gastrointestinal: No tenderness, No ascites, No guarding Skin: warm, normal color, No erythema Musculoskeletal: no joint effusions, pain with ROM, generalized weakness, No normal joint ROM Neurologic: weakness, No AAOx3 Psychiatric: not anxious, poor insight, poor judgement, poor memory ICD10 Worksheet Patient Problems: Problems Problem Status Onset Stroke due to embolism of left anterior cerebral artery Acute Chest pain Acute Coronary angioplasty status Acute Acute anterior epistaxis Acute Cellulitis Acute Syncope Acute Chest pain Acute Leg wound, left Acute Right leg weakness Acute
[2017-01-09] MEDS: hydrALAZINE 10 MG TAB PO SCH ×2 (13:55→21:00)
--- NOTE | 2017-01-09 15:28 | ASMTCMCOM ---
CM Note CM Note Notes: Pt accepted at [facility]. Imani urrutia [facility] met w dghtr to complete [place] Medicaid Dis[place] jo. Linda urrutia [facility] updated pt can d/c tomorrow, Linda sent ULTC to . Date Signed: 01/09/2017 03:27 PM Electronically Signed By:LUBNA Burton
[2017-01-09] MEDS: TETRAHYDROZOLINE 0.05% 15 ML OPHT.BTL EACHEYE PRN (18:16)
[2017-01-09] MEDS: INSULIN GLARGINE 100 UNITS/ML SYRINGE SC SCH (21:47)
[2017-01-10 00:03] VITALS: TEMP 98
[2017-01-10] MEDS: hydrALAZINE 10 MG TAB PO PRN (04:53)
[2017-01-10] MEDS: ASPIRIN 81 MG CHEWABLE TAB PO SCH (08:13)
[2017-01-10] MEDS: CETIRIZINE 10 MG TAB PO SCH (08:14)
[2017-01-10] MEDS: ATORVASTATIN CALCIUM 40 MG TAB PO SCH (08:14)
[2017-01-10] MEDS: hydrALAZINE 10 MG TAB PO SCH (08:15)
[2017-01-10] MEDS: METOPROLOL TARTRATE 25 MG TAB PO SCH (08:16)
[2017-01-10] MEDS: ENOXAPARIN 40 MG/0.4 ML SYR SC SCH (08:17)
[2017-01-10] MEDS: INSULIN REGULAR HUMAN 100 UNIT/ML SC SCH ×2 (08:24→12:22)
[2017-01-10] MEDS: TETRAHYDROZOLINE 0.05% 15 ML OPHT.BTL EACHEYE PRN ×2 (08:25→14:37)
[2017-01-10] MEDS ORDERED: LISINOPRIL 20 MG TAB PO SCH (09:00)
[2017-01-10 10:50] VITALS: BP 148/87
--- NOTE | 2017-01-10 11:48 | PDIAF ---
- Diagnosis Diagnosis: cva Code Status: Full Code - Medication Management Discharge Medications: Medications to Continue on Transfer Acetaminophen [Tylenol 325mg (*)] 650 mg PO Q4HRS PRN tab 12/19/16 [Last Taken 01/02/17] Albuterol [Proventil Inhaler HFA (*)] 2 puffs IH Q4 PRN 12/19/16 [Last Taken ] Aspirin [Aspirin 81mg (*)] 243 mg PO DAILY 12/19/16 [Last Taken 01/02/17] Cetirizine [ZyrTEC 10 mg (*)] 10 mg PO DAILY 12/19/16 [Last Taken 01/02/17] Hydrocortisone 1% [Hydrocortisone 1% cream (*)] 1 jo TP BID PRN cream [Last Taken 01/02/17] Insulin Aspart [novoLOG] 5 unit SC TIDMEAL 12/19/16 [Last Taken 01/02/17] Insulin Detemir [Levemir] 35 units SC HS 12/19/16 [Last Taken 01/02/17] hydrALAZINE [Apresoline 10 mg (*)] 10 mg PO BID 12/19/16 [Last Taken 01/02/17] Apixaban [Eliquis] 5 mg PO BID tab 01/10/17 [Last Taken Unknown] Atorvastatin Calcium [Lipitor 40 mg (*)] 40 mg PO DAILY tab 01/10/17 [Last Taken Unknown] Lisinopril [Zestril 20 mg (*)] 20 mg PO DAILY tab 01/10/17 [Last Taken Unknown] Metoprolol Tartrate [Lopressor 25 mg (*)] 12.5 mg PO BID tab 01/10/17 [Last Taken Unknown] Tetrahydrozoline 0.05% [Visine (*)] 1 drops EACHEYE QID PRN opht.btl 01/10/17 [ Last Taken Unknown] hydrALAZINE [Apresoline 10 mg (*)] 10 mg PO QID PRN tab 01/10/17 [Last Taken Unknown] Discharge Medications: Refer to the Discharge Home Medication list for PRN reason. PICC Care - Routine: N/A - Orders Services needed: Registered Nurse, Physical Therapy, Occupational Therapy, Speech Language Pathologist Diet Texture: Regular Texture Diet, Thin Liquids, Meds Whole w/Liquids - Follow Up Care Current Providers and Referrals: Patient,NotPresent [Unknown] - As per Instructions
[2017-01-10 11:52] VITALS: PULSE 64; RESP 20; O2SAT 92
--- NOTE | 2017-01-10 15:50 | ASDISCHSUM ---
Discharge Information Plan Status:SNF Medically Cleared to Leave: Discharge Date:01/10/2017 03:34 PM D/C Disposition:Halfway Facility ADT D/C Disposition:Halfway Facility Projected Discharge Date:01/10/2017 11:00 AM Transportation at D/C:ALS/BLS Discharge Delay Reason: Follow-Up Date:01/10/2017 11:00 AM Discharge Slot: Final Diagnosis: Placement Information Referral Type:*Penitentiary/SNF Referral ID:[id number] Provider Name:[facility] Address 1:[address] Address 2: City:[place] Selection Factors: State:[place] Patient Contact Information Contact Name:JAYLENE Relationship:Daughter Address: Work Phone: City: [facility] Phone: [facility] Code:[place] Email: Financial Information Financial Class: Primary Plan Desc:MEDICA[place] Primary Plan Number:[id number] Secondary Plan Desc: Secondary Plan Number: Assessment Information [facility] CM Progress Note CM Note CM Note Notes: Patient is still TBD. He was admitted afer noticing that he was having R Leg weakness. After assessment this morning it was determined that he had had a stroke. C/M will continue to follow for discharge needs. Date Signed: 01/04/2017 04:08 PM Electronically Signed By:LUBNA Clemons [facility] CM Progress Note CM Note CM Note Notes: Pt had CVA, has aphasia and R side weakness, will need rehab. PT/OT/SP recommending inpt rehab. Inpt rehab osirisal ordered and I lvm for Stephanie at [facility]. Pt normally lives at home w/parents. He has daughter in [place] who spoke w/Dr Rudolph today who will be coming Friday AM. CM w/f. Date Signed: 01/05/2017 10:00 AM Electronically Signed By:Deedee Hoover RN [facility] CM Progress Note CM Note CM Note Notes: [facility] inpatient rehab assessing pt. ULTC 100 started in case pt needs SNF. Spoke w pt son Cristhian who reports he knows no details of pt income, pt dghtkrystyna Balderas would know more. Cristhian knows no definitive MMI diagnosis, would suspect major depression. VM left for kolby Balderas to obtain more information. ULTC 100 is not complete and has not been sent to [facility] to date. CM to follow. Date Signed: 01/06/2017 05:09 PM Electronically Signed By:LUBNA Burton [facility] CM Progress Note CM Note CM Note Notes: Pt does not qualify at this time for [facility] inpatient rehab recommendation is SNF and if progresses he may be abvle to be considered again for [facility] IPR. ULTC 100 completed w kolby Balderas help and sent to [facility]. Med Data notified to complete [facility] jo. Referrals sent to [facility], [facility] and [facility]. CM to follow. Date Signed: 01/07/2017 02:54 PM Electronically Signed By:LUBNA Burton [facility] CM Progress Note CM Note CM Note Notes: Annabelle with [facility] [phone] assessed pt, he will trigger level II PASRR. [facility] unable to accept due to MMI. Date Signed: 01/08/2017 10:03 AM Electronically Signed By:LUBNA Burton [facility] CM Progress Note CM Note CM Note Notes: Potential placement option is [facility], Imani Gonzalez will sit w pt dghtr to fill out disability jo then assess further. Still assessing are [facility], and new referral sent to [facility] unable to accept. CM to follow. Date Signed: 01/08/2017 04:12 PM Electronically Signed By:LUBNA Burton [facility] CM Progress Note CM Note CM Note Notes: Pt accepted at [facility]. Imani Gonzalez met w dghtr to complete [place] jo. Linda PERDOMO updated pt can d/c tomorrow, Linda sent ULTC to . Date Signed: 01/09/2017 03:27 PM Electronically Signed By:LUBNA Burton [facility] CM Progress Note CM Note CM Note Notes: Pt medically stable for d/c to [facility]. Dgr updated. Stretcher transport [id number]. Orders sent. RN to call report. Date Signed: 01/10/2017 03:49 PM Electronically Signed By:LUBNA Burton Intervention Information
--- NOTE | 2017-01-10 15:50 | ASMTCMCOM ---
CM Note CM Note Notes: Pt medically stable for d/c to [facility]. Dghtr updated. Stretcher transport [id number]. Orders sent. RN to call report. Date Signed: 01/10/2017 03:49 PM Electronically Signed By:LUBNA Burton
--- NOTE | 2017-01-10 18:52 | GDS ---
[f rep st] DISCHARGE SUMMARY DISCHARGE DIAGNOSES: 1. Left anterior cerebral artery ischemic infarct. 2. Right leg weakness. 3. Hypertension. 4. History of coronary artery disease. 5. Tachycardia. 6. History of paroxysmal atrial fibrillation. CONSULTATIONS: 1. Neurology. 2. Cardiology. PHYSICAL EXAM: GENERAL: The patient is alert. VITAL SIGNS: Afebrile at 36.7, pulse is 64, respira tory rate is 20. Blood pressure is 148/87. He is saturating 92% on room air. I have seen and evalu ated the patient on the day of discharge. HOSPITAL COURSE: The patient is a 56-year-old male who presented to the emergency room with complain ts of awakening with right leg weakness. He was evaluated and diagnosed with: 1. Left anterior cerebral artery ischemic infarct. During this hospitalization, he was consulted on by Cardiology as well as Neurology. His symptoms are significantly improving, he does have some con tinued right weakness as well as intermittent aphasia. He will require long-term rehabilitatio n. 2. Right leg weakness. This is still ongoing at the time of disposition. 3. Hypertension. His blood pressure has been elevated during this hospitalization, mildly difficult to manage with medications. We have had Cardiology consult on him and make recommendations during t his hospitalization. His blood pressure is stable at the time of disposition. He will continue outp atient followup and adjustments in his beta nimisha as well as lisinopril can be performed in the out patient setting. 4. History of coronary artery disease. He is continued on his statin as well as aspirin. 5. History of paroxysmal atrial fibrillation. The patient has been initiated on Eliquis and will co ntinue this outside the hospital. 6. Diabetes mellitus type 2. This is with poor control. Hopefully, this can be managed more approp riately in the setting of long-term. PENDING STUDIES: There are no pending studies. DISPOSITION: The patient will be discharged to long-term facility for further rehabilitation a nd management. Followup will be with his primary care physician, as well as Dr. Rudolph and [facility]. DISCHARGE MEDICATIONS: Please refer to EMR form. His home medications have been adjusted during thi s hospitalization. I have reviewed the patient's disposition with the major case detective. I spent greater than 35 minutes in the care, coordination, and management of his discharge. /[id number]/MODL
[2017-01-14] MEDS ORDERED: APIXABAN 5 MG TAB PO SCH (09:00)
== END 2017-01-10 15:34 | DRG 65 ==
LOC: EDUNIT# → INTOOBSV 05:42 → F3N 12:25 → OBSVTOIN 16:30
PROVIDERS: ADMIT Family Medicine; ATTEND Internal Medicine
DX: I63.522 Cerebral infarction due to unspecified occlusion or stenosis of left anterior cerebral artery (principal); G81.91 Hemiplegia, unspecified affecting right dominant side; I10 Essential (primary) hypertension; I25.10 Atherosclerotic heart disease of native coronary artery without angina pectoris; R00.0 Tachycardia, unspecified; I48.0 Paroxysmal atrial fibrillation; E11.9 Type 2 diabetes mellitus without complications; R47.01 Aphasia; Z95.5 Presence of coronary angioplasty implant and graft; Z68.37 Body mass index [BMI] 37.0-37.9, adult; G47.33 Obstructive sleep apnea (adult) (pediatric)
CPT/HCPCS: 92507-GN; 92523-GN; 92526-GN; 92610-GN; 96374; 97112-GO; 97112-GP; 97162-GP; 97167-GO; 97530-GO; 97530-GP; 97535-GO; J1650; J1815; J2405; Q9967

== ENCOUNTER 2017-01-17 13:19 | Emergency (ER) | payer MEDICAID ==
--- NOTE | 2017-01-17 13:16 | EDPHY ---
H & P HPI/ROS: CHIEF COMPLAINT: Right-sided weakness and facial droop, aphasia, stoke alert HISTORY OF PRESENT ILLNESS: The patient is a 57 y/o male with a history of an ischemic infarct one week ago arriving via EMS as a stroke alert after [facility] staff found him with acutely worsened right-sided weakness and facial droop. He has a history of ischemic infarct one week ago, hypertension, diabetes, and coronary artery disease s/p stenting. Today he was reportedly found with a worsened right-sided facial droop, right-sided weakness, and aphasia. EMS reports his condition is improving. EMS could not identify any blood thinners in his medication list. He was sent directly to CT on arrival. Information in the HPI obtained from EMS due to patient's condition. REVIEW OF SYSTEMS: A ten point review of systems was performed and is negative with the exception of the items mentioned in the HPI. Past medical history: 1. Acute ischemic stroke 01/03 2. Hypertension 3. Coronary artery disease status post stenting 4. Type 2 diabetes 5. Obesity 6. Aspirin allergy 7. macular degeneration 8. Diabetic gastroparesis Past surgical history: Denies Family history: Non-contributory. Social history: Lives at [facility], no smoking, no alcohol, father to two grown children Prior medical records reviewed including admission 01/03/17. General Appearance: Alert. Vital signs reviewed. Blood pressure 136/85. Head: Normocephalic atraumatic. Eyes: Pupils equal and round, no conjunctival injection, no discharge. Anicteric. ENT, Mouth: Mucous membranes are moist, no oropharyngeal erythema or edema. Neck: No lymphadenopathy, supple. Respiratory: Lungs are clear to auscultation; no wheezes, rales, or rhonchi. Cardiovascular: Regular rate and rhythm; no murmur, rub, or gallop. Gastrointestinal: Abdomen is soft and nontender, no masses or organomegaly, bowel sounds normal. Skin: Warm and dry, no rashes on exposed skin, normal color. Back: Nontender to palpation over the thoracolumbar spine. No CVAT. Extremities: No lower extremity edema, no calf tenderness or swelling. Unable to move right leg. Limited movement of right arm. Neurological: Awake and alert. Aphasic but following commands appropriately. Right upper and lower extremity judith paresis. Pupils equal. Extraocular movements full. Slight right facial droop. Psychiatric: Normal affect. Constitutional: Initial Vital Signs Heart Rate 66 01/17/17 13:45 Respiratory Rate 19 01/17/17 13:45 Blood Pressure 136/85 H 01/17/17 13:45 O2 Sat (%) 95 01/17/17 13:45 O2 Delivery Mode Room Air Allergies/Adverse Reactions: bacitracin zinc [From Neosporin] Allergy (Verified 01/03/17 03:46) cephalexin monohydrate [From Keflex] Allergy (Verified 01/03/17 03:46) clindamycin Allergy (Verified 01/03/17 03:46) codeine [Codeine] Allergy (Verified 01/03/17 03:46) gramicidin D [From Neosporin] Allergy (Verified 01/03/17 03:46) latex [Latex] Allergy (Verified 01/03/17 03:46) mupirocin [From Bactroban] Allergy (Verified 01/03/17 03:46) neomycin sulfate [From Neosporin] Allergy (Verified 01/03/17 03:46) NSAIDS (Non-Steroidal Anti-Inflamma [Nsaids] Allergy (Verified 01/03/17 03:46) peanut Allergy (Verified 01/03/17 03:46) Penicillins Allergy (Verified 11/11/16 12:12) polymyxin B [From Neosporin] Allergy (Verified 11/11/16 12:12) Sulfa (Sulfonamide Antibiotics) Allergy (Verified 11/11/16 12:12) sulfamethoxazole [From Bactrim] Allergy (Verified 11/11/16 12:12) trimethoprim [From Bactrim] Allergy (Verified 11/11/16 12:12) Home Medications: Medication Instructions Recorded Acetaminophen [Tylenol 325mg (*)] 650 mg PO Q4HRS PRN tab 12/19/16 Albuterol [Proventil Inhaler HFA 2 puffs IH Q4 PRN 12/19/16 (*)] Aspirin [Aspirin 81mg (*)] 243 mg PO DAILY 12/19/16 Cetirizine [ZyrTEC 10 mg (*)] 10 mg PO DAILY 12/19/16 Hydrocortisone 1% [Hydrocortisone 1 jo TP BID PRN cream 12/19/16 1% cream (*)] Insulin Aspart [novoLOG] 5 unit SC TIDMEAL 12/19/16 Insulin Detemir [Levemir] 35 units SC HS 12/19/16 hydrALAZINE [Apresoline 10 mg (*)] 10 mg PO BID 12/19/16 Apixaban [Eliquis] 5 mg PO BID tab 01/10/17 Atorvastatin Calcium [Lipitor 40 40 mg PO DAILY tab 01/10/17 mg (*)] Lisinopril [Zestril 20 mg (*)] 20 mg PO DAILY tab 01/10/17 Metoprolol Tartrate [Lopressor 25 12.5 mg PO BID tab 01/10/17 mg (*)] Tetrahydrozoline 0.05% [Visine (*)] 1 drops EACHEYE QID PRN opht.btl 01/10/17 hydrALAZINE [Apresoline 10 mg (*)] 10 mg PO QID PRN tab 01/10/17 Medical Decision Making - Diagnostics Imaging: Discussed imaging studies w/ scalloper Radiologist, I viewed and interpreted images myself ED Course/Re-evaluation: The patient is a 57 y/o male with a history of hypertension, diabetes, coronary artery disease, and an ischemic infarct, one week ago. He arrived via EMS as a stroke alert after staff at [facility] noticed acute worsening of right-sided weakness and facial droop, onset unclear. On exam he was not able to lift his right leg or arm or speak, but he was able to stick out his tongue and follow requests. EMS reports that they could not find blood thinners on his mediation list. After a brief exam he was sent immediately to CT scan. Given his recent stroke he is not a tPA candidate. 1318: I met EMS in the [place] on arrival. 1321: Patient sent to CT. 1329: I consulted with Dr. Ramires, neurologist at [facility]. He confirmed that the patient is not a candidate for TPA due to his recent stroke. 1355: I reassessed the patient in his room. He is experiencing aphasia, paresis in the right upper and lower extremities, and a slight facial droop. He is following directions appropriately. He has sensation in the right hand and is able to digital technician my finger but he cannot extend the fingers. He has slight rigidity on the right side. Baseline examination is not known to me. I was able to find Eliquis on his medication list provided by [facility]. 1406: I spoke with Dr. Blood, radiologist, regarding this patient. CT and angio remain unchanged from last week. My main concern was for acute hemorrhage. There is no evidence of acute hemorrhage. 1413: I spoke with Dr. Rudolph, hospitalist, regarding this patient's previous admission on 01/03/17. He knows the patient from his recent admission. He informs me that the patient's current condition is unchanged from his discharge. He has had very little speech and almost no use of right upper and lower extremity since his previous ischemic infarct. 1436: I reassessed patient and found his condition unchanged. His family has arrived. His mother arrived accompanied with his brother and father. I informed them of results of workup and our course of action. Due to his unchanged status and the lack of interventions that would benefit the patient I advised discharge back to [facility]. The patient requested his daughter and son be notified. He has something he wishes to communicate but is un able to do so orally. I had him try to write it on paper and he could write words but the sentence was not interpretable. 1506: I reassessed this patient and discussed what his message meant. He informed me he would like to return to [facility] and is not ready to go home to his family. I agree. Patient will be released to [facility]. Patient and family agree with this course of action. Return precautions given. Blood work reviewed. His blood sugar is high. No significant electrolyte abnormality. I do not suspect an infection today. It is my impression, based upon my review of his last medical records, my discussion with Dr. Rudolph, and my discussion with the patient/s family, that there is no significant change today. - Data Points Laboratory Results: Laboratory Results 01/17/17 13:48 01/17/17 13:48 Departure - Departure Disposition: Home, Routine, Self-Care Clinical Impression: Stroke, acute, within 8 weeks Condition: Fair Instructions: Self Care Measures After a Stroke (ED) Additional Instructions: 1. Continue medications and care as directed previously. 2. Return to the ED for dramatic worsening of condition. Referrals: SMITH TODD [Other] - As per Instructions Report Scribed for: Louisa Leon Report Scribed by: Mary Johnson Date of Report: 01/17/17 Time of Report: 13:44 Physician Review and Approval Statement: 01/17/17 13:16 Portions of this note were transcribed by the biomedical specialist. I, Dr. Louisa Leon, personally performed the history, physical exam, and medical decision- making; and confirmed the accuracy of the information in the transcribed note.
[2017-01-17] MEDS ORDERED: IOPAMIDOL (ISOVUE 370) 100 ML BTL IV ONE (13:29)
[2017-01-17 14:01] LABS: % IMMATURE GRANULYOCYTES 0.5 % (0.0-1.1); ABSOLUTE IMMATURE GRANULOCYTES 0.06 10^3/uL (0.00-0.10); ADD DIFF? NO; ADD MORPH? NO; ADD SCAN? NO; ATYPICAL LYMPHOCYTE FLAG 10 (0-99); FRAGMENT RBC FLAG 0 (0-99); HEMATOCRIT 54.1 % (40.0-51.0); LEFT SHIFT FLG 0 (0-99); LIPEMIA HEMOLYSIS FLAG 80 (0-99); MEAN CELL HEMOGLOBIN 28.8 pg (27.9-34.1); MEAN CELL HEMOGLOBIN CONCENTR. 33.3 g/dL (32.4-36.7); MEAN CELL VOLUME 86.4 fL (81.5-99.8); MEAN PLATELET VOLUME 9.5 fL (8.7-11.7); PLATELET CLUMPS FLAG 10 (0-99); PLATELET COUNT 280 10^3/uL (150-400); RED BLOOD CELL COUNT 6.26 10^6/uL (4.40-6.38); RED CELL DISTRIBUTION WIDTH 13.9 % (11.5-15.2)
[2017-01-17 14:03] LABS: ANION GAP 12 mEq/L (8-16); CALCIUM 9.8 mg/dL (8.5-10.4); CARBON DIOXIDE 24 mEq/l (22-31); CHLORIDE 103 mEq/L (97-110); CREATININE 1.2 mg/dL (0.7-1.3); GLOMERULAR FILTRATION RATE > 60; GLUCOSE 280 mg/dL (70-100); POTASSIUM 4.9 mEq/L (3.5-5.2); SODIUM 139 mEq/L (134-144)
[2017-01-17 14:06] LABS: INR 1.34 (0.83-1.16); PROTIME(PATIENT) 16.6 SEC (12.0-15.0)
[2017-01-17 14:07] LABS: APTT 27.7 SEC (23.0-38.0)
[2017-01-17 14:12] VITALS: TEMP 97.7
[2017-01-17 14:14] LABS: TROPONIN I < 0.012 ng/mL (0.000-0.034)
--- NOTE | 2017-01-17 14:14 | CPEKG ---
Heart Rate: 72 RR Interval: 833 P-R Interval: 188 QRSD Interval: 98 QT Interval: 400 QTC Interval: 438 P [place]: 24 QRS [place]: -16 T Wave [place]: 148 EKG Severity - ABNORMAL ECG - EKG Impression: SINUS RHYTHM EKG Impression: BORDERLINE LEFT AXIS DEVIATION EKG Impression: ABNORMAL T, CONSIDER ISCHEMIA, LATERAL LEADS Electronically Signed By: Dereck Copeland 17-Jan-2017 14:50:02
--- NOTE | 2017-01-17 16:45 | ASDISCHSUM ---
Discharge Information Plan Status:SNF Medically Cleared to Leave:01/17/2017 Discharge Date:01/17/2017 CM D/C Disposition:[facility] ADT D/C Disposition:Home, Routine, Self-Care Projected Discharge Date:01/17/2017 Transportation at D/C:ALS/BLS Discharge Delay Reason: Follow-Up Date:01/17/2017 Discharge Slot: Final Diagnosis: Placement Information Referral Type:*Usp/SNF Referral ID:[id number] Provider Name:[facility] Address 1:[address] Address 2: City:[place] Selection Factors: State:[place] Patient Contact Information Contact Name:JAYLENE Relationship:Daughter Address: Work Phone: City: [facility] Phone: State/Zip Code:[place] Email: Financial Information Financial Class:MD Primary Plan Desc:MEDICAID [employer] TECH Primary Plan Number:[id number] Secondary Plan Desc: Secondary Plan Number: Assessment Information Intervention Information Intervention Type:Transportation Date of Service:01/17/2017 04:41 PM Patient Type:Emergency Room Staff Member:JEROMY Henao JoAnna Hours:0.25 Discipline:Launch Steward Severity:1 (0-1 Hours) Comment:
[2017-01-17 16:48] VITALS: BP 164/108; PULSE 70; O2SAT 95
[2017-01-17 16:51] VITALS: RESP 16
== END 2017-01-17 16:51 | disposition home or self-care (01) ==
LOC: EDUNIT#
DX: I63.9 Cerebral infarction, unspecified (principal); I10 Essential (primary) hypertension; I25.10 Atherosclerotic heart disease of native coronary artery without angina pectoris; E11.9 Type 2 diabetes mellitus without complications; Z79.4 Long term (current) use of insulin; Z79.82 Long term (current) use of aspirin; Z91.010 Allergy to peanuts; Z95.5 Presence of coronary angioplasty implant and graft; Z91.040 Latex allergy status
CPT/HCPCS: 82947-QW; Q9967

== ENCOUNTER 2018-01-05 12:17 | Observation (INO) | payer MEDICAID ==
[2018-01-05 12:45] LABS: PLATELET COUNT 247 10^3/uL (150-400)
[2018-01-05] MEDS ORDERED: ZOLPIDEM TARTRATE 5 MG TAB PO PRN (14:00)
[2018-01-05] MEDS ORDERED: ONDANSETRON 4 MG/2 ML VIAL IVP PRN (14:00)
[2018-01-05] MEDS ORDERED: ACETAMINOPHEN 325 MG TAB PO PRN (14:00)
--- NOTE | 2018-01-05 14:07 | PDGENHP ---
History and Physical - Chief Complaint Chest Pain - History of Present Illness Mr. Lin is a 57 yo male with a PMHx of CAD, OR s/p 3 stents who presents to [facility] with chest pain. He reports sudden onset of chest pain at 10 AM this AM which was located in the center of his chest with radiation to both of his shoulders. He describes pain as sharp, was rated as 8/10. It resolved within 1 hour without any intervention. He reports no chest pain at times of interview. He denies related diaphoresis, nausea, SOB. History Information - Allergies/Home Medication List Allergies/Adverse Reactions: bacitracin zinc [From Neosporin] Allergy (Verified 01/03/17 03:46) cephalexin monohydrate [From Keflex] Allergy (Verified 01/03/17 03:46) clindamycin Allergy (Verified 01/03/17 03:46) codeine [Codeine] Allergy (Verified 01/03/17 03:46) gramicidin D [From Neosporin] Allergy (Verified 01/03/17 03:46) latex [Latex] Allergy (Verified 01/03/17 03:46) mupirocin [From Bactroban] Allergy (Verified 01/03/17 03:46) neomycin sulfate [From Neosporin] Allergy (Verified 01/03/17 03:46) NSAIDS (Non-Steroidal Anti-Inflamma [Nsaids] Allergy (Verified 01/03/17 03:46) peanut Allergy (Verified 01/03/17 03:46) Penicillins Allergy (Verified 11/11/16 12:12) polymyxin B [From Neosporin] Allergy (Verified 11/11/16 12:12) Sulfa (Sulfonamide Antibiotics) Allergy (Verified 11/11/16 12:12) sulfamethoxazole [From Bactrim] Allergy (Verified 11/11/16 12:12) trimethoprim [From Bactrim] Allergy (Verified 11/11/16 12:12) Home Medications: Albuterol [Proventil Inhaler HFA (*)] 2 puffs IH Q4 PRN 12/19/16 [Last Taken ] Aspirin [Aspirin 81mg (*)] 243 mg PO DAILY 12/19/16 [Last Taken 01/02/17] Cetirizine [ZyrTEC 10 mg (*)] 10 mg PO DAILY 12/19/16 [Last Taken 01/02/17] Insulin Aspart [novoLOG] 5 unit SC TIDMEAL 12/19/16 [Last Taken 01/02/17] Insulin Detemir [Levemir] 25 units SC HS 12/19/16 [Last Taken 01/02/17] hydrALAZINE [Apresoline 10 mg (*)] 10 mg PO BID 12/19/16 [Last Taken 01/02/17] Atorvastatin Calcium [Lipitor 40 mg (*)] 40 mg PO HS 01/05/18 [Last Taken Unknown] Baclofen [Baclofen 10 mg (*)] 5 mg PO TID 01/05/18 [Last Taken Unknown] Bisacodyl [Dulcolax] 10 mg RC DAILY PRN 01/05/18 [Last Taken Unknown] Calcium Carbonate [Oyster Shell Calcium 500 mg (*)] 500 mg PO TID PRN 01/05/18 [ Last Taken Unknown] EPINEPHrine [Epipen 0.3 MG] 0.3 mg IM ONCE 01/05/18 [Last Taken Unknown] FLUoxetine [Prozac 20 MG (*)] 40 mg PO DAILY 01/05/18 [Last Taken Unknown] Gabapentin [Neurontin 100 MG (*)] 100 mg PO TID 01/05/18 [Last Taken Unknown] Ketoconazole 2% [Nizoral 2% Cream (*)] 1 jo TP WESA 01/05/18 [Last Taken Unknown] Levothyroxine [Synthroid 50 mcg (*)] 50 mcg PO DAILY06 01/05/18 [Last Taken Unknown] Metoprolol Tartrate [Lopressor 25 mg (*)] 25 mg PO BID 01/05/18 [Last Taken Unknown] Ondansetron Odt [Zofran Odt 4 mg (*)] 4 mg PO Q4HRS PRN 01/05/18 [Last Taken Unknown] Polyethylene Glycol 3350 [Miralax 17 gm (*)] 17 gm PO DAILY 01/05/18 [Last Taken Unknown] Rivaroxaban [Xarelto 10mg (*)] 20 mg PO DAILY 01/05/18 [Last Taken Unknown] Sennosides/Docusate Sodium [Senna-S Tablet] 2 each PO BID PRN 01/05/18 [Last Taken Unknown] Sennosides/Docusate Sodium [Senna-S Tablet] 2 each PO DAILY 01/05/18 [Last Taken Unknown] Tetrahydrozoline 0.05% [Visine (*)] 1 drop EACHEYE DAILY PRN 01/05/18 [Last Taken Unknown] guaiFENesin [Mucinex 600 MG (*)] 600 mg PO BID PRN 01/05/18 [Last Taken Unknown] hydrALAZINE [Apresoline 10 mg (*)] 10 mg PO DAILY PRN 01/05/18 [Last Taken Unknown] traMADol [Ultram 50 mg (*)] 50 mg PO Q4HRS PRN 01/05/18 [Last Taken Unknown] I have personally reviewed and updated: family history, medical history, social history, surgical history - Past Medical History atrial fibrillation (paroxysmal), coronary artery disease (w/ LAD stent), diabetes type 2 (w/ gastroparesis), hypertension, hyperlipidemia Additional medical history: Morbid obesity. Hepatic Steatosis. Mac Degeneration. Recurrent leg wounds/cellulitis w/ venous stasis - Surgical History Additional surgical history: Umbilical hernia repair - Family History Additional family history: mother w/ CAD/HTN/DM, father w/ CAD/PPM - Social History Smoking Status: Never smoked Additional social history: lives w/ hoarders (parents, sibling) Review of Systems Review of Systems: ROS: 10pt was reviewed & negative except for what was stated in HPI & below Physical Exam Physical Exam: Temp Pulse Resp BP Pulse Ox 36.6 C 59 L 18 181/122 H 95 01/05/18 12:26 01/05/18 12:26 01/05/18 12:26 01/05/18 12:26 01/05/18 12:26 Constitutional: no apparent distress, chronically ill appearing Eyes: PERRL Ears, Nose, Mouth, Throat: moist mucous membranes Cardiovascular: regular rate and rhythym Respiratory: no respiratory distress, clear to auscultation Gastrointestinal: normoactive bowel sounds, soft, non-tender abdomen Genitourinary: no bladder tenderness Skin: warm, abrasion Musculoskeletal: no muscle tenderness Neurologic: weakness Psychiatric: interacting appropriately Lab Data & Imaging Review 01/05/18 12:25 01/05/18 12:25 WBC 7.67 10^3/uL (3.80-9.50) 01/05/18 12:25 RBC 5.64 10^6/uL (4.40-6.38) 01/05/18 12:25 Hgb 16.0 g/dL (13.7-17.5) 01/05/18 12:25 Hct 47.9 % (40.0-51.0) 01/05/18 12:25 MCV 84.9 fL (81.5-99.8) 01/05/18 12:25 MCH 28.4 pg (27.9-34.1) 01/05/18 12:25 MCHC 33.4 g/dL (32.4-36.7) 01/05/18 12:25 RDW 14.2 % (11.5-15.2) 01/05/18 12:25 Plt Count 247 10^3/uL (150-400) 01/05/18 12:25 MPV 9.0 fL (8.7-11.7) 01/05/18 12:25 Neut % (Auto) 71.5 % (39.3-74.2) 01/05/18 12:25 Lymph % (Auto) 18.0 % (15.0-45.0) 01/05/18 12:25 Hyde % (Auto) 6.3 % (4.5-13.0) 01/05/18 12:25 Eos % (Auto) 3.3 % (0.6-7.6) 01/05/18 12:25 Baso % (Auto) 0.4 % (0.3-1.7) 01/05/18 12:25 Nucleat RBC Rel Count 0.0 % (0.0-0.2) 01/05/18 12:25 Absolute Neuts (auto) 5.49 10^3/uL (1.70-6.50) 01/05/18 12:25 Absolute Lymphs (auto) 1.38 10^3/uL (1.00-3.00) 01/05/18 12:25 Absolute Monos (auto) 0.48 10^3/uL (0.30-0.80) 01/05/18 12:25 Absolute Eos (auto) 0.25 10^3/uL (0.03-0.40) 01/05/18 12:25 Absolute Basos (auto) 0.03 10^3/uL (0.02-0.10) 01/05/18 12:25 Absolute Nucleated RBC 0.00 10^3/uL (0-0.01) 01/05/18 12:25 Immature Gran % 0.5 % (0.0-1.1) 01/05/18 12:25 Immature Gran # 0.04 10^3/uL (0.00-0.10) 01/05/18 12:25 Sodium 137 mEq/L (135-145) 01/05/18 12:25 Potassium 4.5 mEq/L (3.3-5.0) 01/05/18 12:25 Chloride 99 mEq/L (97-110) 01/05/18 12:25 Carbon Dioxide 29 mEq/l (22-31) 01/05/18 12:25 Anion Gap 9 mEq/L (8-16) 01/05/18 12:25 BUN 11 mg/dL (7-23) 01/05/18 12:25 Creatinine 0.7 mg/dL (0.7-1.3) 01/05/18 12:25 Estimated GFR > 60 01/05/18 12:25 Glucose 228 mg/dL (70-100) H 01/05/18 12:25 Calcium 8.9 mg/dL (8.5-10.4) 01/05/18 12:25 POC Troponin I 0.01 ng/mL (0.00-0.08) 01/05/18 12:23 EKG Interpretation: Positive for: NS ST wave abnormalities Assessment & Plan Assessment: Chest Pain - Sudden onset this morning at 10, central, non-radiating, with no associated symptoms - EKG on admission with no acute ST-T wave changes - Troponin negative x1, will continue to trend x3 - If recurrence of chest pain repeat EKG and Troponin Hypertensive Urgency - BP in ED 181/122 - Reports he took BP medications this AM which included Hydralazine, Metoprolol , Lisinopril - Will give additional dose and scheduled oral BP medications - Will order Hydralazine IV PRN for SBP>180 HTN - Tx of Hypertensive urgency as above - Continue home Hydralazine, Lisinopril, and Metoprolol titrate as needed Gastroparesis - Reports to being constipated - Has been on Reglan in the past but d/c due to Tardive Dyskinesia - Will order bowel regimen T2DM - Continue home Levemir, SSI - Hx of CVA - Continue home ASA, Xarelto, and Atrovastatin FEN: PRN DVT: Home Xarelto Code: DNI Dispo: Admit to Observation, pending clinical course
[2018-01-05] MEDS ORDERED: hydrALAZINE 20 MG/ML VIAL IVP PRN (14:39)
[2018-01-05] MEDS ORDERED: BISACODYL 10 MG SUPP PR PRN (14:40)
[2018-01-05] MEDS ORDERED: ALBUTEROL 60 PUFFS/8 GM MDI IH PRN (14:40)
[2018-01-05] MEDS ORDERED: SENNOSIDES/DOCUSATE SODIUM TAB PO PRN (14:40)
[2018-01-05] MEDS ORDERED: traMADol 50 MG TAB PO PRN (14:40)
[2018-01-05] MEDS ORDERED: D50W 25 GM/50 ML SYR IVP PRN (14:44)
[2018-01-05] MEDS: hydrALAZINE 10 MG TAB PO SCH ×2 (15:16→21:37)
[2018-01-05] MEDS: BACLOFEN 10 MG TAB PO SCH ×2 (15:17→21:36)
[2018-01-05] MEDS: GABAPENTIN 100 MG CAP PO SCH ×2 (15:17→21:36)
[2018-01-05] MEDS ORDERED: hydrALAZINE 10 MG TAB PO PRN (16:00)
[2018-01-05] MEDS: INSULIN LISPRO 100 UNIT/ML SC SCH ×3 (16:51→18:33)
--- NOTE | 2018-01-05 20:58 | CPEKG ---
Test Reason : OPEN Blood Pressure : / mmHG Vent. Rate : 059 BPM Atrial Rate : 060 BPM P-R Int : 194 ms QRS Dur : 093 ms QT Int : 423 ms P-R-T Axes : 007 -23 -13 degrees QTc Int : 419 ms Sinus rhythm Atrial premature complex Abnormal R-wave progression, early transition Left ventricular hypertrophy Inferior infarct, old Confirmed by Louisa Leon ([id number]) on 01/05/2018 8:58:20 PM Referred By: Confirmed By:Louisa Leon
[2018-01-05] MEDS ORDERED: INSULIN GLARGINE 100 UNITS/ML UNIT SC SCH (21:00)
[2018-01-05] MEDS ORDERED: ATORVASTATIN CALCIUM 40 MG TAB PO SCH (21:00)
[2018-01-05] MEDS: TETRAHYDROZOLINE 0.05% 15 ML OPHT.BTL EACHEYE PRN (21:37)
[2018-01-05] MEDS: METOPROLOL TARTRATE 25 MG TAB PO SCH (21:37)
[2018-01-06] MEDS ORDERED: LEVOTHYROXINE 50 MCG TAB PO SCH (06:00)
[2018-01-06] MEDS: hydrALAZINE 10 MG TAB PO SCH (08:04)
[2018-01-06] MEDS ORDERED: LISINOPRIL 20 MG TAB PO SCH (09:00)
[2018-01-06] MEDS ORDERED: ASPIRIN 81 MG CHEWABLE TAB PO SCH (09:00)
[2018-01-06] MEDS ORDERED: RIVAROXABAN 20 MG TAB PO SCH (09:00)
[2018-01-06] MEDS ORDERED: POLYETHYLENE GLYCOL 3350 17 GM PKT PO SCH (09:00)
[2018-01-06] MEDS ORDERED: SENNOSIDES/DOCUSATE SODIUM TAB PO SCH (09:00)
[2018-01-06] MEDS ORDERED: FLUoxetine 20 MG CAP PO SCH (09:00)
[2018-01-06] MEDS: INSULIN LISPRO 100 UNIT/ML SC SCH ×4 (09:02→13:04)
[2018-01-06] MEDS: BACLOFEN 10 MG TAB PO SCH (09:06)
[2018-01-06] MEDS: GABAPENTIN 100 MG CAP PO SCH (09:07)
[2018-01-06] MEDS: METOPROLOL TARTRATE 25 MG TAB PO SCH (09:18)
[2018-01-06] MEDS: TETRAHYDROZOLINE 0.05% 15 ML OPHT.BTL EACHEYE PRN (11:05)
[2018-01-06] MEDS ORDERED: hydrALAZINE 10 MG TAB PO SCH (11:19)
--- NOTE | 2018-01-06 12:19 | PDIAF ---
- Diagnosis Diagnosis: Chest Pain Code Status: Limited Resuscitation - Medication Management Discharge Medications: Medications to Continue on Transfer Acetaminophen [Tylenol 325mg (*)] 650 mg PO Q4HRS PRN tab 12/19/16 [Last Taken 01/02/17] Albuterol [Proventil Inhaler HFA (*)] 2 puffs IH Q4 PRN 12/19/16 [Last Taken ] Aspirin [Aspirin 81mg (*)] 243 mg PO DAILY 12/19/16 [Last Taken 01/02/17] Cetirizine [ZyrTEC 10 mg (*)] 10 mg PO DAILY 12/19/16 [Last Taken 01/02/17] Hydrocortisone 1% [Hydrocortisone 1% cream (*)] 1 jo TP BID PRN cream [Last Taken 01/02/17] Insulin Aspart [novoLOG] 5 unit SC TIDMEAL 12/19/16 [Last Taken 01/02/17] Insulin Detemir [Levemir] 25 units SC HS 12/19/16 [Last Taken 01/02/17] Lisinopril [Zestril 20 mg (*)] 20 mg PO DAILY tab 01/10/17 [Last Taken Unknown] Atorvastatin Calcium [Lipitor 40 mg (*)] 40 mg PO HS 01/05/18 [Last Taken Unknown] Baclofen [Baclofen 10 mg (*)] 5 mg PO TID 01/05/18 [Last Taken Unknown] Bisacodyl [Dulcolax] 10 mg RC DAILY PRN 01/05/18 [Last Taken Unknown] Calcium Carbonate [Oyster Shell Calcium 500 mg (*)] 500 mg PO TID PRN 01/05/18 [ Last Taken Unknown] EPINEPHrine [Epipen 0.3 MG] 0.3 mg IM ONCE 01/05/18 [Last Taken Unknown] FLUoxetine [Prozac 20 MG (*)] 40 mg PO DAILY 01/05/18 [Last Taken Unknown] Ketoconazole 2% [Nizoral 2% Cream (*)] 1 jo TP WESA 01/05/18 [Last Taken Unknown] Levothyroxine [Synthroid 50 mcg (*)] 50 mcg PO DAILY06 01/05/18 [Last Taken Unknown] Metoprolol Tartrate [Lopressor 25 mg (*)] 25 mg PO BID 01/05/18 [Last Taken Unknown] Ondansetron Odt [Zofran Odt 4 mg (*)] 4 mg PO Q4HRS PRN 01/05/18 [Last Taken Unknown] Polyethylene Glycol 3350 [Miralax 17 gm (*)] 17 gm PO DAILY 01/05/18 [Last Taken Unknown] Rivaroxaban [Xarelto 10mg (*)] 20 mg PO DAILY 01/05/18 [Last Taken Unknown] Sennosides/Docusate Sodium [Senna-S Tablet] 2 each PO BID PRN 01/05/18 [Last Taken Unknown] Sennosides/Docusate Sodium [Senna-S Tablet] 2 each PO DAILY 01/05/18 [Last Taken Unknown] Tetrahydrozoline 0.05% [Visine (*)] 1 drop EACHEYE DAILY PRN 01/05/18 [Last Taken Unknown] guaiFENesin [Mucinex 600 MG (*)] 600 mg PO BID PRN 01/05/18 [Last Taken Unknown] traMADol [Ultram 50 mg (*)] 50 mg PO Q4HRS PRN 01/05/18 [Last Taken Unknown] Gabapentin [Neurontin 300 MG (*)] 300 mg PO TID #90 cap 01/06/18 [Last Taken Unknown] Pantoprazole Sodium [Protonix 40mg (*)] 40 mg PO DAILY #30 tab 01/06/18 [Last Taken Unknown] hydrALAZINE [Apresoline 10 mg (*)] 25 mg PO BID tab 01/06/18 [Last Taken Unknown] Discharge Medications: Refer to the Discharge Home Medication list for PRN reason. - Orders Services needed: Registered Nurse, Certified Concrete Buster Operator, Physical Therapy, Occupational Therapy Diet Recommendation: no restrictions on diet - Follow Up Care Current Providers and Referrals: PEDRO JOHNSTON [Other]
--- NOTE | 2018-01-06 12:42 | GDS ---
ALL DIAGNOSES: 1. Chest pain, noncardiac. 2. Hypertension. 3. Gastroparesis. 4. Diabetes mellitus type 2. 5. Coronary artery disease status post stents. 6. History of a cerebrovascular accident. 7. Atrial fibrillation on anticoagulation. HOSPITAL COURSE: This is a 57-year-old man who lives at [facility] after having had a stroke who pre sents with sudden chest pain. He was seen by Cardiology, who felt that this was noncardiac. I feel like this most likely is either musculoskeletal versus GI in nature. It is somewhat reproducible on palpation. I have increased his gabapentin for musculoskeletal complaints. I have given him a trial of Protonix for GI complaints. If Protonix does not seem to be having a significant impact, would d iscontinue this as an outpatient. Notable negative workup includes troponins as well as nonischemic EKG. PE is very unlikely given his Xarelto use. I have discussed all this with the patient. He is discharged in stable condition. Medication changes include an increase in his hydralazine to 25 mg p .o. b.i.d., increase in his gabapentin to 300 mg t.i.d. Addition of Protonix for a trial of GERD sup pression. /[id number]/MODL
[2018-01-06 12:44] VITALS: BP 125/66
--- NOTE | 2018-01-06 13:22 | GCON ---
CARDIOLOGY CONSULTATION DATE OF CONSULTATION: 01/06/2018 REFERRING PHYSICIAN: David Hernandez MD PRIMARY VENETIAN BLIND WORKER: Dr. Garett Patrick. We were asked by Dr. Hernandez of [facility] to evaluate the patient for his coronary artery dis ease. HISTORY OF PRESENT ILLNESS: The patient is a 57-year-old male, well known to us from previous hospit al and clinic visits. He has a history of CAD, status post PTCA and stenting of his LAD in 2014. He also had a likely cardioembolic stroke in December of 2016, affecting the left anterior cerebral ar [place]. This has resulted in right-sided weakness. He is currently not ambulatory and uses his wheelchair. He reports over the past 6 months that he has had a midsternal to left-sided chest p ain. He describes it as sharp and at a 7/10 at its most intense. Symptoms will last for an hour and spontaneously resolve. He denies any associated nausea, but feels that he may be somewhat short of breath. He has also reported this on other office visits with the last at our office in December. At that time, he felt it was related to using his wheelchair and the strain from having to use his ar ms to move the wheels. Yesterday, at approximately 10 a.m., he reported the discomfort again, and he was brought into the emergency department for further evaluation. He reports he is currently pain f ree. However, on chest wall palpation, at first, he reports symptoms feel improved, and then upon pa lpating the intercostal muscles, he notes very sharp, severe pain similar to what brought him in. PAST MEDICAL HISTORY: Includes: 1. CAD, status post PTCA and stenting in 2014. 2. Hypertension. 3. Diabetes. 4. Stroke with residual deficits. 5. Paroxysmal atrial fibrillation, on chronic anticoagulation. 6. Hypertension. PAST SURGICAL HISTORY: Includes umbilical hernia repair. FAMILY HISTORY: Includes mother with CAD and father with CAD and pacemaker. SOCIAL HISTORY: Patient is a nonsmoker. He is a resident at [facility]. REVIEW OF SYSTEMS: Somewhat limited, but the patient does reply to questions in an appropriate sebastian r. He denies any other symptoms, such as fever, chills, cough, hemoptysis, PND, or orthopnea. MEDICATIONS: Outpatient medications include rivaroxaban, Zofran, cetirizine, tramadol, Visine, senna , insulin, fluoxetine, guaifenesin, MiraLAX, metoprolol, lisinopril, levothyroxine, atorvastatin, ket oconazole cream, insulin, hydrocortisone, EpiPen, calcium carbonate, bisacodyl, baclofen, aspirin, al buterol, Tylenol, hydralazine, pantoprazole, and Neurontin. ALLERGIES: Bacitracin, Keflex, clindamycin, codeine, Neosporin, latex, mupirocin, neomycin, NSAIDs, penicillin, polymyxin B, sulfa, and trimethoprim. PHYSICAL EXAMINATION: VITAL SIGNS: BP of 142/77, heart rate 53, respirations 20, O2 saturation 93% on room air, temp of 97.4 degrees Fahrenheit. GENERAL: He is a pleasant male in no apparent distres s. HEENT: Normocephalic, atraumatic. Eyes are without scleral icterus. HEART: Regular rate and r hythm. LUNGS: Clear. ABDOMEN: Soft, obese, with normoactive bowel sounds. SKIN: Warm and dry. P SYCH: Patient appears oriented. LABORATORY DATA: CBC with WBC 7.67, hemoglobin 16, hematocrit 47.9, platelet count 247. Troponin ne gative x3. BMP with sodium 137, potassium 4.5, chloride 99, CO2 29, BUN 11, creatinine 0.7, glucose 228. A 12-lead ECG personally interpreted from 01/05/2018, shows a sinus rhythm with a first-degree AV block, inferior Q's. Chest x-ray reviewed shows poor inspiratory effort with bronchovascular manzanita ding on both lower lobes, with questionable mild bronchitis. Echo from 06/06/2016 shows normal LVF, diastolic dysfunction, borderline concentric LVH. Cardiac catheterization from 06/07/2016 shows mid LAD in-stent restenosis at 20-30, mid RCA of 40%. Nuclear stress test from that admission showed a s mall area of inferolateral ischemia. IMPRESSION AND PLAN: The patient is a 57-year-old male admitted with chest pain. 1. Chest pain. He has coronary artery disease, but chest pain is quite atypical. I had Dr. Marvin s review his cardiac catheterization. At this time, we would just recommend medical management, incl uding continuation of his beta nimisha. His analgesia should also be modified as his symptoms do see m musculoskeletal currently in etiology. 2. Stroke. He is currently a group home resident due to his residual deficits from his stroke. H e should be continued on Xarelto for life. 3. Paroxysmal atrial fibrillation. None was seen on telemetry in this admission. 4. Hypertension. Blood pressure is not optimally controlled. We recommend increasing his hydralazi ne and eliminating p.r.n. dosing of hydralazine to preferably a scheduled dosing. 5. Diabetes. At this time, his diabetes appears well controlled. He may follow up with this as an outpatient. /[id number]/MODL
--- NOTE | 2018-01-06 16:36 | ASMTLACE ---
GENARO Length of stay for Answers: 1 day current admission Acuity / Level of Answers: No Care: Did the patient have an inpatient admission? Comorbidities - select Answers: Cerebrovascular disease all that apply (CVA, TIA, aneurysms, vasc ular dementia) Coronary Artery Disease Diabetes (uncontrolled or controlled) Opioid dependence / Chronic pain Previous myocardial infarction Other Notes: AFib; HTN; HLD # of Emergency department Answers: 1-2 visits in the last 6 months Social determinants Answers: Mental health diagnosis (anxiety, depression, pers onality disorders, etc.) Score: 15 Date Signed: 01/06/2018 04:35 PM Electronically Signed By:Arleen Kraus
--- NOTE | 2018-01-06 16:38 | ASMTDCNOTE ---
Case Management Discharge Discharge Order Complete? Answers: Yes Patient to Obtain Answers: [facility] Transportation Arranged Answers: Other Notes: [facility] will Pick (Date 01/06/2018 04:00 PM & Time) Case Management Transport Answers: Yes Form Complete Faxed Final Orders Answers: Yes Agency/Facility Transfer Answers: Yes Report Printed & Faxed to Receiving Agency Discharge Comments Notes: Pt d/linda back to [facility]. Date Signed: 01/06/2018 04:37 PM Electronically Signed By:Arleen Kraus
--- NOTE | 2018-01-06 17:50 | CPEKG ---
Test Reason : OPEN Blood Pressure : / mmHG Vent. Rate : 056 BPM Atrial Rate : 056 BPM P-R Int : 201 ms QRS Dur : 106 ms QT Int : 448 ms P-R-T Axes : 048 -17 -47 degrees QTc Int : 433 ms Sinus rhythm Inferior infarct, old Confirmed by Adama Green ([id number]) on 01/06/2018 5:50:09 PM Referred By: Confirmed By:Adama Green
[2018-01-07] MEDS ORDERED: KETOCONAZOLE 2% 15 GM CREAM TP SCH (09:00)
--- NOTE | 2018-01-07 09:40 | ASDISCHSUM ---
Discharge Information Plan Status:SNF Medically Cleared to Leave: Discharge Date:01/06/2018 02:39 PM D/C Disposition:[facility] Facility ADT D/C Disposition:[facility] Facility Projected Discharge Date:01/06/2018 01:00 AM Transportation at D/C:Other Discharge Delay Reason: Follow-Up Date:01/06/2018 01:00 AM Discharge Slot: Final Diagnosis: Placement Information Referral Type:*Prison/SNF Referral ID:[id number] Provider Name:[facility] Address 1:[address] Address 2: City:[place] Selection Factors: State:[place] Patient Contact Information Contact Name:SHAKEELJOSEDurga Relationship:Daughter Address:[address] [place] [address] Work Phone: [facility]:[place] Alternate Phone: State/Zip Code:[place] [address] Email: Financial Information Financial Class:Medicaid Primary Plan Desc:MEDICAID [facility] [employer] FOLDER OPERATOR Primary Plan Number:[id number] Secondary Plan Desc: Secondary Plan Number: Assessment Information LACE LACE Length of stay for Answers: 1 day current admission Acuity / Level of Answers: No Care: Did the patient have an inpatient admission? Comorbidities - select Answers: Cerebrovascular disease all that apply (CVA, TIA, aneurysms, vasc ular dementia) Coronary Artery Disease Diabetes (uncontrolled or controlled) Opioid dependence / Chronic pain Previous myocardial infarction Other Notes: AFib; HTN; HLD # of Emergency department Answers: 1-2 visits in the last 6 months Social determinants Answers: Mental health diagnosis (anxiety, depression, pers onality disorders, etc.) Score: 15 Date Signed: 01/06/2018 04:35 PM Electronically Signed By:Arleen Kraus Case Management Discharge Plan Note Case Management Discharge Discharge Order Complete? Answers: Yes Patient to Obtain Answers: Other Notes: [facility] Medications Transportation Arranged Answers: Other Notes: [facility] will Pick (Date 01/06/2018 04:00 PM & Time) Case Management Transport Answers: Yes Form Complete Faxed Final Orders Answers: Yes Agency/Facility Transfer Answers: Yes Report Printed & Faxed to Receiving Agency Discharge Comments Notes: Pt d/linda back to [facility]. Date Signed: 01/06/2018 04:37 PM Electronically Signed By:Arleen Kraus Intervention Information
== END 2018-01-06 14:39 ==
LOC: EDUNIT# → EDBD → F2W 14:42
PROVIDERS: ADMIT Internal Medicine; ATTEND Internal Medicine
DX: R07.89 Other chest pain (principal); I10 Essential (primary) hypertension; I25.10 Atherosclerotic heart disease of native coronary artery without angina pectoris; Z95.5 Presence of coronary angioplasty implant and graft; I48.92 Unspecified atrial flutter; Z79.01 Long term (current) use of anticoagulants; E11.43 Type 2 diabetes mellitus with diabetic autonomic (poly)neuropathy
CPT/HCPCS: 71046; 93005; 96374; 96375; 96376; 99285; G0378; 84484-PO; J1815